=== PATIENT | male | born 1940 | race Caucasian/White ===

== ENCOUNTER 2016-08-04 03:30 | Inpatient (IN) | payer BC ==
--- NOTE | 2016-08-04 03:46 | PDOC ---
History of Present Illness - General History Source: Patient Exam Limitations: No Limitations - History of Present Illness Initial Comments: 08/04/16 05:46 The patient is a 75 year old male with a PMHx of HTN, hypercholesterolemia, stents s/p GA, on dialysis with left arm fistula who presents to the ED with AV shunt bleeding tonight. The patient states that a scab formed around his shunt. He states that while cleaning his arm, the scab peeled and it started bleeding excessively. He denies any other complaints. <Zamzam Powell - Last Filed: 08/04/16 06:54> <Maisha Melendez - Last Filed: 08/04/16 07:30> - General Chief Complaint: AV shunt bleeding Stated Complaint: BLEEDING LEFT ARM Time Seen by Provider: 08/04/16 03:46 Past History <Zamzam Powell - Last Filed: 08/04/16 06:54> <Maisha Melendez - Last Filed: 08/04/16 07:30> - Past Medical History Allergies/Adverse Reactions: Allergies Allergy/AdvReac Type Severity Reaction Status Date / Time No Known Allergies Allergy Verified 08/04/16 04:02 Home Medications: Ambulatory Orders Aspirin [ASA -] 81 mg PO BID 08/04/16 Calcium Acetate [Phoslo -] 667 mg PO TIDCM 08/04/16 Carvedilol [Coreg -] 3.125 mg PO ASDIR 08/04/16 Clopidogrel Bisulfate [Plavix -] 75 mg PO DAILY 08/04/16 Folic Acid 1 mg PO TID 08/04/16 Sevelamer Carbonate [Renvela] 800 mg PO BID 08/04/16 Review of Systems - Review of Systems Comments:: 08/04/16 05:46 GENERAL/CONSTITUTIONAL: No fever or chills. No weakness. HEAD, EYES, EARS, NOSE AND THROAT: No change in vision. No ear pain or discharge. No sore throat. CARDIOVASCULAR: No chest pain or shortness of breath. RESPIRATORY: No cough, wheezing, or hemoptysis. GASTROINTESTINAL: No nausea, vomiting, diarrhea or constipation. GENITOURINARY: No dysuria, frequency, or change in urination. MUSCULOSKELETAL: No joint or muscle swelling or pain. No neck or back pain. SKIN: + active bleeding in left arm. No rash NEUROLOGIC: No headache, vertigo, loss of consciousness, or change in strength/ sensation. ENDOCRINE: No increased thirst. No abnormal weight change. HEMATOLOGIC/LYMPHATIC: No anemia, easy bleeding, or history of blood clots. ALLERGIC/IMMUNOLOGIC: No hives or skin allergy. <PowellJuan R carrilloZamzam A - Last Filed: 08/04/16 06:54> *Physical Exam - Vital Signs Last Vital Signs Temp Pulse Resp BP Pulse Ox 98.2 F 84 19 90/57 98 08/04/16 03:55 08/04/16 03:55 08/04/16 03:55 08/04/16 03:55 08/04/16 03:55 - Physical Exam Comments: 08/04/16 05:47 GENERAL: Awake, alert, and fully oriented, in no acute distress HEAD: No signs of trauma EYES: PERRLA, EOMI, sclera anicteric, conjunctiva clear ENT: Auricles normal inspection, hearing grossly normal, nares patent, oropharynx clear without exudates. Moist mucosa NECK: Normal ROM, supple, no lymphadenopathy, JVD, or masses LUNGS: Breath sounds equal, clear to auscultation bilaterally. No wheezes, and no crackles HEART: Regular rate and rhythm, normal S1 and S2, no murmurs, rubs or gallops ABDOMEN: Soft, nontender, normoactive bowel sounds. No guarding, no rebound. No masses EXTREMITIES: Normal range of motion, no edema. No clubbing or cyanosis. No cords, erythema, or tenderness NEUROLOGICAL: Cranial nerves II through XII grossly intact. Normal speech, normal gait SKIN: Warm, Dry, normal turgor, no rashes or lesions noted. <Zamzam Powell A - Last Filed: 08/04/16 06:54> ED Treatment Course - LABORATORY CBC & Chemistry Diagram: 08/04/16 04:18 08/04/16 04:18 - ADDITIONAL ORDERS Additional order review: Laboratory Results 08/04/16 08/04/16 08/04/16 04:18 04:18 04:18 INR 1.02 PTT (Actin FS) 37.2 H Sodium 138 Potassium 5.2 H Chloride 96 L Carbon Dioxide 25 Anion Gap 17 H BUN 44 H Creatinine 11.4 H* Creat Clearance w eGFR 4.42 Random Glucose 111 H Calcium 8.4 L Total Bilirubin 1.6 H AST 7 L ALT 17 Alkaline Phosphatase 102 Total Protein 6.5 Albumin 3.4 08/04/16 04:18 RBC 4.38 MCV 96.8 H MCHC 33.9 RDW 15.3 MPV 9.2 Neutrophils % 72.2 Lymphocytes % 15.4 Monocytes % 6.2 Eosinophils % 4.7 H Basophils % 1.5 <Zamzam Powell - Last Filed: 08/04/16 06:54> - LABORATORY CBC & Chemistry Diagram: 08/04/16 04:18 08/04/16 04:18 <Maisha Melendez - Last Filed: 08/04/16 07:30> Medical Decision Making - Medical Decision Making 08/04/16 07:27 Pt comes with puncture wound in his AV graft. Area was wrapped and allowed to heal; however, within 1 minte of removing his dressing, the AV graft pups blood. Pt will be admitted for dialysis today and for vascular surgery treatment of the AV graft puncture. Pt is otherwise stable and labs are normal. <Maisha Melendez - Last Filed: 08/04/16 07:30> *DC/Admit/Observation/Transfer - Attestations Scribe Attestion: 08/04/16 05:47 Documentation prepared by Zamzam Powell, acting as medical sales for Maisha Melendez MD. <Zamzam Powell - Last Filed: 08/04/16 06:54> - Discharge Dispostion Admit: Yes <Maisha Melendez - Last Filed: 08/04/16 07:30> Diagnosis at time of Disposition: AV shunt malfunction, Hemorrhage - Referrals
[2016-08-04 04:36] LABS: BASOPHIL 1.5 % (0-2.0); EOSINOPHIL 4.7 % (0-4.5); MCH 32.8 pg (25.7-33.7); MCHC 33.9 g/dl (32.0-35.9); MEAN CELL VOLUME 96.8 fl (80-96); MEAN PLT VOLUME 9.2 fl (7.5-11.1); NEUTROPHILS 72.2 % (42.8-82.8); PLATELET COUNT 235 K/MM3 (134-434); RDW 15.3 % (11.9-15.9); WHITE BLOOD COUNT 10.2 K/mm3 (4.0-10.0)
[2016-08-04 04:59] LABS: INR 1.02 (0.82-1.09); PROTHROMBIN TIME (PATIENT) 11.2 SEC (9.98-11.88)
[2016-08-04 05:08] LABS: ALBUMIN 3.4 g/dl (3.4-5.0); BILIRUBIN,TOTAL 1.6 mg/dL (0.2-1.0); CALCIUM 8.4 mg/dL (8.5-10.1); TOT PROT 6.5 g/dl (6.4-8.2)
[2016-08-04 05:16] LABS: CREATININE 11.4 mg/dL (0.7-1.3)
[2016-08-04] MEDS ORDERED: CARVEDILOL 3.125 MG TABLET (FP) PO SCH (05:30)
[2016-08-04] MEDS ORDERED: CARVEDILOL 3.125 MG TABLET (FP) ONE (05:43)
[2016-08-04] MEDS ORDERED: FOLIC ACID 1 MG TABLET (FP) ONE (06:22)
[2016-08-04] MEDS: FOLIC ACID 1 MG TABLET (FP) PO SCH ×2 (06:29→19:28)
[2016-08-04] MEDS ORDERED: SEVELAMER CARBONATE 800 MG TAB (FP) PO SCH (10:00)
[2016-08-04] MEDS: CALCIUM ACETATE 667 MG CAPSULE (FP) PO SCH ×3 (10:15→19:28)
--- NOTE | 2016-08-04 11:23 | CONSULT ---
Consult - text type - Consultation Consultation Note: Renal Consult for ESRD on HD This is a 75 year old Gentleman with PMhx of ESRD on HD (x 9 years MWF), CAD who presented from home with bleeding from AVF. Pt last had dialysis on Thursday without complication. Had a eschar on his fistula site that feel off when he was cleaning his arm and he started to bleed. He could not control the bleeding and called EMS. He required a stitch to be placed in the ED. Denies any CP, sob , ABd pain, N/V/D, flank pain, fever, chills. Denies frequent bleeding post dialysis. Last access evaluation by Vascular Sx was 4 months ago with a normal study as per the pt. PMhx: as aper HPI Allergies: NKDA Family Hx: NC Social Hx: No T/A/D ROS: as per HPI Home Meds: Home Medications Medication Instructions Recorded Aspirin [ASA -] 81 mg PO BID 08/04/16 Calcium Acetate [Phoslo -] 667 mg PO TIDCM 08/04/16 Carvedilol [Coreg -] 3.125 mg PO ASDIR 08/04/16 Clopidogrel Bisulfate [Plavix -] 75 mg PO DAILY 08/04/16 Folic Acid 1 mg PO TID 08/04/16 Sevelamer Carbonate [Renvela] 800 mg PO BID 08/04/16 Vital Signs Temperature 97.6 F 08/04/16 07:42 Pulse Rate 77 08/04/16 07:42 Respiratory Rate 18 08/04/16 07:42 Blood Pressure 86/54 08/04/16 07:42 O2 Sat by Pulse Oximetry (%) 96 08/04/16 07:42 Intake & Output 08/01/16 08/02/16 08/03/16 08/04/16 23:59 23:59 23:59 23:59 Weight 178 lb Gen: NAD, awake and alert HEENT: NC/AT, MMM, No JVD CVS: RRR, No M/R Lungs: CTA, no rales or wheeze Abd: soft NT/ND Ext: No edema, clubbing or cyanosis Neuro: No focal defects Access: Left forearm AVF + thrill and bruit CBC, BMP 08/04/16 04:18 08/04/16 04:18 Laboratory Tests 08/04/16 04:18 Calcium 8.4 L Total Bilirubin 1.6 H AST 7 L Albumin 3.4 Current Medications Calcium Acetate (Phoslo -) 667 mg PO TIDCM [facility] Last Admin: 08/04/16 10:15 Dose: Not Given Carvedilol (Coreg -) 3.125 mg PO ASDIR [facility] Folic Acid (Folic Acid -) 1 mg PO TID [facility] Last Admin: 08/04/16 06:29 Dose: 1 mg Sevelamer Carbonate (Renvela -) 800 mg PO BID [facility] Last Admin: 08/04/16 11:12 Dose: 800 mg A/P 75 year old Gentleman with PMhx of ESRD on HD (x 9 years MWF), CAD who presented from home with bleeding from AVF. Pt last had dialysis on Thursday without complication. #Bleeding of AVF site No further bleeding at this time Will need AVF evalulation to r/o stenosis as outpatient Vascular Sx follow up - can be outpatient #ESRD on HD for Dialysis today as inpatient plan for 3.5 hour Tx Goal UF is 1.5-2L Dose all meds for intermittent HD #CAD Continue Coreg #Renal Osteodystrophy Continue Renvela TID with meals Thank you Kenji Leon DO
--- NOTE | 2016-08-04 11:29 | PN ---
Progress Note (short form) - Note Progress Note: Pt seen and examined with Dr. Reed this am. He was admitted for bleeding from his left arm AVF. The patient states that his last dialysis was on Thursday. The fistula was originally created by Dr. Jc. Vital Signs Period Temp Pulse Resp BP Sys/[place] Pulse Ox Last 24 Hr 97.6 F-98.2 F 77-84 18-19 86-90/54-57 96-98 Left arm: AVF site with blake wrap i place, palpable thrill in fistula above and below the bandage. Bandage removed by Dr. Reed, no bleeding at the site but the was a small opening in the skin. A single stitch was placed by him with a 2.0 silk. CBC, BMP 08/04/16 04:18 08/04/16 04:18 Problem List - Problems (1) AV shunt malfunction Assessment/Plan: Left arm with small opening and suture placed. No evidence of further bleeding. Spoke with the patient and Dr. Mckinnon. The patient was admitted and he was deciding if he wanted to stay or arrange for HD in his center. Either way, the fistula may be used. If no further issues after HD in house then he may be discharge by medicine. The patient was referred to Dr. Reed today who is covering for Dr. Jc. The patient should f/u with Dr. Pandya as an oupt in his office upon in the next week. Please reconsult for any further issues. Code(s): T82.591A - [facility] COMPL OF SURGICALLY CREATED ARTERIOVENOUS SHUNT, INIT
[2016-08-04] MEDS ORDERED: HEMOQUE TEST 1 EACH EACH ONE (11:55)
--- NOTE | 2016-08-04 12:05 | HP ---
Admitting History and Physical - Admission Chief Complaint: bleeding AV graft History of Present Illness: 75 yo male, h/o nephrotic syndrome, on dialysis M/W/F presents with bleeding at dialysis site at AV graft on his left arm. Notes that graft has been working OK , but since larger dialysis needles have been used lately, has had increased bleeding. Had an escar on the dialysis entry site from Thursday and when he cleaned it off, blood started to leak out briskly. Last night in ED bleeding continued. Seen this morning by vascular and a suture was placed at site, with bleeding now ceased. Feelinf OK otherwise, no chest pain, no shortness of breath, no fevers. 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 Other Social History: , 1 son Home Medications - Allergies Allergies/Adverse Reactions: Allergies Allergy/AdvReac Type Severity Reaction Status Date / Time No Known Allergies Allergy Verified 08/04/16 04:02 - Home Medications Home Medications: Ambulatory Orders Aspirin [ASA -] 81 mg PO BID 08/04/16 Calcium Acetate [Phoslo -] 667 mg PO TIDCM 08/04/16 Carvedilol [Coreg -] 3.125 mg PO ASDIR 08/04/16 Clopidogrel Bisulfate [Plavix -] 75 mg PO DAILY 08/04/16 Folic Acid 1 mg PO TID 08/04/16 Sevelamer Carbonate [Renvela] 800 mg PO BID 08/04/16 Family Disease History - Family Disease History Family History: Unremarkable Review of Systems - Review of Systems Constitutional: denies: Chills, Lethargy Eyes: reports: No Symptoms HENT: denies: Difficult Swallowing, Epistaxis, Throat Pain Neck: denies: Pain on Movement, Tenderness Cardiovascular: denies: Chest Pain, Palpitations Respiratory: denies: Cough, SOB Gastrointestinal: denies: Abdominal Pain, Diarrhea, Dysphagia, Nausea, Vomiting Genitourinary: denies: Burning, Discharge, Dysuria Physical Examination Vital Signs: Vital Signs Temperature 98.1 F 08/04/16 12:00 Pulse Rate 71 08/04/16 12:00 Respiratory Rate 18 08/04/16 12:00 Blood Pressure 125/56 08/04/16 12:00 O2 Sat by Pulse Oximetry (%) 99 08/04/16 12:00 Constitutional: Yes: Well Nourished, No Distress, Calm Eyes: Yes: Conjunctiva Clear, EOM Intact, PERRL HENT: Yes: Atraumatic, Normocephalic Neck: Yes: Supple, Trachea Midline Cardiovascular: Yes: Regular Rate and Rhythm, S1, S2. No: Murmur Respiratory: Yes: Regular, CTA Bilaterally. No: Rales, Rhonchi, Wheezes Gastrointestinal: Yes: Normal Bowel Sounds, Soft. No: Distention, Tenderness Extremities: Yes: Other (left arm AV fistula with suture present, no current bleeding) Edema: No Neurological: Yes: Alert, Oriented Problem List - Problems (1) AV shunt malfunction Assessment/Plan: -bleedign ceased now after vascular intervention (put suture) -OK for dialysis Code(s): T82.591A - [facility] COMPL OF SURGICALLY CREATED ARTERIOVENOUS SHUNT, INIT (2) ESRD (end stage renal disease) on dialysis Assessment/Plan: -missed dialysis thsi morning -to be set up for dialysis here, then can D/C home Code(s): N18.6 - END STAGE RENAL DISEASE Z99.2 - DEPENDENCE ON RENAL DIALYSIS (3) CAD (coronary artery disease) Assessment/Plan: -stable (will hold ASA and Plavix today due to bleeding -can resume tomorrow) Code(s): I25.10 - ATHSCL HEART DISEASE OF [place] CORONARY ARTERY W/O ANG PCTRS
[2016-08-04 14:00] VITALS: BMI 25.0
--- NOTE | 2016-08-04 16:13 | EKG ---
Test Reason : Blood Pressure : / mmHG Vent. Rate : 075 BPM Atrial Rate : 075 BPM P-R Int : 184 ms QRS Dur : 108 ms QT Int : 396 ms P-R-T Axes : 040 -59 074 degrees QTc Int : 442 ms NORMAL SINUS RHYTHM LEFT AXIS DEVIATION MINIMAL VOLTAGE CRITERIA FOR LVH, MAY BE NORMAL VARIANT SEPTAL INFARCT (CITED ON OR BEFORE 04-AUG-2016) POSSIBLE LATERAL INFARCT (CITED ON OR BEFORE 04-AUG-2016) INFERIOR INFARCT , AGE UNDETERMINED ABNORMAL ECG WHEN COMPARED WITH ECG OF 25-NOV-2008 23:13, VENT. RATE HAS DECREASED BY 44 BPM QRS DURATION HAS INCREASED Confirmed by TERRANCE FERNANDEZ, WESTON ([id number]) on 08/04/2016 4:13:22 PM Referred By: Confirmed By:WESTON CARLOS MD
[2016-08-04 17:57] VITALS: BP 123/60; PULSE 95; TEMP 97.8
--- NOTE | 2016-08-04 18:04 | DS ---
Physical Examination Vital Signs: Vital Signs Temperature 97.8 F 08/04/16 17:56 Pulse Rate 95 H 08/04/16 17:56 Respiratory Rate 18 08/04/16 17:56 Blood Pressure 123/60 08/04/16 17:56 O2 Sat by Pulse Oximetry (%) 100 08/04/16 17:56 Discharge Summary Reason For Visit: MALFUNCTION OF ARTERIOVENOUS SHUNT Current Active Problems AV shunt malfunction (Acute) CAD (coronary artery disease) (Acute) ESRD (end stage renal disease) on dialysis (Acute) Hemorrhage (Acute) Hospital Course: (see H&P from earlier today) -Completed dialysis session, no bleeding noted -OK for d/c home (has dialysis on Thu as outpatient) - Instructions Diet, Activity, Other Instructions: Folllow-up with Dr. Marshall next week for evaluation of fistula and suture removal. Referrals: Napoleon Matias MD [Primary Care Provider] - Alfonso Marshall MD [Staff Physician] - Disposition: HOME - Home Medications Comprehensive Discharge Medication List: Ambulatory Orders Aspirin [ASA -] 2 tab PO BID 08/04/16 Calcium Acetate [Phoslo -] 667 mg PO TIDCM 08/04/16 Carvedilol [Coreg -] 3.125 mg PO ASDIR 08/04/16 Clopidogrel Bisulfate [Plavix -] 75 mg PO DAILY 08/04/16 Folic Acid 1 mg PO TID 08/04/16 Sevelamer Carbonate [Renvela -] 800 mg PO BID 08/04/16
[2016-08-06 06:05] LABS: HEP B SURFACE AB Non Reactive (.)
== END 2016-08-04 17:00 | disposition home or self-care (01) | DRG 314 ==
LOC: JER 03:30 → SUPCPDRO 03:30 → JERBED 05:18 → J7W 17:15
PROVIDERS: ADMIT Specialist; ATTEND Specialist
PROC: 5A1D00Z (ICD-10-PCS; principal; 2016-08-04)
DX: T82.41XA Breakdown (mechanical) of vascular dialysis catheter, initial encounter (principal); N18.6 End stage renal disease; I12.0 Hypertensive chronic kidney disease with stage 5 chronic kidney disease or end stage renal disease; Q61.01 Congenital single renal cyst; Y83.8 Other surgical procedures as the cause of abnormal reaction of the patient, or of later complication, without mention of misadventure at the time of the procedure; Y92.89 Other specified places as the place of occurrence of the external cause; I25.10 Atherosclerotic heart disease of native coronary artery without angina pectoris; Z99.2 Dependence on renal dialysis; E78.5 Hyperlipidemia, unspecified; I25.2 Old myocardial infarction; K76.0 Fatty (change of) liver, not elsewhere classified; Z87.891 Personal history of nicotine dependence
CPT/HCPCS: 36415; 71020-TC; 80053; 85025; 85610; 85730; 86704; 86706; 86708; 86850; 86900; 86901; 87340; 93005; 93010; 99283-25

== ENCOUNTER 2018-12-07 06:12 | Inpatient (IN) | payer BC ==
[2018-12-07] MEDS ORDERED: HEPARIN NA (PORCINE) 5,000 UNITS/ML 1ML VIAL ONE ×3 (07:28→10:45)
--- NOTE | 2018-12-07 07:44 | HP ---
History & Physical Update - History History: No Change - Physical Physical: No Change - Assessment Assessment: No Change - Plan Plan: No Change (Initial H&P is located in patient's chart. Completed 11/30/[address] Napoleon Matias. It is complete and accurate. No new medications or complaints. Here today for RLE femoral-bypass.)
[2018-12-07] MEDS ORDERED: ceFAZolin SODIUM 1 GM VIAL ONE (08:11)
[2018-12-07] MEDS ORDERED: fentaNYL CITRATE 250 MCG/5 ML VIAL ONE (08:11)
[2018-12-07] MEDS ORDERED: MIDAZOLAM HCL 2 MG/2 ML SINGLE DOSE VIAL ONE (08:11)
[2018-12-07] MEDS ORDERED: PROPOFOL 20 ML ONE ×2 (08:11)
[2018-12-07] MEDS ORDERED: ETOMIDATE 20 MG/10 ML AMPUL IVPUSH ONE (08:11)
[2018-12-07] MEDS ORDERED: ROCURONIUM BROMIDE 50 MG/5 ML SYRINGE ONE ×3 (08:11→11:47)
[2018-12-07] MEDS ORDERED: LIDOCAINE HCL/PF 2% SDV 5ML VIAL ONE (08:11)
[2018-12-07] MEDS ORDERED: ceFAZolin SODIUM 1 GM VIAL IVPB ONE (08:48)
[2018-12-07] MEDS ORDERED: EPHEDRINE SULFATE/0.9% NACL/PF 50 MG/10 ML SYRINGE NR ONE (08:49)
[2018-12-07] MEDS ORDERED: PAPAVERINE HCL 30 MG/1 ML 10 ML VIAL NR ONE ×2 (09:02→10:23)
[2018-12-07] MEDS ORDERED: THROMBIN (BOVINE) 5,000 UNIT VIAL TP ONE ×3 (11:26→11:36)
[2018-12-07] MEDS ORDERED: [UNRECOGNIZED DRUG - SUPPLY] TP ONE (11:30)
[2018-12-07] MEDS ORDERED: PROTAMINE SULFATE 50 MG/5 ML VIAL ONE (12:22)
[2018-12-07] MEDS ORDERED: NEOSTIGMINE METHYLSULFATE 0.5 MG/ML - 10 ML MDV ONE (12:37)
[2018-12-07] MEDS ORDERED: GLYCOPYRROLATE 0.2 MG/1 ML VIAL ONE (12:37)
--- NOTE | 2018-12-07 12:41 | OP ---
Operative Note - Note: Operative Date: 12/07/18 Pre-Operative Diagnosis: Gangrene right foot Operation: Right femoral popliteal bypass, in situ GSV Post-Operative Diagnosis: Same as Pre-op Surgeon: Alfonso Marshall Screw Machine Set Up Operator Tool: Pramod Perez Anesthesiologist/DESIGN ARCHITECT: Naomi Baker Anesthesia: General Estimated Blood Loss (mls): 250
[2018-12-07] MEDS ORDERED: ONDANSETRON 4 MG/2 ML VIAL IVPUSH PRN (13:40)
--- NOTE | 2018-12-07 13:41 | SURG ---
Surgery Prepress Technician Note Prepress Technician: Pramod Perez PA-C Date of Service: 12/07/18 Diagnosis: Gangrene right foot Procedure: Right femoral popliteal bypass, in situ GSV I was present for the entirety of the operative procedure. For further detail, please refer to operative report. Visit type - Case Type Case Type: Scheduled - New patient This patient is new to me today: Yes Date on this admission: 12/07/18
[2018-12-07] MEDS ORDERED: ONDANSETRON 4 MG/2 ML VIAL ONE ×2 (14:29→15:27)
[2018-12-07 14:37] LABS: HEMATOCRIT 32.3 % (35.4-49); HEMOGLOBIN 10.7 GM/dL (11.7-16.9); MCH 32.6 pg (25.7-33.7); MCHC 33.2 g/dl (32.0-35.9); MEAN CELL VOLUME 98.2 fl (80-96); RBC 3.29 M/mm3 (4.00-5.60); RDW 15.1 % (11.9-15.9); WHITE BLOOD COUNT 6.5 K/mm3 (4.0-10.0)
[2018-12-07 15:01] LABS: CALCIUM 8.4 mg/dL (8.5-10.1); CREATININE 6.7 mg/dL (0.55-1.3); POTASSIUM 4.4 mmol/L (3.5-5.1)
[2018-12-07] MEDS: SODIUM CHLORIDE 1,000 ML IV SCH (15:25)
--- NOTE | 2018-12-07 15:52 | EKG ---
Test Reason : Blood Pressure : / mmHG Vent. Rate : 080 BPM Atrial Rate : 080 BPM P-R Int : 188 ms QRS Dur : 140 ms QT Int : 400 ms P-R-T Axes : 035 -54 114 degrees QTc Int : 461 ms NORMAL SINUS RHYTHM LEFT AXIS DEVIATION LEFT VENTRICULAR HYPERTROPHY WITH QRS WIDENING AND REPOLARIZATION ABNORMALITY ABNORMAL ECG WHEN COMPARED WITH ECG OF 27-JAN-2018 04:23, [place] INTERVAL HAS DECREASED QRS DURATION HAS INCREASED T WAVE INVERSION MORE EVIDENT IN LATERAL LEADS Confirmed by MD ERIK, VICKY ([id number]) on 12/07/2018 3:52:24 PM Referred By: Alfonso Marshall Confirmed By:VICKY VALENCIA MD
[2018-12-07] MEDS ORDERED: ACETAMINOPHEN 325 MG TABLET (FP) PO PRN (15:54)
[2018-12-07] MEDS ORDERED: TRIMETHOBENZAMIDE HCL 300 MG CAPSULE PO PRN (16:48)
--- NOTE | 2018-12-07 17:09 | CONSULT ---
Consultation: REQUESTING PROVIDER: CONSULT REQUEST: We have been asked to medically evaluate this patient for ICU. HISTORY OF PRESENT ILLNESS: Mr. Gómez is a 78 year old gentleman with extensive PMH of CAD, IL, PCI with stent, CABG, LV systolic dysfunction, Aortic root dilatation, DM, ESRD on HD, Ao regurgitation, HTN, HLD, Vit D and B12 deficiency, multinodular goiter, and GERD who was brought to [facility] for fem-pop bypass for nonhealing ulcer of right big , second, and third toes with gangrene and threatened limb. On my interview, pt is feeling well. Denies pain in the affected foot. He does complain of some pain at the surgical site on the RLE and R inguinal area. No other complaints at this time. Pt denies chest pain, shortness of breath, fever , chills, nausea, vomiting, diarrhea. Pt has also had surgical history of LUE AV fistula, b/l cataracts, lens replacement, and 4-vessel CABG. REVIEW OF SYSTEMS: CONSTITUTIONAL: Absent: fever, chills, diaphoresis, generalized weakness, malaise, loss of appetite, weight change HEENT: Absent: rhinorrhea, nasal congestion, throat pain, throat swelling, difficulty swallowing, mouth swelling, ear pain, eye pain, visual changes CARDIOVASCULAR: Absent: chest pain, syncope, palpitations, irregular heart rate, lightheadedness , peripheral edema RESPIRATORY: Absent: cough, shortness of breath, dyspnea with exertion, orthopnea, wheezing, stridor, hemoptysis GASTROINTESTINAL: Absent: abdominal pain, abdominal distension, nausea, vomiting, diarrhea, constipation, melena, hematochezia GENITOURINARY: Absent: dysuria, frequency, urgency, hesitancy, hematuria, flank pain, genital pain MUSCULOSKELETAL: Absent: myalgia, arthralgia, joint swelling, back pain, neck pain SKIN: Absent: rash, itching, pallor HEMATOLOGIC/IMMUNOLOGIC: Absent: easy bleeding, easy bruising, lymphadenopathy, frequent infections ENDOCRINE: Absent: unexplained weight gain, unexplained weight loss, heat intolerance, cold intolerance NEUROLOGIC: Absent: headache, focal weakness or paresthesias, dizziness, unsteady gait, seizure, mental status changes, bladder or bowel incontinence PSYCHIATRIC: Absent: anxiety, depression, suicidal or homicidal ideation, hallucinations. PHYSICAL EXAMINATION Vital Signs - 24 hr 12/07/18 12/07/1819 06:57 07:01 13:30 Temperature 98.0 F 97.6 F Pulse Rate 81 81 Respiratory 20 14 Rate Blood Pressure 133/77 148/54 L O2 Sat by Pulse 100 100 Oximetry (%) 12/07/18 12/07/18 12/07/18 13:45 14:00 14:15 Temperature Pulse Rate 75 82 76 Respiratory 14 16 18 Rate Blood Pressure 141/67 159/68 148/54 L O2 Sat by Pulse 100 100 100 Oximetry (%) 12/07/18 12/07/18 12/07/18 14:30 14:45 15:00 Temperature Pulse Rate 78 68 66 Respiratory 16 16 16 Rate Blood Pressure 152/62 146/62 132/46 L O2 Sat by Pulse 100 100 100 Oximetry (%) 12/07/18 12/07/18 12/07/18 15:15 15:25 15:50 Temperature 98.5 F Pulse Rate 76 71 Respiratory 16 16 Rate Blood Pressure 136/55 L 127/54 L O2 Sat by Pulse 100 100 100 Oximetry (%) Gen: Comfortable lying in bed in no acute distress. AAOx3 HEENT: NCAT, PERRL, EOMI Neck: supple, without jvd, no carotid bruits noted, no thyromegally, trachea central Cardio: regular rate and rhythm, normal s1s2, systolic 3/6 crescendo- decrescendo murmur at the LLSB without radiation Pulm: clear to auscultation b/l, no rales/ronhi noted Abd: nondistended, soft, tenderness to palpation RLQ near surgical site with dressing clean, dry, and intact Ext: no edema, 1+ DP & PT of LLE, clear brisk dopplerable pulses of R DP and PT ("x" indicators marked). RLE vein harvest dressing clean and intact with minor oozing under tegaderm Laboratory Results - last 24 hr 12/07/18 12/07/18 12/07/18 06:28 06:28 13:50 WBC 6.5 RBC 3.29 L Hgb 10.7 L Hct 32.3 L D MCV 98.2 H MCH 32.6 MCHC 33.2 RDW 15.1 Plt Count Manual Slide Review Platelet Comment Slt plt clumping Sodium Potassium 4.2 Chloride Carbon Dioxide Anion Gap BUN Creatinine Est GFR (CKD-EPI)AfAm Est GFR (CKD-EPI)NonAf Random Glucose Calcium Creatine Kinase Troponin I Blood Type A POSITIVE Antibody Screen Negative Crossmatch See Detail 12/07/18 14:00 WBC RBC Hgb Hct MCV MCH MCHC RDW Plt Count Manual Slide Review Platelet Comment Sodium 139 Potassium 4.4 Chloride 104 Carbon Dioxide 23 Anion Gap 12 BUN 40.0 H Creatinine 6.7 H Est GFR (CKD-EPI)AfAm 8.46 Est GFR (CKD-EPI)NonAf 7.30 Random Glucose 123 H Calcium 8.4 L Creatine Kinase 53 Troponin I 0.06 H Blood Type Antibody Screen Crossmatch Active Medications Generic Name Dose Route Start Last Admin Trade Name Freq PRN Reason Stop Dose Admin Acetaminophen 325 mg 12/07/18 15:54 Tylenol - PO 12/10/18 15:53 Q4H PRN PAIN SCALE 1-5 Amoxicillin/Clavulanate Potassium 1 tab 12/07/18 22:00 Augmentin - 500mg Tablet PO BID [facility] Aspirin 162 mg 12/08/18 10:00 Asa - PO DAILY [facility] Calcium Acetate 667 mg 12/07/18 17:30 Phoslo - PO TIDCM [facility] Carvedilol 3.125 mg 12/07/18 13:45 Coreg - PO DAILY [facility] Clopidogrel Bisulfate 75 mg 12/08/18 10:00 Plavix - PO DAILY [facility] Docusate Sodium 100 mg 12/07/18 22:00 Colace - PO BID [facility] Fentanyl 50 mcg 12/07/18 13:40 12/07/18 15:00 Sublimaze Injection - IVPUSH 50 mcg [id number] PRN Administration PAIN-PACU ORDER X 4 DOSES ONLY Folic Acid 1 mg 12/07/18 14:00 Folic Acid - PO TID [facility] Sodium Chloride 1,000 mls @ 42 mls/hr 12/07/18 13:45 12/07/18 15:25 Normal Saline - IV 0 mls ASDIR EVON Administration Cefazolin Sodium 0.5 gm/ 100 mls @ 200 mls/hr 12/07/18 18:00 Dextrose IVPB 12/08/18 02:29 Q8HIV [facility] Midodrine 5 mg 12/08/18 10:00 Proamatine - PO DAILY [facility] Ondansetron HCl 4 mg 12/07/18 13:40 Zofran Injection IVPUSH Q6H PRN NAUSEA AND/OR VOMITING Oxycodone HCl 5 mg 12/07/18 15:54 Roxicodone - PO Q4H PRN PAIN SCALE 1-5 Rosuvastatin Calcium 20 mg 12/07/18 22:00 Crestor - PO HS EVON Sevelamer Carbonate 800 mg 12/07/18 22:00 Renvela - PO BID [facility] Trimethobenzamide HCl 300 mg 12/07/18 16:48 Tigan - PO TID PRN NAUSEA ASSESSMENT/PLAN: Pt is a 78 y/o M with extensive cardiovascular history, DM, ESRD, HTN, HLD who was brought to [facility] for fem-pop bypass. Pt tolerated surgery well and is now in ICU for close post-op monitoring. #POD 0 Fem-pop bypass (12/07/2018) for gangrene and nonhealing ulcers of R foot -Pt is recovering well. Presently without worrisome symptoms of the RLE. Doppler of pulses is clear. -EBL 250 -Pain is currently well-controlled -monitor dopplers -tylenol, Dilaudid for pain control -ancef, augmentin -trimethobenzamide for nausea -cautious hydration considering baseline ESRD and CHF #CAD s/p IL, CABG, PCI -post op trop 0.06. Will trend -baseline EKG with sinus LBBB. F/u repeat -c/w home asa, plavix, carvedilol, #ESRD on HD -f/u with nephrology for next HD -c/w phoslo, sevelamer #HLD -c/w statin #HTN -presently controlled #Ao valvular disease & LV dysfunction, Ao root dilatation -at baseline, no intervention at present Robert Flores MD PGY-2 IM, ICU Dispo: We will continue to follow the patient. Thank you for this consultative opportunity. Visit type - Emergency Visit Emergency Visit: No - New Patient This patient is new to me today: Yes Date on this admission: 12/07/18 - Critical Care Critical Care patient: Yes Total Critical Care Time (in minutes): 45 Critical Care Statement: The care of this patient involved high complexity decision making to prevent further life threatening deterioration of the patient 's condition and/or to evaluate & treat vital organ system(s) failure or risk of failure.
[2018-12-07] MEDS: CARVEDILOL 3.125 MG TABLET (FP) PO SCH (17:18)
[2018-12-07] MEDS: oxyCODONE HCL 5 MG TABLET PO PRN (17:18)
[2018-12-07] MEDS: FOLIC ACID 1 MG TABLET (FP) PO SCH ×2 (17:23→22:30)
[2018-12-07] MEDS: CALCIUM ACETATE 667 MG CAPSULE (FP) PO SCH (17:48)
[2018-12-07] MEDS ORDERED: PT OWN MED DRAWER 7, Y5N ONE ×2 (17:51→22:27)
[2018-12-07] MEDS ORDERED: CEFAZOLIN IVPB SCH ×2 (18:00→18:46)
[2018-12-07] MEDS ORDERED: WATER IVPB SCH ×2 (18:00→18:46)
[2018-12-07] MEDS ORDERED: DEXTROSE 5% IVPB SCH ×2 (18:00→18:46)
[2018-12-07] MEDS: HYDROmorphone HCl 2 MG/ML VIAL IVPB PRN (18:49)
--- NOTE | 2018-12-07 19:16 | CONS ---
DATE OF DICTATION: 12/07/2018 CRITICAL CARE UNIT NOTE HISTORY OF PRESENT ILLNESS: The patient is a 78-year-old gentleman with a history of coronary artery disease, status post expansive anterior wall myocardial infarction, status post PCI/stenting, status post CABG, history of severe left ventricular systolic dysfunction, aortic root and ascending aortic dilatation, history of diabetes mellitus, end-stage renal disease, dialysis dependent, aortic valvular disease with mild to moderate aortic insufficiency, gangrenous right foot underwent right femoral-popliteal bypass with in situ greater saphenous vein graft. Patient was complaining of postoperative nausea but was alert and hemodynamically stable. Denies having any chest pain on discomfort. No history of dyspnea, paroxysmal nocturnal dyspnea, or orthopnea. No history of palpitations, slight lightheadedness, no dizziness. MEDICATION: 1. Zofran injection 4 mg IV push q.6 h. p.r.n. 2. Midodrine 5 mg p.o. daily. 3. Tylenol 325 mg p.o. q.4 h. p.r.n. 4. Augmentin 500 mg p.o. b.i.d. 5. Cephalosporin 0.5 g IV q.8 h. 6. Tigan 300 mg p.o. t.i.d. p.r.n. 7. Carvedilol 3.125 mg p.o. daily. 8. Colace 100 mg p.o. b.i.d. 9. Renvela 800 mg p.o. b.i.d. 10. Rosuvastatin 20 mg p.o. daily. 11. Aspirin 162 mg p.o. daily. 12. Fentanyl 50 mcg IV push q.5 minutes p.r.n. for pain. 13. Oxycodone 5 mg q.4 h. p.r.n. 14. PhosLo 667 mg p.o. t.i.d. with meals. 15. Clopidogrel 75 mg p.o. daily. 16. Folic acid 1 mg p.o. daily. PHYSICAL EXAMINATION: General: 78-year-old gentleman was complaining of nausea but was in no acute distress, there was no pallor or cyanosis noted, no clubbing or jaundice. Vital signs: At 1525 hours, blood pressure was 127/54 mmHg. Pulse 71 beats per minute and regular. Respirations 16 per minute. Oxygen saturation 100% on 4 L of oxygen. Temperature is 98.5 degrees Fahrenheit. Neck: Supple. No jugulovenous distention. Hepatojugular reflex was negative. No bruits were appreciated. There was no thyromegaly. Heart: PMI was in the 5th intercostal space, no heaves or thrills. S1 and S2 were normal. Grade 1/6 systolic ejection murmur was heard at the 2nd right intercostal space, ending in early systole. No diastolic murmur or gallops or rubs were heard. Lungs: Clear on auscultation. Abdomen: Soft, protuberant, nontender. No hepatosplenomegaly or palpable masses were felt. Small reducible epigastric incisional hernia. Bowel sounds were present. No bruits were heard. Extremities: Right foot was bandaged. There was a surgical bandage involving the medial aspect of the right thigh and calf. No pedal edema was present. A left dorsalis pedis and posterior tibial pulses were absent, right could not be palpated due to bandage. Left femoral plus was 1+. ECG: Sinus rhythm with complete left bundle branch block with associated ST and T wave abnormalities. LABORATORY DATA: CBC at 13:50 hours, WBC 6500, hemoglobin 10.7 g/dL. Platelet count was not available. But manually was found to have slight platelets clumping. Chemistry: At 1400, sodium 139, potassium 4.4, chloride 104, CO2 of 23 mmol/L. BUN 40, creatinine 6.7 mg/dL, random glucose 123 mg/dL. Troponin was 0.06. CK was 53. IMPRESSION: 1. Peripheral arterial disease, status post right femoral popliteal bypass for gangrenous changes involving the right foot. 2. Coronary artery disease, status post myocardial infarction, status post percutaneous coronary intervention/stenting, status post coronary artery bypass graft. 3. Aortic valvular disease with mild to moderate aortic insufficiency by Doppler interrogation. 4. History of left ventricular diastolic function. 5. Hypertension, hypertensive cardiovascular disease, currently normotensive. 6. History of postural hypotension. 7. End-stage renal disease dialysis dependent. 8. Left ventricular systolic dysfunction (severe), currently compensated. 9. Dyslipidemia. 10. History of aortic root and descending aortic dilatation. RECOMMENDATION: 1. Follow up troponin levels. 2. Basic metabolic profile. 3. Follow up ECG. Prognosis guarded. María [id number] MTDD
[2018-12-07] MEDS: WATER IVPB SCH (19:42)
[2018-12-07] MEDS: DEXTROSE 5% IVPB SCH (19:42)
[2018-12-07] MEDS: CEFAZOLIN IVPB SCH (19:42)
[2018-12-07] MEDS ORDERED: ROSUVASTATIN CA 20 MG TABLET (FP) PO SCH (22:00)
[2018-12-07] MEDS ORDERED: AMOX CLAV PO SCH (22:00)
[2018-12-07] MEDS: SEVELAMER CARBONATE 800 MG TAB (FP) PO SCH (22:30)
[2018-12-07] MEDS: DOCUSATE SODIUM 100 MG CAPSULE (FP) PO SCH (22:30)
[2018-12-07] MEDS: AMOX TR/POT CLAV 500MG/125MG TABLETS (FP) PO SCH (22:44)
[2018-12-08] MEDS: WATER IVPB SCH (02:42)
[2018-12-08] MEDS: CEFAZOLIN IVPB SCH (02:42)
[2018-12-08] MEDS: DEXTROSE 5% IVPB SCH (02:42)
[2018-12-08] MEDS: oxyCODONE HCL 5 MG TABLET PO PRN ×3 (02:45→21:08)
[2018-12-08] MEDS: FOLIC ACID 1 MG TABLET (FP) PO SCH ×3 (05:30→21:08)
[2018-12-08] MEDS: HYDROmorphone HCl 2 MG/ML VIAL IVPB PRN ×2 (05:39→16:39)
[2018-12-08 06:22] LABS: HEMATOCRIT 30.2 % (35.4-49); HEMOGLOBIN 10.2 GM/dL (11.7-16.9); MCH 32.9 pg (25.7-33.7); MCHC 33.8 g/dl (32.0-35.9); MEAN CELL VOLUME 97.2 fl (80-96); MEAN PLT VOLUME 9.1 fl (7.5-11.1); PLATELET COUNT 106 K/MM3 (134-434); RDW 15.1 % (11.9-15.9); WHITE BLOOD COUNT 5.4 K/mm3 (4.0-10.0)
[2018-12-08 06:42] LABS: CALCIUM 8.4 mg/dL (8.5-10.1); POTASSIUM 4.8 mmol/L (3.5-5.1)
[2018-12-08 07:03] LABS: CREATININE 7.7 mg/dL (0.55-1.3)
--- NOTE | 2018-12-08 08:15 | PN ---
Progress Note (short form) - Note Progress Note: Vascular Surgery POD#1 right fem pop bypass with GSV. Patient seen and examined at bedside with no complaints. Nursing reports patient remained stable overnight with no issues. Patient states his pain is controlled, he is tolerating his diet and he denies anyu CP, SOB, N/V, fever or chills. Vital Signs Temp 97.8 F 12/08/18 06:00 Pulse 83 12/08/18 02:00 Resp 20 12/08/18 02:00 BP 121/59 L 12/08/18 02:00 Pulse Ox 100 12/07/18 22:00 Intake & Output 12/07/18 12/07/18 12/08/18 11:59 23:59 11:59 Intake Total 1200 485 704 Output Total 200 0 Balance 1000 485 704 Weight 170 lb 10.205 oz Intake: IV 1200 210 504 Normal Saline - 1,000 ml 504 @ 42 mls/hr IV ASDIR EVON Rx#:[id number] IVPB 50 Oral 275 150 Output: Urine 0 Estimated Blood Loss 200 Other: Voiding Method Diaper Bowel Movement No No Weight Measurement [facility] CBC, BMP 12/08/18 05:30 12/08/18 05:30 Troponin, BNP 12/07/18 12/07/18 12/07/18 14:00 21:00 21:00 Troponin I 0.06 H 0.06 H 0.06 H PE: A&Ox3, NAD Unlabored resp on RA Right LE Incision c/d/i with ramez in situ and surrounding tissue intact, no evidence to tracking erythema, collection or active d/c, thigh soft, supple and mildly TTP at groin crease-appropriate to status. LE compartments soft, supple, Leg and foot well perfused with + DP and PT signal on doppler, Problem List - Problems (1) S/P femoral-popliteal bypass surgery Assessment/Plan: POD #1 patient doing well. Plan for Dialysis today per Dr Leon. 1) Continue strict bedrest today 2) Dialysis per renal -Dr Leon aware 3) Pain control 4) Encourage IS 5) Continue Aspirin and Plavix 6) Cardiology following Evaluation and plan discussed with Dr Marshall Code(s): Z95.828 - PRESENCE OF OTHER VASCULAR IMPLANTS AND GRAFTS
--- NOTE | 2018-12-08 08:28 | PN ---
Physical Exam: SUBJECTIVE: Patient seen and examined at bedside this morning. Overnight no acute events. Patient remains afebrile, normotensive. Denies lower extremity pain, weakness, or parasthesias. Denies subjective fevers, chills, shortness of breath, chest pain, palpitations, abdominal pain, nausea, vomiting. OBJECTIVE: Vital Signs Period Temp Pulse Resp BP Sys/[place] Pulse Ox Last 24 Hr 97 F-98.5 F 66-93 14-28 102-159/46-68 100-100 GENERAL: The patient is awake, alert, and fully oriented, in no acute distress. HEAD: Normocephalic, atraumatic. EYES: PERRL, extraocular movements intact, sclera anicteric, conjunctiva clear. ENT: Oropharynx clear, without erythema or exudates. Moist mucous membranes. NECK: Trachea midline, full range of motion. Supple without lymphadenopathy. Negative bruit or stridor auscultated. LUNGS: Breath sounds equal, clear to auscultation bilaterally, no wheezes, no crackles. No accessory muscle use. HEART: Regular rate and rhythm, S1, S2 without crescendo- decrescendo murmur auscultated. ABDOMEN: Soft, nondistended, nontender. No rebound tenderness, no guarding. Normoactive bowel sounds x4 quadrants. EXTREMITIES: 2+ radial, 1+ left dorsalis pedis pulse palpated. Left upperextremity AV fistula with palpable thrill. Right sided dorsalis pedis and tibilais posterior pulse clearly dopplerable. Right lower extremity vein graft site stapled clean, dry, non bleeding. No lower extremity edema. NEUROLOGICAL: Cranial nerves II through XII grossly intact. Normal speech. Laboratory Results - last 24 hr 12/07/18 12/07/18 12/07/18 06:28 13:50 14:00 WBC 6.5 RBC 3.29 L Hgb 10.7 L Hct 32.3 L D MCV 98.2 H MCH 32.6 MCHC 33.2 RDW 15.1 Plt Count MPV Manual Slide Review Platelet Comment Slt plt clumping Sodium 139 Potassium 4.4 Chloride 104 Carbon Dioxide 23 Anion Gap 12 BUN 40.0 H Creatinine 6.7 H Est GFR (CKD-EPI)AfAm 8.46 Est GFR (CKD-EPI)NonAf 7.30 Random Glucose 123 H Calcium 8.4 L Creatine Kinase 53 Troponin I 0.06 H Blood Type A POSITIVE Antibody Screen Negative Crossmatch See Detail 12/07/18 12/07/18 12/08/18 21:00 21:00 05:30 WBC 5.4 RBC 3.10 L Hgb 10.2 L Hct 30.2 L MCV 97.2 H MCH 32.9 MCHC 33.8 RDW 15.1 Plt Count 106 L D MPV 9.1 Manual Slide Review Platelet Comment Sodium Potassium Chloride Carbon Dioxide Anion Gap BUN Creatinine Est GFR (CKD-EPI)AfAm Est GFR (CKD-EPI)NonAf Random Glucose Calcium Creatine Kinase 106 Troponin I 0.06 H 0.06 H Blood Type Antibody Screen Crossmatch 12/08/18 05:30 WBC RBC Hgb Hct MCV MCH MCHC RDW Plt Count MPV Manual Slide Review Platelet Comment Sodium 135 L Potassium 4.8 Chloride 102 Carbon Dioxide 21 Anion Gap 12 BUN 47.0 H Creatinine 7.7 H* Est GFR (CKD-EPI)AfAm 7.15 Est GFR (CKD-EPI)NonAf 6.17 Random Glucose 119 H Calcium 8.4 L Creatine Kinase Troponin I Blood Type Antibody Screen Crossmatch Active Medications Generic Name Dose Route Start Last Admin Trade Name Freq PRN Reason Stop Dose Admin Acetaminophen 325 mg 12/07/18 15:54 Tylenol - PO 12/10/18 15:53 Q4H PRN PAIN SCALE 1-5 Amoxicillin/Clavulanate Potassium 1 tab 12/07/18 22:00 12/07/18 22:44 Augmentin - 500mg Tablet PO 1 tab BID [facility] Administration Aspirin 162 mg 12/08/18 10:00 Asa - PO DAILY [facility] Bacitracin 1 applic 12/08/18 10:00 Bacitracin - TP DAILY [facility] Calcium Acetate 667 mg 12/07/18 17:30 12/07/18 17:48 Phoslo - PO Not Given TIDCM [facility] Carvedilol 3.125 mg 12/07/18 13:45 12/07/18 17:18 Coreg - PO 3.125 mg DAILY [facility] Administration Clopidogrel Bisulfate 75 mg 12/08/18 10:00 Plavix - PO DAILY [facility] Docusate Sodium 100 mg 12/07/18 22:00 12/07/18 22:30 Colace - PO 100 mg BID [facility] Administration Epoetin Emmett 4,000 unit 12/08/18 07:50 Epogen - IVPUSH 12/08/18 07:51 ONCE ONE Folic Acid 1 mg 12/07/18 14:00 12/08/18 05:30 Folic Acid - PO 1 mg TID [facility]ON Administration Hydromorphone HCl 2 mg 12/07/18 18:38 12/08/18 05:39 Dilaudid Vial - IVPB 2 mg Q3H PRN Administration PAIN LEVEL 6-10 Sodium Chloride 1,000 mls @ 42 mls/hr 12/07/18 13:45 12/07/18 15:25 Normal Saline - IV 0 mls ASDIR EVON Administration Sodium Chloride 250 mls @ 3,000 mls/hr 12/08/18 07:50 Normal Saline - IV 12/09/18 07:50 PRN PRN Hypotension during Dialysis Midodrine 5 mg 12/08/18 10:00 Proamatine - PO DAILY [facility] Ondansetron HCl 4 mg 12/07/18 13:40 Zofran Injection IVPUSH Q6H PRN NAUSEA AND/OR VOMITING Oxycodone HCl 5 mg 12/07/18 15:54 12/08/18 02:45 Roxicodone - PO 5 mg Q4H PRN Administration PAIN SCALE 1-5 Rosuvastatin Calcium 20 mg 12/07/18 22:00 Crestor - PO HS [facility]ON Sevelamer Carbonate 800 mg 12/07/18 22:00 12/07/18 22:30 Renvela - PO 800 mg BID [facility] Administration Trimethobenzamide HCl 300 mg 12/07/18 16:48 12/07/18 17:46 Tigan - PO 300 mg TID PRN Administration NAUSEA ASSESSMENT/PLAN: Patient is a 78 year old male with history of admitted to ICU s/p right lower extremity femoral-popliteal bypass with in-situ GSV. Neurologic -Patient is awake, alert, communicative, oriented. No acute distress. -Monitor for signs of mental status change. Cardiovascular POD #1 s/p right lower extremity femoral-popliteal bypass with in-situ GSV. Coronary artery disease Hx RI s/P CABG x4 vessels Hypertension Hyperlipidemia Left ventricular systolic dysfunction Aortic regurgitation -Vascular surgery recommendations (Dr. Marshall) appreciated. -Pain control with Acetaminophen 325mg PO Q4 hours, Oxycodone 5mg PO Q4 hours PRN -Cardiology recommendations (Dr. Nina) appreciated. -Aspirin 162mg PO daily -Clopidogrel 75mg PO daily -Rosuvastatin 20mg PO HS Pulmonary -Patient saturating well on nasal canula. -Incentive spirometer -Maintain oxygen saturation greater that 90% Gastrointestinal -Patient tolerating renal diet without abdominal pain, nausea, vomiting -Trimethobenzamide 200mg PO TID PRN for nausea Nephrologic ESRD -Patient for hemodialysis today. -Nephrology recommendations (Dr. Leon) appreciated. Endocrine Diabetes mellitus -Insulin sliding scale ACHS -Fingerstick blood glucose monitoring ACHS FEN -Fluids: No IV fluids indicated -Electrolytes: Follow CMP -Nutrition: Renal diet Prophylaxis -SCDs bilateral lower extremities Disposition -Continue care in ICU. Visit type - Emergency Visit Emergency Visit: Yes ED Registration Date: 12/07/18 Care time: The patient presented to the Emergency Department on the above date and was hospitalized for further evaluation of their emergent condition. - New Patient This patient is new to me today: Yes Date on this admission: 12/08/18 - Critical Care Critical Care patient: Yes Total Critical Care Time (in minutes): 35 Critical Care Statement: The care of this patient involved high complexity decision making to prevent further life threatening deterioration of the patient 's condition and/or to evaluate & treat vital organ system(s) failure or risk of failure. - Discharge Referral Referred to [facility] Med [facility] No
[2018-12-08] MEDS ORDERED: PT OWN MED DRAWER 7, Y5N ONE ×3 (09:25→20:36)
[2018-12-08] MEDS: CALCIUM ACETATE 667 MG CAPSULE (FP) PO SCH ×3 (09:28→18:05)
[2018-12-08] MEDS ORDERED: SODIUM CHLORIDE 250 ML IV PRN (10:01)
[2018-12-08] MEDS ORDERED: EPOETIN ALFA 2,000 UNIT/1 ML VIAL IVPUSH ONE (10:30)
--- NOTE | 2018-12-08 11:14 | CONSULT ---
Consult - text type - Consultation Consultation Note: Renal consult for ESRD on HD This is a 78 year old gentleman with history of ESRD on HD x 13 years (MWF), CAD s/p CABG/PCI, LV dysfunction/CHF, AAA, Hypertension, Hyperlipidemia, PVD presented for Right femoral popliteal bypass. Pt seen and examined in the ICU, on dialysis currently. Using AVF for dialysis. Pt has no acute complaints. Denies any sob, cp, abd pain, fever, chills, N/V/D. Has been on pain medications with good control of his post surgical pain. PMhx: As above allergies: NKDA Family Hx: NC Social Hx: No T/A/D ROS: As per HPI, all other pertinent ros negative Home Medications Medication Instructions Recorded Calcium Acetate [Phoslo -] 667 mg PO TIDCM 08/04/16 Carvedilol [Coreg -] 3.125 mg PO ASDIR 08/04/16 Clopidogrel Bisulfate [Plavix -] 75 mg PO DAILY 08/04/16 Folic Acid 1 mg PO TID 08/04/16 Sevelamer Carbonate [Renvela -] 800 mg PO BID 08/04/16 Aspirin 162 mg PO DAILY 01/27/18 Amox-Clav 500-125 mg Tablet 1 tab PO BID 12/06/18 Midodrine HCl 5 mg PO DAILY 12/06/18 Oxycodone HCl/Acetaminophen 5 - 325 mg PO PRN PRN 12/06/18 Rosuvastatin [Crestor -] 20 mg PO HS 12/06/18 Vital Signs Temperature 98.9 F 12/08/18 09:35 Pulse Rate 104 H 12/08/18 10:10 Respiratory Rate 18 12/08/18 10:10 Blood Pressure 107/57 L 12/08/18 10:10 O2 Sat by Pulse Oximetry (%) 100 12/08/18 09:00 NAD awake and alert on NC O2 RRR, no M/R CTA, no rales or wheeze soft NT/ND Right foot in dressing no edema CBC, BMP 12/08/18 05:30 12/08/18 05:30 Current Medications Acetaminophen (Tylenol -) 325 mg PO Q4H PRN PRN Reason: PAIN SCALE 1-5 Stop: 12/10/18 15:53 Amoxicillin/Clavulanate Potassium (Augmentin - 500mg Tablet) 1 tab PO BID [facility] Last Admin: 12/07/18 22:44 Dose: 1 tab Aspirin (Asa -) 162 mg PO DAILY [facility] Bacitracin (Bacitracin -) 1 applic TP DAILY [facility] Calcium Acetate (Phoslo -) 667 mg PO TIDCM [facility] Last Admin: 12/08/18 09:28 Dose: 667 mg Carvedilol (Coreg -) 3.125 mg PO DAILY [facility] Last Admin: 12/07/18 17:18 Dose: 3.125 mg Clopidogrel Bisulfate (Plavix -) 75 mg PO DAILY [facility] Docusate Sodium (Colace -) 100 mg PO BID [facility] Last Admin: 12/07/18 22:30 Dose: 100 mg Folic Acid (Folic Acid -) 1 mg PO TID [facility] Last Admin: 12/08/18 05:30 Dose: 1 mg Hydromorphone HCl (Dilaudid Vial -) 2 mg IVPB Q3H PRN PRN Reason: PAIN LEVEL 6-10 Last Admin: 12/08/18 05:39 Dose: 2 mg Sodium Chloride (Normal Saline -) 1,000 mls @ 42 mls/hr IV ASDIR [facility] Last Admin: 12/07/18 15:25 Dose: 0 mls Sodium Chloride (Normal Saline -) 250 mls @ 3,000 mls/hr IV PRN PRN PRN Reason: Hypotension during Dialysis Stop: 12/09/18 10:00 Midodrine (Proamatine -) 5 mg PO DAILY [facility] Ondansetron HCl (Zofran Injection) 4 mg IVPUSH Q6H PRN PRN Reason: NAUSEA AND/OR VOMITING Oxycodone HCl (Roxicodone -) 5 mg PO Q4H PRN PRN Reason: PAIN SCALE 1-5 Last Admin: 12/08/18 02:45 Dose: 5 mg Rosuvastatin Calcium (Crestor -) 20 mg PO HS [facility] Sevelamer Carbonate (Renvela -) 800 mg PO BID [facility] Last Admin: 12/07/18 22:30 Dose: 800 mg Trimethobenzamide HCl (Tigan -) 300 mg PO TID PRN PRN Reason: NAUSEA Last Admin: 12/07/18 17:46 Dose: 300 mg 78 year old gentleman with history of ESRD on HD (MWF), CAD s/p CABG/PCI, LV dysfunction/CHF, AAA, Hypertension, Hyperlipidemia, PVD presented for Right femoral popliteal bypass. #ESRD on HD #PVD s/p Right femoral popliteal bypass. #CAD #Hypertension #Orthostatic hypotension ? #Anemia #Thrombocytopenia (new) Pt is tolerating dialysis well this am with goal UF of 2.5L as tolerated Renal diet, 1.2L fluid restriction daily Vascular surgery follow up continue ASA/Plavix as per cardiology Continue Midodrine for now, monitor BP Continue statin Renvela for phos binding Thank you Will follow Kenji Leon DO
[2018-12-08] MEDS: MIDODRINE HCL 5 MG TABLET PO SCH (11:30)
--- NOTE | 2018-12-08 11:55 | PN ---
Teaching Attending Note Name of Resident: Marcio Zepeda ATTENDING PHYSICIAN STATEMENT I saw and evaluated the patient. I reviewed the resident's note and discussed the case with the resident. I agree with the resident's findings and plan as documented. SUBJECTIVE: Pt seen and examined in the ICU. States pain controlled. No shortness of breath or chest pain. Currently receiving HD. OBJECTIVE: Vital Signs Period Temp Pulse Resp BP Sys/De La Cruz Pulse Ox Last 24 Hr 97 F-99.2 F 66-112 14-28 94-159/46-76 100-100 Intake & Output 12/05/18 12/06/18 12/07/18 12/08/18 23:59 23:59 23:59 23:59 Intake Total 1685 704 Output Total 200 Balance 1485 704 Weight 76.204 kg 77.4 kg Gen: NAD at rest Heart: RRR Lung: decreased breath sounds at the bases Abd: soft, nontender Ext: +DP CBC, BMP 12/08/18 05:30 12/08/18 05:30 Active Medications Acetaminophen (Tylenol -) 325 mg PO Q4H PRN PRN Reason: PAIN SCALE 1-5 Stop: 12/10/18 15:53 Amoxicillin/Clavulanate Potassium (Augmentin - 500mg Tablet) 1 tab PO BID [facility] Last Admin: 12/07/18 22:44 Dose: 1 tab Aspirin (Asa -) 162 mg PO DAILY [facility] Bacitracin (Bacitracin -) 1 applic TP DAILY [facility] Calcium Acetate (Phoslo -) 667 mg PO TIDCM [facility] Last Admin: 12/08/18 09:28 Dose: 667 mg Carvedilol (Coreg -) 3.125 mg PO DAILY [facility] Last Admin: 12/07/18 17:18 Dose: 3.125 mg Clopidogrel Bisulfate (Plavix -) 75 mg PO DAILY [facility] Docusate Sodium (Colace -) 100 mg PO BID [facility] Last Admin: 12/07/18 22:30 Dose: 100 mg Folic Acid (Folic Acid -) 1 mg PO TID [facility] Last Admin: 12/08/18 05:30 Dose: 1 mg Hydromorphone HCl (Dilaudid Vial -) 2 mg IVPB Q3H PRN PRN Reason: PAIN LEVEL 6-10 Last Admin: 12/08/18 05:39 Dose: 2 mg Sodium Chloride (Normal Saline -) 1,000 mls @ 42 mls/hr IV ASDIR [facility] Last Admin: 12/07/18 15:25 Dose: 0 mls Sodium Chloride (Normal Saline -) 250 mls @ 3,000 mls/hr IV PRN PRN PRN Reason: Hypotension during Dialysis Stop: 12/09/18 10:00 Midodrine (Proamatine -) 5 mg PO DAILY [facility] Last Admin: 12/08/18 11:30 Dose: 5 mg Ondansetron HCl (Zofran Injection) 4 mg IVPUSH Q6H PRN PRN Reason: NAUSEA AND/OR VOMITING Oxycodone HCl (Roxicodone -) 5 mg PO Q4H PRN PRN Reason: PAIN SCALE 1-5 Last Admin: 12/08/18 02:45 Dose: 5 mg Rosuvastatin Calcium (Crestor -) 20 mg PO HS [facility] Sevelamer Carbonate (Renvela -) 800 mg PO BID [facility] Last Admin: 12/07/18 22:30 Dose: 800 mg Trimethobenzamide HCl (Tigan -) 300 mg PO TID PRN PRN Reason: NAUSEA Last Admin: 12/07/18 17:46 Dose: 300 mg ASSESSMENT AND PLAN: R Foot Gangrene/PAD s/p Right Fem-Pop Bypass with GSV POD #1 ESRD on HD LV Diastolic Dysfunction CAD HTN Anemia Thrombocytopenia - pain control - pulse checks - continue antiplatelets - HD per renal - PO as tolerated - monitor CBC - DVT prophylaxis - can monitor on floor when ok with surgery
[2018-12-08] MEDS: SEVELAMER CARBONATE 800 MG TAB (FP) PO SCH ×2 (13:12→21:13)
[2018-12-08] MEDS: DOCUSATE SODIUM 100 MG CAPSULE (FP) PO SCH ×2 (13:12→21:07)
[2018-12-08] MEDS: SODIUM CHLORIDE 1,000 ML IV SCH (13:15)
[2018-12-08] MEDS: BACITRACIN 15 GM TUBE TOPICAL OINTMENT TP SCH (13:16)
[2018-12-08] MEDS: CLOPIDOGREL BISULFATE 75 MG TABLET (FP) PO SCH (13:16)
[2018-12-08] MEDS: CARVEDILOL 3.125 MG TABLET (FP) PO SCH (13:16)
[2018-12-08] MEDS: ASPIRIN 81 MG CHEWABLE TABLETS PO SCH (13:19)
[2018-12-08] MEDS: AMOX TR/POT CLAV 500MG/125MG TABLETS (FP) PO SCH ×2 (13:20→21:06)
--- NOTE | 2018-12-08 15:41 | PN ---
Progress Note (short form) - Note Progress Note: Anesthesia Post op Pt seen and examined S:alert and awake O: Vital Signs Temperature 98.9 F 12/08/18 09:35 Pulse Rate 108 H 12/08/18 13:15 Respiratory Rate 18 12/08/18 13:15 Blood Pressure 101/41 L 12/08/18 13:15 O2 Sat by Pulse Oximetry (%) 100 12/08/18 09:00 CBC, BMP 12/08/18 05:30 12/08/18 05:30 A/P:s/p Right Fem-pop bypass Doing well post op Continue current care Mayelin Brooks MD
--- NOTE | 2018-12-08 17:20 | CONS ---
DATE OF CONSULTATION: 12/08/2018 CRITICAL CARE UNIT CONSULTATION HISTORY OF PRESENT ILLNESS: The patient was seen in the CCU and was undergoing hemodialysis. Since his initial admission to the CCU, he has no further nausea. It was most likely related to anesthetics. He has no chest pain or discomfort, no dyspnea has been noted. He complains of incisional pain involving the right lower extremity. There is no history of palpitations, lightheadedness, dizziness. No history of cough or expectoration. He has sinus tachycardia which is most likely related to hemodialysis. PHYSICAL EXAMINATION: General: A 78-year-old gentleman in no acute distress, no pallor, cyanosis, clubbing or jaundice. Vital signs: Blood pressure 101/41 mmHg at 1315 hours. Earlier, at 12 noon his blood pressure was 84/54 mmHg while undergoing dialysis. Pulse is 108 beats per minute and regular. Respirations were 18 per minute. Neck: Supple. No jugulovenous distention, hepatojugular reflex was negative, carotids were 2+, upstrokes were normal, no bruits were heard. Heart: PMI was in the 5th intercostal space, no heaves or thrills. S1 and S2 were normal. Grade 1/6 ejection systolic murmur was heard at the 2nd right intercostal space ending in early systole. No diastolic murmur or gallops were heard. Lungs: Clear on auscultation. Abdomen: Soft, nontender, no hepatosplenomegaly or palpable masses were felt. Extremities: No calf tenderness. Right foot was bandaged. Surgical bandage involving the right thigh and calf. Latest ECG is not available. LABORATORY DATA: Chemistry December 08, 2018, 5:30 a.m.: Sodium 135, potassium 4.8, chloride 102, CO2 of 21 mmol/L. BUN 47, creatinine 7.7 mg/dL. Random glucose was 119. Troponin was 0.06 on 3 different occasions. CK was 53 and 106, respectively. CBC: WBC 5400, hemoglobin 10.2 g/dL, hematocrit 13.2%. Platelet count 106,000. IMPRESSION: 1. Coronary artery disease, status post myocardial infarction, status post percutaneous coronary intervention/stenting, status post coronary artery bypass grafting. 2. History of left ventricular systolic dysfunction. 3. Aortic valvular disease with mild to moderate aortic insufficiency. 4. Hypertension, hypertensive cardiovascular disease currently normotensive. 5. End-stage renal disease, dialysis dependent. 6. Left ventricular diastolic dysfunction. 7. Dyslipidemia. 8. Anemia and thrombocytopenia. 9. Chronic left bundle branch block. RECOMMENDATION: 1. Follow up CBC and differential. 2. Continue medications as outlined. 3. Increase ambulation. 4. Prognosis guarded. ROSELINE CUEVAS M.D. [id number]
[2018-12-08] MEDS ORDERED: SODIUM CHLORIDE 250 ML IV STA (20:43)
[2018-12-08] MEDS ORDERED: ACETAMINOPHEN 325 MG TABLET (FP) PO ONE (23:45)
[2018-12-08] MEDS ORDERED: oxyCODONE HCL 5 MG TABLET PO ONE (23:45)
[2018-12-09] MEDS: oxyCODONE HCL 5 MG TABLET PO PRN ×2 (05:48→19:21)
[2018-12-09] MEDS: FOLIC ACID 1 MG TABLET (FP) PO SCH ×3 (05:53→21:43)
[2018-12-09 06:23] LABS: ALBUMIN 2.5 g/dl (3.4-5.0); BILIRUBIN,TOTAL 0.4 mg/dL (0.2-1); BLOOD UREA NITROGEN 21.8 mg/dL (7-18); CALCIUM 8.5 mg/dL (8.5-10.1); CREATININE 5.2 mg/dL (0.55-1.3); POTASSIUM 3.8 mmol/L (3.5-5.1); TOT PROT 5.4 g/dl (6.4-8.2)
[2018-12-09 06:25] LABS: BASO % 0.7 % (0-2.0); EOS % 4.4 % (0-4.5); HEMATOCRIT 27.2 % (35.4-49); HEMOGLOBIN 9.2 GM/dL (11.7-16.9); LYMPH % 12.6 % (8-40); MCH 33.3 pg (25.7-33.7); MCHC 33.9 g/dl (32.0-35.9); MEAN CELL VOLUME 98.2 fl (80-96); MEAN PLT VOLUME 9.3 fl (7.5-11.1); MONO % 17.1 % (3.8-10.2); NEUT % 65.2 % (42.8-82.8); PLATELET COUNT 110 K/MM3 (134-434); RBC 2.77 M/mm3 (4.00-5.60); RDW 15.2 % (11.9-15.9); WHITE BLOOD COUNT 4.8 K/mm3 (4.0-10.0)
--- NOTE | 2018-12-09 07:28 | PN ---
Physical Exam: SUBJECTIVE: Patient seen and examined at bedside this morning. Overnight no acute events. Patient remains afebrile. Tolerated hemodialysis yesterday with hypotension, 2L removed. Denies lower extremity pain, weakness, or parasthesias. Denies subjective fevers, chills, shortness of breath, chest pain , palpitations, abdominal pain, nausea, vomiting. OBJECTIVE: Vital Signs Period Temp Pulse Resp BP Sys/De La Cruz Pulse Ox Last 24 Hr 98.1 F-99.4 F 82-112 16-22 84-143/11-76 100-100 GENERAL: The patient is awake, alert, and fully oriented, in no acute distress. HEAD: Normocephalic, atraumatic. EYES: PERRL, extraocular movements intact, sclera anicteric, conjunctiva clear. ENT: Oropharynx clear, without erythema or exudates. Moist mucous membranes. NECK: Trachea midline, full range of motion. Supple without lymphadenopathy. Negative bruit or stridor auscultated. LUNGS: Breath sounds equal, clear to auscultation bilaterally, no wheezes, no crackles. No accessory muscle use. HEART: Regular rate and rhythm, S1, S2 without crescendo- decrescendo murmur auscultated. ABDOMEN: Soft, nondistended, nontender. No rebound tenderness, no guarding. Normoactive bowel sounds x4 quadrants. EXTREMITIES: 2+ radial, 1+ left dorsalis pedis pulse palpated. Left upperextremity AV fistula with palpable thrill. Right sided dorsalis pedis and tibilais posterior pulse clearly dopplerable. Right lower extremity vein graft site stapled clean, dry, non bleeding. No lower extremity edema. NEUROLOGICAL: Cranial nerves II through XII grossly intact. Normal speech. Laboratory Results - last 24 hr 12/08/18 12/09/18 12/09/18 09:40 05:05 05:41 Sodium 138 Potassium 3.8 Chloride 100 Carbon Dioxide 32 Anion Gap 6 L BUN 21.8 H Creatinine 5.2 H Est GFR (CKD-EPI)AfAm 11.49 Est GFR (CKD-EPI)NonAf 9.92 POC Glucometer 99 Random Glucose 113 H Calcium 8.5 Total Bilirubin 0.4 AST 20 ALT 9 L Alkaline Phosphatase 78 Total Protein 5.4 L Albumin 2.5 L Hep Bs Antigen Negative Hep C Ab Diagnostic <0.1 Active Medications Generic Name Dose Route Start Last Admin Trade Name Freq PRN Reason Stop Dose Admin Acetaminophen 325 mg 12/07/18 15:54 12/09/18 05:55 Tylenol - PO 12/10/18 15:53 325 mg Q4H PRN Administration PAIN SCALE 1-5 Amoxicillin/Clavulanate Potassium 1 tab 12/07/18 22:00 12/08/18 21:06 Augmentin - 500mg Tablet PO 1 tab BID [facility] Administration Aspirin 162 mg 12/08/18 10:00 12/08/18 13:19 Asa - PO 162 mg DAILY [facility] Administration Bacitracin 1 applic 12/08/18 10:00 12/08/18 13:16 Bacitracin - TP 1 applic DAILY [facility] Administration Calcium Acetate 667 mg 12/07/18 17:30 12/08/18 18:05 Phoslo - PO 667 mg TIDCM [facility] Administration Carvedilol 3.125 mg 12/07/18 13:45 12/08/18 13:16 Coreg - PO Not Given DAILY [facility] Clopidogrel Bisulfate 75 mg 12/08/18 10:00 12/08/18 13:16 Plavix - PO 75 mg DAILY [facility] Administration Docusate Sodium 100 mg 12/07/18 22:00 12/08/18 21:07 Colace - PO 100 mg BID [facility] Administration Folic Acid 1 mg 12/07/18 14:00 12/09/18 05:53 Folic Acid - PO 1 mg TID [facility] Administration Hydromorphone HCl 2 mg 12/07/18 18:38 12/08/18 16:39 Dilaudid Vial - IVPB 2 mg Q3H PRN Administration PAIN LEVEL 6-10 Sodium Chloride 1,000 mls @ 42 mls/hr 12/07/18 13:45 12/08/18 13:15 Normal Saline - IV 42 mls/hr ASDIR [facility] Administration Sodium Chloride 250 mls @ 3,000 mls/hr 12/08/18 10:01 Normal Saline - IV 12/09/18 10:00 PRN PRN Hypotension during Dialysis Midodrine 5 mg 12/08/18 10:00 12/08/18 11:30 Proamatine - PO 5 mg DAILY [facility] Administration Ondansetron HCl 4 mg 12/07/18 13:40 Zofran Injection IVPUSH Q6H PRN NAUSEA AND/OR VOMITING Oxycodone HCl 5 mg 12/07/18 15:54 12/09/18 05:48 Roxicodone - PO 5 mg Q4H PRN Administration PAIN SCALE 1-5 Rosuvastatin Calcium 20 mg 12/07/18 22:00 Crestor - PO HS [facility] Sevelamer Carbonate 800 mg 12/07/18 22:00 12/08/18 21:13 Renvela - PO 800 mg BID [facility] Administration Trimethobenzamide HCl 300 mg 12/07/18 16:48 12/07/18 17:46 Tigan - PO 300 mg TID PRN Administration NAUSEA ASSESSMENT/PLAN: Patient is a 78 year old male with history of coronary artery disease, myocardial infarction, CABG, hypertension, hyperlipidemia, aortic regurgitation , left ventricular systolic dysfunction, admitted to ICU s/p right lower extremity femoral-popliteal bypass with in-situ GSV. Neurologic -Patient is awake, alert, communicative, oriented. No acute distress. -Monitor for signs of mental status change. Cardiovascular POD #2 s/p right lower extremity femoral-popliteal bypass with in-situ GSV. Coronary artery disease Hx AR s/P CABG x4 vessels Hypertension Hyperlipidemia Left ventricular systolic dysfunction Aortic regurgitation -Vascular surgery recommendations (Dr. Marshall) appreciated. -Pain control with Acetaminophen 325mg PO Q4 hours, Oxycodone 5mg PO Q4 hours PRN -Cardiology recommendations (Dr. Nina) appreciated. -Aspirin 162mg PO daily -Clopidogrel 75mg PO daily -Rosuvastatin 20mg PO HS Pulmonary -Patient saturating well on nasal canula. -Incentive spirometer -Maintain oxygen saturation greater that 90% Gastrointestinal -Patient tolerating renal diet without abdominal pain, nausea, vomiting -Trimethobenzamide 200mg PO TID PRN for nausea Nephrologic ESRD -Patient tolerated hemodialysis yesterday 2L removed. -Nephrology recommendations (Dr. Leon) appreciated. Endocrine Diabetes mellitus -Insulin sliding scale ACHS -Fingerstick blood glucose monitoring ACHS Hematologic -Hb/ Hct 9.2/ 27.2 (decreased from 10.2/ 30.2) -Follow repeat CBC today afternoon -1 unit PRBC with hemodialysis tomorrow. FEN -Fluids: No IV fluids indicated -Electrolytes: Follow CMP -Nutrition: Renal diet Prophylaxis -SCDs bilateral lower extremities Disposition -Patient medically stable for transfer to Telemetry floor. Visit type - Emergency Visit Emergency Visit: Yes ED Registration Date: 12/07/18 Care time: The patient presented to the Emergency Department on the above date and was hospitalized for further evaluation of their emergent condition. - New Patient This patient is new to me today: No - Critical Care Critical Care patient: Yes Total Critical Care Time (in minutes): 35 Critical Care Statement: The care of this patient involved high complexity decision making to prevent further life threatening deterioration of the patient 's condition and/or to evaluate & treat vital organ system(s) failure or risk of failure. - Discharge Referral Referred to [facility] Med P.C.: No
--- NOTE | 2018-12-09 08:53 | PN ---
Progress Note (short form) - Note Progress Note: Vascular Surgery POD#2 right fem pop bypass with GSV. Patient seen and examined at bedside with no complaints. Nursing reports patient remained stable overnight. Patient states his pain is controlled, he is tolerating his diet and he denies any CP, SOB, N/V, fever or chills. Vital Signs Temp 98.1 F 12/09/18 02:00 Pulse 101 H 12/09/18 06:00 Resp 20 12/09/18 06:00 BP 115/57 L 12/09/18 06:00 Pulse Ox 100 12/08/18 21:00 Intake & Output 12/08/18 12/08/18 12/09/18 11:59 23:59 11:59 Intake Total 704 1500 240 Balance 704 1500 240 Weight 170 lb 10.205 oz 171 lb 3 oz Intake: IV 504 670 Normal Saline - 1,000 ml 504 670 @ 42 mls/hr IV ASDIR [facility] Rx#:[id number] IVPB 50 100 Oral 150 730 240 Other: Voiding Method Urinal Urinal Bowel Movement No Weight Measurement Method Built in Bedscale Built in Bedscale CBC, BMP 12/09/18 05:05 12/09/18 05:05 PE: A&Ox3, NAD Unlabored resp on RA Right LE Incision c/d/i with ramez in situ and surrounding tissue intact, no evidence to tracking erythema, collection or active d/c, thigh soft, supple and mildly TTP at groin crease-appropriate to status. LE compartments soft, supple, Leg and foot well perfused with + DP and PT signal on doppler. Right foot wound unchanged, clean and dry with no active d/c Problem List - Problems (1) S/P femoral-popliteal bypass surgery Assessment/Plan: POD #2 patient doing well with post op anemia currently stable. 1) Will plan to transfuse 1 unit PRBC tomorrow with dialysis- Dr Leon aware 2) Cardiology recommendations - Dr Nina- appreciated 3) Start PT, OOB with assist and post op shoe 4) Encourage IS 5) Continue Aspirin and Plavix 6) Trend labs -cbc this afternoon 7) continue local wound care - right foot Evaluation and plan discussed with Dr Marshall Code(s): Z95.828 - PRESENCE OF OTHER VASCULAR IMPLANTS AND GRAFTS
[2018-12-09] MEDS ORDERED: PT OWN MED DRAWER 7, Y5N ONE (10:08)
[2018-12-09] MEDS: CALCIUM ACETATE 667 MG CAPSULE (FP) PO SCH ×3 (10:10→18:10)
[2018-12-09] MEDS: ASPIRIN 81 MG CHEWABLE TABLETS PO SCH (10:10)
[2018-12-09] MEDS: AMOX TR/POT CLAV 500MG/125MG TABLETS (FP) PO SCH ×2 (10:11→21:44)
[2018-12-09] MEDS: MIDODRINE HCL 5 MG TABLET PO SCH (10:11)
[2018-12-09] MEDS: DOCUSATE SODIUM 100 MG CAPSULE (FP) PO SCH ×2 (10:11→21:43)
[2018-12-09] MEDS: CARVEDILOL 3.125 MG TABLET (FP) PO SCH (10:11)
[2018-12-09] MEDS: CLOPIDOGREL BISULFATE 75 MG TABLET (FP) PO SCH (10:11)
[2018-12-09] MEDS: BACITRACIN 15 GM TUBE TOPICAL OINTMENT TP SCH (10:12)
[2018-12-09] MEDS: SEVELAMER CARBONATE 800 MG TAB (FP) PO SCH ×2 (10:16→18:10)
--- NOTE | 2018-12-09 11:06 | OP ---
DATE OF OPERATION: 12/07/2018 SURGEON: Alfonso Marshall MD MARKETING OPERATIONS MANAGER: BRENDON Varma PROCEDURE: Right femoropopliteal bypass with non-reverse greater saphenous vein, right femoral endarterectomy. PREOPERATIVE DIAGNOSIS: Gangrene of right foot. POSTOPERATIVE DIAGNOSIS: Gangrene of right foot. ANESTHESIA: General. ANESTHESIOLOGIST: KAMINI Up OPERATIVE FINDINGS: There was dense calcified plaque in the right common femoral artery extending from the external iliac to the bifurcation. The popliteal artery was also diseased, but patent distally. The greater saphenous vein was of reasonably good quality for bypass. OPERATIVE PROCEDURE: Following the induction of general anesthesia, the right lower extremity was prepped with ChloraPrep. Timeout was performed. The right great saphenous vein had been mapped preoperatively with duplex imaging. An incision was made in the proximal calf over the vein, and it was exposed using cautery for hemostasis. Large side branch was ligated and catheterized with an Angiocath. The vein was then distended throughout the procedure with heparin and papaverine solution. The incision was extended proximally to the groin over the vein. All side branches of the vein were ligated and divided. The vein was mobilized from its bed in the calf. The calf wound was deepened through the muscle fascia with cautery, and the popliteal artery identified. It was mobilized from the surrounding veins and secured with vessel loop. The incision was then extended up into the groin. The saphenofemoral junction was mobilized, and all side branches were ligated and divided. The femoral artery was then exposed lateral to the vein. Due to the dense calcification, the incision was carried proximally, and the inguinal ligament was incised to gain access to the distal external iliac artery. A site for placement of a clamp was identified. The deep femoral and superficial femoral branches were also individually secured as were the larger side branches. Small branches were ligated and divided. The vein was then completely mobilized from its bed. It was ligated distally. The saphenofemoral junction was amputated and the stump oversewn with running suture of 6-0 Prolene. The vein was flushed with heparin solution and was kept in cold solution until needed. Patient was systemically heparinized. The distal external iliac artery was then occluded with a vascular clamp. The deep femoral artery was occluded with a vessel loop as was the superficial femoral artery. Arteriotomy was made from the bifurcation proximally into the common femoral artery. Endarterectomy of the common femoral artery was performed to remove calcified plaque from the vessel. Inflow was checked and found to be pulsatile. The proximal portion of the arteriotomy was closed primarily with running suture of 6-0 Prolene. Approximately 12 mm was left open at the distal end. The vein was spatulated in a non-reverse configuration and anastomosed to the side of the artery with running suture of 6-0 Prolene. Prior to completion of the suture line, the artery was allowed to back bleed and flush, and the vein was flushed. Suture line was completed, and the vein was allowed to fill to the first competent valve. A modified De Luna valvulotome was then inserted through the distal end of the vein, and complete valvulotomy was performed. The vein was allowed to untwist and was marked. There was good flow through the vein which was clamped distally. A tunnel was then made between the heads of the gastrocnemius and through a counterincision above the knee in the muscle fascia. The vein was passed through this tunnel with care not to twist it. Popliteal artery was then occluded using bulldog clamps and an arteriotomy measuring approximately 10 mm was made. The vein was then trimmed for length with the leg extended and spatulated and anastomosed to the side of the artery with running suture of 6-0 Prolene. Following completion of the suture line, the artery was allowed to back bleed and flush, and the vein graft was flushed. Suture line was completed, and all vessels were released. There was good flow through the anastomosis with a strong Doppler signal in the distal popliteal artery, posterior tibial, and anterior tibial arteries at the ankle. Bleeding from the suture line was controlled with Surgicel and Gelfoam and thrombin. The wounds were irrigated and checked for hemostasis. Additional cautery was used where needed. The wounds were then closed with repair of the inguinal ligament using [id number] sutures of 2-0 Vicryl, the subcutaneous tissues were approximated with running suture of 3-0 Vicryl, and the skin was closed with ramez. Sterile dressings were applied, and the patient was extubated and taken to the recovery room in stable condition. ALFONSO MARSHALL M.D. [id number]
--- NOTE | 2018-12-09 11:40 | PN ---
Teaching Attending Note Name of Resident: Mracio Zepeda ATTENDING PHYSICIAN STATEMENT I saw and evaluated the patient. I reviewed the resident's note and discussed the case with the resident. I agree with the resident's findings and plan as documented. SUBJECTIVE: Pt seen and examined in the ICU. Borderline hypotension after HD yesterday, improved with IVF. Some R groin pain with movements but otherwise feels ok. No shortness of breath or chest pain. OBJECTIVE: Vital Signs Period Temp Pulse Resp BP Sys/[place] Pulse Ox Last 24 Hr 98.1 F-99.4 F 91-108 18-23 84-131/11-67 100-100 Intake & Output 12/06/18 12/07/18 12/08/18 12/09/18 23:59 23:59 23:59 23:59 Intake Total 1685 2204 240 Output Total 200 Balance 1485 2204 240 Weight 76.204 kg 77.4 kg 77.649 kg Gen: NAD at rest Heart: RRR Lung: decreased breath sounds at the bases Abd: soft, nontender Ext: no edema, +DP CBC, BMP 12/09/18 05:05 12/09/18 05:05 Active Medications Acetaminophen (Tylenol -) 325 mg PO Q4H PRN PRN Reason: PAIN SCALE 1-5 Stop: 12/10/18 15:53 Last Admin: 12/09/18 05:55 Dose: 325 mg Amoxicillin/Clavulanate Potassium (Augmentin - 500mg Tablet) 1 tab PO BID [facility] Last Admin: 12/09/18 10:11 Dose: 1 tab Aspirin (Asa -) 162 mg PO DAILY [facility] Last Admin: 12/09/18 10:10 Dose: 162 mg Bacitracin (Bacitracin -) 1 applic TP DAILY [facility] Last Admin: 12/09/18 10:12 Dose: 1 applic Calcium Acetate (Phoslo -) 667 mg PO TIDCM [facility] Last Admin: 12/09/18 10:10 Dose: 667 mg Carvedilol (Coreg -) 3.125 mg PO DAILY [facility] Last Admin: 12/09/18 10:11 Dose: 3.125 mg Clopidogrel Bisulfate (Plavix -) 75 mg PO DAILY [facility] Last Admin: 12/09/18 10:11 Dose: 75 mg Docusate Sodium (Colace -) 100 mg PO BID [facility] Last Admin: 12/09/18 10:11 Dose: 100 mg Folic Acid (Folic Acid -) 1 mg PO TID [facility] Last Admin: 12/09/18 05:53 Dose: 1 mg Hydromorphone HCl (Dilaudid Vial -) 2 mg IVPB Q3H PRN PRN Reason: PAIN LEVEL 6-10 Last Admin: 12/08/18 16:39 Dose: 2 mg Sodium Chloride (Normal Saline -) 1,000 mls @ 42 mls/hr IV ASDIR [facility] Last Admin: 12/08/18 13:15 Dose: 42 mls/hr Midodrine (Proamatine -) 5 mg PO DAILY [facility] Last Admin: 12/09/18 10:11 Dose: 5 mg Ondansetron HCl (Zofran Injection) 4 mg IVPUSH Q6H PRN PRN Reason: NAUSEA AND/OR VOMITING Oxycodone HCl (Roxicodone -) 5 mg PO Q4H PRN PRN Reason: PAIN SCALE 1-5 Last Admin: 12/09/18 05:48 Dose: 5 mg Rosuvastatin Calcium (Crestor -) 20 mg PO HS [facility] Sevelamer Carbonate (Renvela -) 800 mg PO BID [facility] Last Admin: 12/09/18 10:16 Dose: 800 mg Trimethobenzamide HCl (Tigan -) 300 mg PO TID PRN PRN Reason: NAUSEA Last Admin: 12/07/18 17:46 Dose: 300 mg ASSESSMENT AND PLAN: R Foot Gangrene/PAD s/p Right Fem-Pop Bypass with GSV POD #2 ESRD on HD LV Diastolic Dysfunction CAD HTN Anemia Thrombocytopenia - pain control - pulse checks - continue antiplatelets - HD per renal - PO as tolerated - monitor CBC - DVT prophylaxis - can monitor on floor
--- NOTE | 2018-12-09 12:15 | PN ---
Progress Note (short form) - Note Progress Note: Renal follow up for IMANI Pt seen and examined in the ICU awake and alert no acute complaints no sob, cp, abd pain s/p dialysis yesterday Vital Signs Temperature 98.4 F 12/09/18 10:00 Pulse Rate 85 12/09/18 12:00 Respiratory Rate 19 12/09/18 12:00 Blood Pressure 103/56 L 12/09/18 10:00 O2 Sat by Pulse Oximetry (%) 100 12/09/18 09:00 Intake & Output 12/06/18 12/07/18 12/08/18 12/09/18 23:59 23:59 23:59 23:59 Intake Total 1685 2204 240 Output Total 200 Balance 1485 2204 240 Weight 76.204 kg 77.4 kg 77.649 kg NAD RRR, no M/R CTA, no rales or wheeze soft NT/ND Right foot in dressing no edema CBC, BMP 12/09/18 05:05 12/09/18 05:05 Current Medications Acetaminophen (Tylenol -) 325 mg PO Q4H PRN PRN Reason: PAIN SCALE 1-5 Stop: 12/10/18 15:53 Last Admin: 12/09/18 05:55 Dose: 325 mg Amoxicillin/Clavulanate Potassium (Augmentin - 500mg Tablet) 1 tab PO BID [facility] Last Admin: 12/09/18 10:11 Dose: 1 tab Aspirin (Asa -) 162 mg PO DAILY [facility] Last Admin: 12/09/18 10:10 Dose: 162 mg Bacitracin (Bacitracin -) 1 applic TP DAILY [facility] Last Admin: 12/09/18 10:12 Dose: 1 applic Calcium Acetate (Phoslo -) 667 mg PO TIDCM [facility] Last Admin: 12/09/18 10:10 Dose: 667 mg Carvedilol (Coreg -) 3.125 mg PO DAILY [facility] Last Admin: 12/09/18 10:11 Dose: 3.125 mg Clopidogrel Bisulfate (Plavix -) 75 mg PO DAILY [facility] Last Admin: 12/09/18 10:11 Dose: 75 mg Docusate Sodium (Colace -) 100 mg PO BID [facility] Last Admin: 12/09/18 10:11 Dose: 100 mg Folic Acid (Folic Acid -) 1 mg PO TID [facility] Last Admin: 12/09/18 05:53 Dose: 1 mg Hydromorphone HCl (Dilaudid Vial -) 2 mg IVPB Q3H PRN PRN Reason: PAIN LEVEL 6-10 Last Admin: 12/08/18 16:39 Dose: 2 mg Sodium Chloride (Normal Saline -) 1,000 mls @ 42 mls/hr IV ASDIR [facility] Last Admin: 12/08/18 13:15 Dose: 42 mls/hr Midodrine (Proamatine -) 5 mg PO DAILY [facility] Last Admin: 12/09/18 10:11 Dose: 5 mg Ondansetron HCl (Zofran Injection) 4 mg IVPUSH Q6H PRN PRN Reason: NAUSEA AND/OR VOMITING Oxycodone HCl (Roxicodone -) 5 mg PO Q4H PRN PRN Reason: PAIN SCALE 1-5 Last Admin: 12/09/18 05:48 Dose: 5 mg Rosuvastatin Calcium (Crestor -) 20 mg PO HS [facility] Sevelamer Carbonate (Renvela -) 800 mg PO BID [facility] Last Admin: 12/09/18 10:16 Dose: 800 mg Trimethobenzamide HCl (Tigan -) 300 mg PO TID PRN PRN Reason: NAUSEA Last Admin: 12/07/18 17:46 Dose: 300 mg 78 year old gentleman with history of ESRD on HD (MWF), CAD s/p CABG/PCI, LV dysfunction/CHF, AAA, Hypertension, Hyperlipidemia, PVD presented for Right femoral popliteal bypass. #ESRD on HD #PVD s/p Right femoral popliteal bypass. #CAD #Hypertension #Orthostatic hypotension ? #Anemia #Thrombocytopenia (new) no acute need for dialysis today will plan for HD tomorrow plan to transfuse 1 unit PRBC with HD tomorrow will give epogen with HD as well Vascular surgery follow up continue ASA/Plavix as per cardiology Continue Midodrine for now, monitor BP Continue statin Renvela for phos binding Kenji Leon DO
[2018-12-09] MEDS ORDERED: ONDANSETRON 4 MG/2 ML VIAL IVPUSH PRN (15:04)
[2018-12-09] MEDS ORDERED: TRIMETHOBENZAMIDE HCL 300 MG CAPSULE PO PRN (15:04)
[2018-12-09 15:21] VITALS: BMI 23.1
[2018-12-09 15:48] LABS: BASO % 1.3 % (0-2.0); EOS % 4.9 % (0-4.5); HEMATOCRIT 27.8 % (35.4-49); HEMOGLOBIN 9.5 GM/dL (11.7-16.9); MCH 33.7 pg (25.7-33.7); MCHC 34.2 g/dl (32.0-35.9); MEAN CELL VOLUME 98.5 fl (80-96); MEAN PLT VOLUME 9.2 fl (7.5-11.1); MONO % 12.5 % (3.8-10.2); NEUT % 68.3 % (42.8-82.8); PLATELET COUNT 132 K/MM3 (134-434); RBC 2.82 M/mm3 (4.00-5.60); RDW 15.1 % (11.9-15.9); WHITE BLOOD COUNT 5.4 K/mm3 (4.0-10.0)
[2018-12-09] MEDS: SODIUM CHLORIDE 1,000 ML IV SCH (15:58)
[2018-12-09] MEDS: ACETAMINOPHEN 325 MG TABLET (FP) PO PRN (19:21)
[2018-12-09] MEDS: ROSUVASTATIN CA 10 MG TABLET (FP) PO SCH (21:44)
--- NOTE | 2018-12-09 22:12 | CONS ---
DATE OF CONSULTATION: DATE OF DICTATION: 12/09/2018 A 78-year-old gentleman with history of coronary artery disease, status post extensive myocardial infarction, status post PCI, status post coronary artery bypass grafting, end-stage renal disease hemodialysis dependent, history of severe left ventricular systolic dysfunction, peripheral arterial disease, history of gangrenous right foot, recent right femoropopliteal bypass, history of diabetes mellitus, aortic valvular disease with aortic insufficiency. Patient has been transferred to Telemetry. Denies any significant surgical pain. There is no history of chest pain or discomfort either at rest or with exertion. No dyspnea, paroxysmal nocturnal dyspnea, or orthopnea. No history of palpitations, lightheadedness, or dizziness. No history of cough or expectoration. MEDICATIONS: 1. Midodrine 5 mg p.o. daily. 2. Zofran 4 mg IV q.6 h p.r.n. 3. Tylenol 325 mg q.4 h p.r.n. 4. Amoxicillin 1 tablet p.o. b.i.d. 5. Bacitracin applied daily. 6. Tigan 300 mg p.o. t.i.d. p.r.n. 7. Carvedilol 3.125 mg p.o. daily. 8. Colace 100 mg p.o. b.i.d. 9. Aspirin 81 mg p.o. daily. 10. Procrit 10,000 units IV push. 11. Crestor 10 mg p.o. nightly. 12. Dilaudid 2 mg IV q.3 h p.r.n. 13. Oxycodone 5 mg q.4 h p.r.n. 14. PhosLo 657 mg p.o. t.i.d. 15. Renvela 800 mg p.o. b.i.d. with meals. 16. Plavix 75 mg p.o. daily. 17. Folic acid 1 mg p.o. daily. PHYSICAL EXAMINATION: General: A 78-year-old gentleman within no acute distress. No pallor, cyanosis, clubbing, or jaundice. Vital Signs: Blood pressure 93/49 mmHg at 1808, heart rate was 87 beats per minute and regular, respirations were 18 per minute, temperature is 98.4 degrees Fahrenheit. Weight was 77.564 kg. Neck: Supple. No jugular venous distention. Hepatojugular reflux is negative. Carotids were 2+. Upstrokes were normal. No bruits were heard. Heart: PMI within the 5th intercostal space. No heaves or thrills. S1, S2 were normal. Grade 1/6 ejection systolic murmur was heard at the 2nd right intercostal space, which ended in early systole. Unable to appreciate a diastolic murmur or gallop. Lungs: Clear on auscultation. Abdomen: Soft, nontender. No hepatosplenomegaly or palpable masses were felt. Extremities: No calf tenderness. Right foot was bandaged. There was 1+ right pretibial edema. LABORATORY DATA: CBC: WBC 5400, hemoglobin was 9.5 g/dL, hematocrit was 27.8%, platelet count was 132,000. Chemistries on December 09, 2018: Sodium 138, potassium 3.8, chloride 100, CO2 32 mmol/L, BUN 21.8, creatinine 5.2 mg. IMPRESSION: 1. Coronary artery disease, status post myocardial infarction, status post percutaneous coronary intervention/stenting, status post coronary artery bypass grafting. 2. Peripheral arterial disease, status post right femoropopliteal bypass. 3. Aortic valvular disease, aortic insufficiency. 4. Hypertension, hypertensive cardiovascular disease. 5. End-stage renal disease, dialysis dependent. 6. History of diabetes mellitus. Left ventricular diastolic dysfunction. 7. Dyslipidemia. 8. Anemia and thrombocytopenia, partly related to surgical intervention. 9. Chronic left bundle branch block. RECOMMENDATIONS: 1. Increase ambulation. 2. Continue current medication. 3. Check blood pressures supine and standing. 4. Follow up CBC. Prognosis is guarded. María [id number]
[2018-12-10] MEDS: FOLIC ACID 1 MG TABLET (FP) PO SCH ×3 (05:35→22:00)
[2018-12-10] MEDS: oxyCODONE HCL 5 MG TABLET PO PRN ×2 (05:35→12:22)
[2018-12-10] MEDS: ACETAMINOPHEN 325 MG TABLET (FP) PO PRN ×2 (05:36→12:21)
[2018-12-10 06:59] LABS: BASO % 0.9 % (0-2.0); EOS % 5.6 % (0-4.5); HEMATOCRIT 26.1 % (35.4-49); HEMOGLOBIN 8.8 GM/dL (11.7-16.9); LYMPH % 13.9 % (8-40); MCH 33.3 pg (25.7-33.7); MCHC 33.9 g/dl (32.0-35.9); MEAN CELL VOLUME 98.1 fl (80-96); MEAN PLT VOLUME 8.8 fl (7.5-11.1); MONO % 12.5 % (3.8-10.2); NEUT % 67.1 % (42.8-82.8); RBC 2.66 M/mm3 (4.00-5.60); RDW 15.6 % (11.9-15.9); WHITE BLOOD COUNT 5.7 K/mm3 (4.0-10.0)
[2018-12-10 07:48] LABS: PLATELET COUNT 124 K/MM3 (134-434)
[2018-12-10 07:49] LABS: ALBUMIN 2.4 g/dl (3.4-5.0); ALK PHOS 92 U/L (45-117); ANION GAP 7 MMOL/L (8-16); BILIRUBIN,TOTAL 0.9 mg/dL (0.2-1); BLOOD UREA NITROGEN 34.4 mg/dL (7-18); CALCIUM 8.6 mg/dL (8.5-10.1); CHLORIDE 99 mmol/L (98-107); CO2 30 mmol/L (21-32); CREATININE 7.2 mg/dL (0.55-1.3); GLUCOSE,RANDOM 108 mg/dL (74-106); POTASSIUM 4.3 mmol/L (3.5-5.1); SGOT/AST 20 U/L (15-37); SGPT/ALT < 6 U/L (13-61); SODIUM 136 mmol/L (136-145); TOT PROT 5.3 g/dl (6.4-8.2)
--- NOTE | 2018-12-10 09:10 | PN ---
Progress Note (short form) - Note Progress Note: POD#3, S/P R fem-pop bypass with in situ GSV. Patient seen and examined. no issues overnight, Reports he is feeling well. Ambulated the halls with PT yesterday without issue. States he has no significant pain in his RLE. Voiding well. Tolerating PO. Pain is controlled. Denies any CP, SOB, palpitations, N/V,D fever or chills. Vital Signs Temp 99 F 12/10/ 06:00 Pulse 99 H 12/10/18 06:00 Resp 18 12/10/18 06:00 BP 126/61 12/10/18 06:00 Pulse Ox 94 L 12/09/18 21:00 Intake & Output 12/09/18 12/09/18 12/10/18 11:59 23:59 11:59 Intake Total 240 990 250 Output Total 0 0 Balance 240 990 250 Weight 171 lb 3 oz 171 lb 173 lb Intake: IV 10 10 SALINE LOCK 10 10 Oral 240 980 240 Output: Urine 0 0 Void 0 0 Other: Voiding Method Diaper Incontinent Bowel Movement No No Height 6 ft Body Mass Index (BMI) 23.1 Weight Measurement Method Built in Bedscale Standing Scale CBC, BMP 12/10/18 06:15 12/10/18 06:15 PE: Gen: A&Ox3, NAD Resp: Unlabored on RA Lower Ext: Right LE Incision intact with ramez in place, scant oozing at just below the knee at suture line. No erythema, no purulent drainage expressed, no palpable hematoma or significant ecchymosis noted. Thigh soft, mildly TTP at groin crease-appropriate to status. LE compartments soft. L foot with approx 2.5x1.5cm ulceration at base of 2nd and 3rd toes, wound bed with minimal fibrinous exudate and serous drainage, pt with +ttp. Small dry ulcer at distal tip of great toe. No ttp no surrounding erythema. Vasc: 1+ dp, rechecked with doppler, triphasic dp signal, biphasic PT signal. A/P: 78 y/o M w/ PMHx ESRD on HD x 13 years (MWF) via LUE AVF, CAD s/p CABG/PCI , LV dysfunction/CHF, AAA, Hypertension, Hyperlipidemia, PVD now POD#3, S/P R fem-pop bypass with in situ GSV now w/ post op anemia. Low grade temps overnight (99F), tachy to low 100s. One episode of hypotension noted yesterday evening (systolic in mid 90s). H/H trending down, 8.8/26.1 today, no leukocytosis Wound stable, pulses intact 1) Plan to transfuse 1 unit PRBC tomorrow with dialysis- Dr Leon aware 2) Cardiology recommendations - Dr Nina- appreciated 3) OOB w/ PT and post op shoe 4) Strongly Encourage IS 5) Continue Aspirin and Plavix 6) Trend labs 7) continue local wound care - right foot message sent to Dr Marshall
[2018-12-10] MEDS: CALCIUM ACETATE 667 MG CAPSULE (FP) PO SCH ×3 (09:29→17:14)
[2018-12-10] MEDS: SEVELAMER CARBONATE 800 MG TAB (FP) PO SCH ×2 (09:29→17:14)
--- NOTE | 2018-12-10 11:12 | PN ---
Progress Note (short form) - Note Progress Note: No c/o VSS On HD Right leg serosanguinous drainage thigh. Foot warm Hgb drifting down- will transfuse 1 U RBC today Increase activity.
[2018-12-10] MEDS ORDERED: EPOETIN ALFA 10,000 UNIT/1 ML VIAL IVPUSH ONE (13:00)
[2018-12-10] MEDS ORDERED: SODIUM CHLORIDE 250 ML IV PRN (13:00)
[2018-12-10] MEDS: HYDROmorphone HCl 2 MG/ML VIAL IVPB PRN (13:26)
--- NOTE | 2018-12-10 13:28 | PN ---
Progress Note, Physician Chief Complaint: the patient seen and examined in his room while he is receiving hemodialysis. Mr. Gómez was admitted after a femoral popliteal bypass. the patient has end-stage kidney disease and is on hemodialysis. History of Present Illness: This is a 78-year-old male with history of ESRD, on hemodialysis 3 times a week at [facility] hemodialysis unit, who has history of coronary artery disease, status post CABG with LV dysfunction, abdominal aortic aneurysm, hyperlipidemia, hypertension, peripheral vascular disease with gangrene admitted for femoral-popliteal bypass surgery. Patient has some oozing of serosanguineous fluid through his surgical wound. His hemoglobin has dropped from admission. He denies any chest pain or shortness of breath. - Current Medication List Current Medications: Active Medications Acetaminophen (Tylenol -) 325 mg PO Q4H PRN PRN Reason: PAIN SCALE 1-5 Stop: 12/10/18 15:53 Last Admin: 12/10/18 12:21 Dose: 325 mg Amoxicillin/Clavulanate Potassium (Augmentin - 500mg Tablet) 1 tab PO BID [facility] Last Admin: 12/09/18 21:44 Dose: 1 tab Aspirin (Asa -) 162 mg PO DAILY [facility] Bacitracin (Bacitracin -) 1 applic TP DAILY [facility] Calcium Acetate (Phoslo -) 667 mg PO TIDCM [facility] Last Admin: 12/10/18 12:22 Dose: 667 mg Carvedilol (Coreg -) 3.125 mg PO DAILY [facility] Clopidogrel Bisulfate (Plavix -) 75 mg PO DAILY [facility] Docusate Sodium (Colace -) 100 mg PO BID [facility] Last Admin: 12/09/18 21:43 Dose: 100 mg Folic Acid (Folic Acid -) 1 mg PO TID [facility] Last Admin: 12/10/18 05:35 Dose: 1 mg Hydromorphone HCl (Dilaudid Vial -) 2 mg IVPB Q3H PRN PRN Reason: PAIN LEVEL 6-10 Midodrine (Proamatine -) 5 mg PO DAILY [facility] Ondansetron HCl (Zofran Injection) 4 mg IVPUSH Q6H PRN PRN Reason: NAUSEA AND/OR VOMITING Oxycodone HCl (Roxicodone -) 5 mg PO Q4H PRN PRN Reason: PAIN SCALE 1-5 Last Admin: 12/10/18 12:22 Dose: 5 mg Rosuvastatin Calcium (Crestor -) 10 mg PO HS [facility] Last Admin: 12/09/18 21:44 Dose: 10 mg Sevelamer Carbonate (Renvela -) 800 mg PO BIDWM [facility] Last Admin: 12/10/18 09:29 Dose: 800 mg Trimethobenzamide HCl (Tigan -) 300 mg PO TID PRN PRN Reason: NAUSEA - Objective Vital Signs: Vital Signs Temperature 99 F 12/10/18 06:00 Pulse Rate 99 H 12/10/18 06:00 Respiratory Rate 18 12/10/18 06:00 Blood Pressure 126/61 12/10/18 06:00 O2 Sat by Pulse Oximetry (%) 94 L 12/09/18 21:00 Constitutional: Yes: No Distress, Calm Eyes: Yes: Conjunctiva Clear HENT: Yes: Normocephalic Neck: Yes: Trachea Midline Cardiovascular: Yes: Pulse Irregular Respiratory: Yes: CTA Bilaterally Gastrointestinal: Yes: Normal Bowel Sounds, Soft Genitourinary: No: Bladder Distention, CVA Tenderness - Left, CVA Tenderness - Right Musculoskeletal: Yes: Back Pain Extremities: Yes: Delayed Capillary Refill Edema: Yes Edema: LLE: Trace, RLE: Trace Wound/Incision: Yes: Sutures Intact Neurological: Yes: Alert, Oriented Labs: CBC, BMP 12/10/18 06:15 12/10/18 06:15 Assessment/Plan This is a 78-year-old male with the ESRD admitted for femoral-popliteal bypass for gangrenous foot and compromised circulation. He had femoropopliteal bypass graft surgery The patient is receiving hemodialysis and is tolerating well. His hemoglobin has dropped and will be transfused 1 unit of PRBCs on dialysis. Postsurgical management per surgical department. We will follow the patient with you Thank you Klarissa Samayoa MD
--- NOTE | 2018-12-10 14:28 | PN ---
Progress Note (short form) - Note Progress Note: Patient is doing better, no SOB or chest discomfort, undergoing dialy and receiving a unit of blood. Active Medications Acetaminophen (Tylenol -) 325 mg PO Q4H PRN PRN Reason: PAIN SCALE 1-5 Stop: 12/10/18 15:53 Last Admin: 12/10/18 12:21 Dose: 325 mg Amoxicillin/Clavulanate Potassium (Augmentin - 500mg Tablet) 1 tab PO BID [facility] Last Admin: 12/09/18 21:44 Dose: 1 tab Aspirin (Asa -) 162 mg PO DAILY [facility] Bacitracin (Bacitracin -) 1 applic TP DAILY [facility] Calcium Acetate (Phoslo -) 667 mg PO TIDCM [facility] Last Admin: 12/10/18 12:22 Dose: 667 mg Carvedilol (Coreg -) 3.125 mg PO DAILY [facility] Clopidogrel Bisulfate (Plavix -) 75 mg PO DAILY [facility] Docusate Sodium (Colace -) 100 mg PO BID [facility] Last Admin: 12/09/18 21:43 Dose: 100 mg Folic Acid (Folic Acid -) 1 mg PO TID [facility] Last Admin: 12/10/18 05:35 Dose: 1 mg Hydromorphone HCl (Dilaudid Vial -) 2 mg IVPB Q3H PRN PRN Reason: PAIN LEVEL 6-10 Last Admin: 12/10/18 13:26 Dose: 2 mg Midodrine (Proamatine -) 5 mg PO DAILY [facility] Ondansetron HCl (Zofran Injection) 4 mg IVPUSH Q6H PRN PRN Reason: NAUSEA AND/OR VOMITING Oxycodone HCl (Roxicodone -) 5 mg PO Q4H PRN PRN Reason: PAIN SCALE 1-5 Last Admin: 12/10/18 12:22 Dose: 5 mg Rosuvastatin Calcium (Crestor -) 10 mg PO HS [facility] Last Admin: 12/09/18 21:44 Dose: 10 mg Sevelamer Carbonate (Renvela -) 800 mg PO BIDWM [facility] Last Admin: 12/10/18 09:29 Dose: 800 mg Trimethobenzamide HCl (Tigan -) 300 mg PO TID PRN PRN Reason: NAUSEA Last Vital Signs Temp Pulse Resp BP Pulse Ox 98.3 F 100 H 18 139/67 95 12/10/18 10:55 12/10/18 14:00 12/10/18 14:00 12/10/18 14:00 12/10/18 09:00 NECK: Supple, noJVD, carotids 2+, no bruits heard. HEART: PMI in the 5th ICS, no heaves or thrills S1 & S2 are normal, grade I/ GLENN at the right ICS , no gallops heard. LUNGS: Clear on auscultation. ABDOMEN: Soft, nontender, noorganomegaly or palpable masses. EXTREMITIES: NO calf tenderness, slight swelling of the RLL, oozing from the right upper median thigh(serosanguineous). Right foot is bandaged. CBC, BMP 12/10/18 06:15 12/10/18 06:15 IMPRESSION: 1. PAD, s/p Rt.femoral/popliteal bypass. 2. CAD,s/p [place], s/p CABG. 3. ESRD-HD. 4. Severe LV systolic dysfuntion. 5. H/o diabetes mellitus. 6. Anemia, partly related to surgical blood loss. PLAN: 1. Continue current cardiac therapy. 2. F/u CBC and diff. 3. BMP.
[2018-12-10] MEDS: DOCUSATE SODIUM 100 MG CAPSULE (FP) PO SCH ×2 (15:37→22:00)
[2018-12-10] MEDS: ASPIRIN 81 MG CHEWABLE TABLETS PO SCH (15:37)
[2018-12-10] MEDS: AMOX TR/POT CLAV 500MG/125MG TABLETS (FP) PO SCH ×2 (15:37→22:00)
[2018-12-10] MEDS: MIDODRINE HCL 5 MG TABLET PO SCH (15:37)
[2018-12-10] MEDS: CLOPIDOGREL BISULFATE 75 MG TABLET (FP) PO SCH (15:37)
[2018-12-10] MEDS: CARVEDILOL 3.125 MG TABLET (FP) PO SCH (15:39)
[2018-12-10] MEDS: BACITRACIN 15 GM TUBE TOPICAL OINTMENT TP SCH (15:44)
[2018-12-10 17:11] LABS: CREATININE 2.2 mg/dL (0.55-1.3)
--- NOTE | 2018-12-10 18:22 | PATH ---
Surgical Pathology Report Patient Name: FÉLIX ZUÑIGA Med. Rec. #: [id number] /Age/Gender: 1940 (Age: 78) / M Account: [id number] Location: 4 W TELEMETRY U Taken: 12/07/2018 Received: 12/08/2018 Reported: 12/10/2018 Physicians: Alfonso Marshall M.D. Specimen(s) Received PLAQUE RIGHT LOWER EXTREMITY VESSEL Clinical History Atherosclerosis right lower extremity Final Diagnosis PLAQUE RIGHT LOWER EXTREMITY VESSEL, REMOVAL: CONSISTENT WITH ATHEROSCLEROTIC PLAQUE. Electronically Signed Cristela Shirley M.D. Gross Description Received in formalin labeled "plaque right lower extremity vessel," is a 4.8 x 2.5 x 1.3 cm aggregate of multiple yellow orange portions of calcified plaque. Process Control Programmer sections are submitted in one cassette, following decalcification. /12/09/2018 saudi/12/09/2018
[2018-12-10] MEDS: ROSUVASTATIN CA 10 MG TABLET (FP) PO SCH (22:00)
[2018-12-11] MEDS: FOLIC ACID 1 MG TABLET (FP) PO SCH ×3 (06:02→21:37)
[2018-12-11 06:57] LABS: BASO % 0.7 % (0-2.0); EOS % 7.2 % (0-4.5); HEMATOCRIT 29.1 % (35.4-49); HEMOGLOBIN 9.8 GM/dL (11.7-16.9); LYMPH % 17.1 % (8-40); MCH 32.3 pg (25.7-33.7); MCHC 33.7 g/dl (32.0-35.9); MEAN CELL VOLUME 95.9 fl (80-96); MEAN PLT VOLUME 8.4 fl (7.5-11.1); MONO % 13.5 % (3.8-10.2); NEUT % 61.5 % (42.8-82.8); PLATELET COUNT 147 K/MM3 (134-434); RBC 3.04 M/mm3 (4.00-5.60); RDW 17.3 % (11.9-15.9); WHITE BLOOD COUNT 4.4 K/mm3 (4.0-10.0)
[2018-12-11 07:25] LABS: BLOOD UREA NITROGEN 17.7 mg/dL (7-18); CALCIUM 8.6 mg/dL (8.5-10.1); CREATININE 4.4 mg/dL (0.55-1.3); POTASSIUM 3.5 mmol/L (3.5-5.1)
[2018-12-11] MEDS: SEVELAMER CARBONATE 800 MG TAB (FP) PO SCH ×2 (07:53→17:28)
[2018-12-11] MEDS: CALCIUM ACETATE 667 MG CAPSULE (FP) PO SCH ×3 (07:54→17:27)
[2018-12-11] MEDS: MIDODRINE HCL 5 MG TABLET PO SCH (09:25)
[2018-12-11] MEDS: ASPIRIN 81 MG CHEWABLE TABLETS PO SCH (09:25)
[2018-12-11] MEDS: CARVEDILOL 3.125 MG TABLET (FP) PO SCH (09:25)
[2018-12-11] MEDS: CLOPIDOGREL BISULFATE 75 MG TABLET (FP) PO SCH (09:25)
[2018-12-11] MEDS: DOCUSATE SODIUM 100 MG CAPSULE (FP) PO SCH ×2 (09:25→21:37)
[2018-12-11] MEDS: AMOX TR/POT CLAV 500MG/125MG TABLETS (FP) PO SCH ×2 (09:28→21:37)
[2018-12-11] MEDS: BACITRACIN 15 GM TUBE TOPICAL OINTMENT TP SCH (09:28)
--- NOTE | 2018-12-11 13:20 | PN ---
Progress Note, Physician History of Present Illness: Pt seen and examined at bedside. He is awake and alert. He is ambulating with assistance. He tolerated HD yesterday. - Current Medication List Current Medications: Active Medications Amoxicillin/Clavulanate Potassium (Augmentin - 500mg Tablet) 1 tab PO BID [facility] Last Admin: 12/11/18 09:28 Dose: 1 tab Aspirin (Asa -) 162 mg PO DAILY [facility] Last Admin: 12/11/18 09:25 Dose: 162 mg Bacitracin (Bacitracin -) 1 applic TP DAILY [facility] Last Admin: 12/11/18 09:28 Dose: Not Given Calcium Acetate (Phoslo -) 667 mg PO TIDCM [facility] Last Admin: 12/11/18 12:00 Dose: 667 mg Carvedilol (Coreg -) 3.125 mg PO DAILY [facility] Last Admin: 12/11/18 09:25 Dose: 3.125 mg Clopidogrel Bisulfate (Plavix -) 75 mg PO DAILY [facility] Last Admin: 12/11/18 09:25 Dose: 75 mg Docusate Sodium (Colace -) 100 mg PO BID [facility] Last Admin: 12/11/18 09:25 Dose: 100 mg Folic Acid (Folic Acid -) 1 mg PO TID [facility] Last Admin: 12/11/18 06:02 Dose: 1 mg Hydromorphone HCl (Dilaudid Vial -) 2 mg IVPB Q3H PRN PRN Reason: PAIN LEVEL 6-10 Last Admin: 12/10/18 13:26 Dose: 2 mg Midodrine (Proamatine -) 5 mg PO DAILY [facility] Last Admin: 12/11/18 09:25 Dose: 5 mg Ondansetron HCl (Zofran Injection) 4 mg IVPUSH Q6H PRN PRN Reason: NAUSEA AND/OR VOMITING Oxycodone HCl (Roxicodone -) 5 mg PO Q4H PRN PRN Reason: PAIN SCALE 1-5 Last Admin: 12/10/18 12:22 Dose: 5 mg Rosuvastatin Calcium (Crestor -) 10 mg PO [facility] Last Admin: 12/10/18 22:00 Dose: 10 mg Sevelamer Carbonate (Renvela -) 800 mg PO BIDWM [facility] Last Admin: 12/11/18 07:53 Dose: 800 mg Trimethobenzamide HCl (Tigan -) 300 mg PO TID PRN PRN Reason: NAUSEA - Objective Vital Signs: Vital Signs Temperature 98.4 F 12/11/18 11:00 Pulse Rate 85 12/11/18 11:00 Respiratory Rate 18 12/11/18 11:00 Blood Pressure 115/58 L 12/11/18 11:00 O2 Sat by Pulse Oximetry (%) 98 12/11/18 09:00 Constitutional: Yes: Calm Eyes: Yes: Conjunctiva Clear HENT: Yes: Atraumatic Cardiovascular: Yes: S1, S2 Respiratory: Yes: CTA Bilaterally Gastrointestinal: Yes: Soft Genitourinary: Yes: WNL Edema: Yes Edema: LLE: Trace, RLE: Trace Integumentary: Yes: Venous Stasis Changes Wound/Incision: Yes: Dressing Dry and Intact Neurological: Yes: Oriented Labs: CBC, BMP 12/11/18 06:22 12/11/18 06:22 Assessment/Plan Current Medications Generic Name Dose Route Start Last Admin Trade Name Freq PRN Reason Stop Dose Admin Amoxicillin/Clavulanate Potassium 1 tab 12/09/18 22:00 12/11/18 09:28 Augmentin - 500mg Tablet PO 1 tab BID [facility] Administration Aspirin 162 mg 12/10/18 10:00 12/11/18 09:25 Asa - PO 162 mg DAILY [facility] Administration Bacitracin 1 applic 12/10/18 10:00 12/11/18 09:28 Bacitracin - TP Not Given DAILY [facility] Calcium Acetate 667 mg 12/09/18 17:30 12/11/18 12:00 Phoslo - PO 667 mg TIDCM [facility] Administration Carvedilol 3.125 mg 12/10/18 10:00 12/11/18 09:25 Coreg - PO 3.125 mg DAILY [facility] Administration Clopidogrel Bisulfate 75 mg 12/10/18 10:00 12/11/18 09:25 Plavix - PO 75 mg DAILY [facility] Administration Docusate Sodium 100 mg 12/09/18 22:00 12/11/18 09:25 Colace - PO 100 mg BID [facility] Administration Folic Acid 1 mg 12/09/18 22:00 12/11/18 06:02 Folic Acid - PO 1 mg TID [facility] Administration Hydromorphone HCl 2 mg 12/09/18 15:04 12/10/18 13:26 Dilaudid Vial - IVPB 2 mg Q3H PRN Administration PAIN LEVEL 6-10 Midodrine 5 mg 12/10/18 10:00 12/11/18 09:25 Proamatine - PO 5 mg DAILY [facility] Administration Ondansetron HCl 4 mg 12/09/18 15:04 Zofran Injection IVPUSH Q6H PRN NAUSEA AND/OR VOMITING Oxycodone HCl 5 mg 12/09/18 15:04 12/10/18 12:22 Roxicodone - PO 5 mg Q4H PRN Administration PAIN SCALE 1-5 Rosuvastatin Calcium 10 mg 12/09/18 22:00 12/10/18 22:00 Crestor - PO 10 mg HS [facility] Administration Sevelamer Carbonate 800 mg 12/09/18 17:30 12/11/18 07:53 Renvela - PO 800 mg BIDWM [facility] Administration Trimethobenzamide HCl 300 mg 12/09/18 15:04 Tigan - PO TID PRN NAUSEA #ESRD on HD #PVD s/p Right femoral popliteal bypass. #CAD #Hypertension #Orthostatic hypotension #Anemia #Thrombocytopenia Plan - pt tolerated HD yesterday - next HD on Thursday - cont wound care - monitor bp
[2018-12-11] MEDS: HYDROmorphone HCl 2 MG/ML VIAL IVPB PRN (15:11)
--- NOTE | 2018-12-11 15:39 | PN ---
Progress Note (short form) - Note Progress Note: Pain improved Moderate edema right leg and foot Wounds clean and dry Foot warm, pulses intact Hgb 9.8 Stable Increase activity Prob D/C Thursday
[2018-12-11] MEDS ORDERED: ACETAMINOPHEN 325 MG TABLET (FP) PO PRN (15:40)
[2018-12-11] MEDS: ROSUVASTATIN CA 10 MG TABLET (FP) PO SCH (21:37)
[2018-12-12] MEDS: FOLIC ACID 1 MG TABLET (FP) PO SCH ×3 (06:14→21:30)
[2018-12-12] MEDS: HYDROmorphone HCL 2 MG TABLET PO PRN ×3 (06:31→21:28)
[2018-12-12] MEDS: SEVELAMER CARBONATE 800 MG TAB (FP) PO SCH ×2 (08:04→17:00)
[2018-12-12] MEDS: CALCIUM ACETATE 667 MG CAPSULE (FP) PO SCH ×3 (08:04→17:00)
[2018-12-12] MEDS: CARVEDILOL 3.125 MG TABLET (FP) PO SCH (10:44)
[2018-12-12] MEDS: AMOX TR/POT CLAV 500MG/125MG TABLETS (FP) PO SCH ×2 (10:44→21:29)
[2018-12-12] MEDS: ASPIRIN 81 MG CHEWABLE TABLETS PO SCH (10:44)
[2018-12-12] MEDS: CLOPIDOGREL BISULFATE 75 MG TABLET (FP) PO SCH (10:44)
[2018-12-12] MEDS: DOCUSATE SODIUM 100 MG CAPSULE (FP) PO SCH ×2 (10:45→21:30)
[2018-12-12] MEDS: BACITRACIN 15 GM TUBE TOPICAL OINTMENT TP SCH (10:45)
[2018-12-12] MEDS: MIDODRINE HCL 5 MG TABLET PO SCH (10:45)
--- NOTE | 2018-12-12 15:00 | PN ---
Progress Note, Physician History of Present Illness: Pt seen and examined at bedside. He is awake and alert. He denies shortness of breath. - Current Medication List Current Medications: Active Medications Acetaminophen (Tylenol -) 650 mg PO Q4H PRN PRN Reason: PAIN LEVEL 1 - 3 Amoxicillin/Clavulanate Potassium (Augmentin - 500mg Tablet) 1 tab PO BID [facility] Last Admin: 12/12/18 10:44 Dose: 1 tab Aspirin (Asa -) 162 mg PO DAILY [facility] Last Admin: 12/12/18 10:44 Dose: 162 mg Bacitracin (Bacitracin -) 1 applic TP DAILY [facility] Last Admin: 12/12/18 10:45 Dose: 1 applic Calcium Acetate (Phoslo -) 667 mg PO TIDCM [facility] Last Admin: 12/12/18 11:34 Dose: 667 mg Carvedilol (Coreg -) 3.125 mg PO DAILY [facility] Last Admin: 12/12/18 10:44 Dose: 3.125 mg Clopidogrel Bisulfate (Plavix -) 75 mg PO DAILY [facility] Last Admin: 12/12/18 10:44 Dose: 75 mg Docusate Sodium (Colace -) 100 mg PO BID [facility] Last Admin: 12/12/18 10:45 Dose: 100 mg Folic Acid (Folic Acid -) 1 mg PO TID [facility] Last Admin: 12/12/18 13:16 Dose: 1 mg Hydromorphone HCl (Dilaudid -) 2 mg PO Q4H PRN PRN Reason: PAIN LEVEL 6-10 Last Admin: 12/12/18 06:31 Dose: 2 mg Midodrine (Proamatine -) 5 mg PO DAILY [facility] Last Admin: 12/12/18 10:45 Dose: 5 mg Ondansetron HCl (Zofran Injection) 4 mg IVPUSH Q6H PRN PRN Reason: NAUSEA AND/OR VOMITING Rosuvastatin Calcium (Crestor -) 10 mg PO HS [facility] Last Admin: 12/11/18 21:37 Dose: 10 mg Sevelamer Carbonate (Renvela -) 800 mg PO BIDWM [facility] Last Admin: 12/12/18 08:04 Dose: 800 mg Trimethobenzamide HCl (Tigan -) 300 mg PO TID PRN PRN Reason: NAUSEA - Objective Vital Signs: Vital Signs Temperature 98.3 F 12/12/18 10:00 Pulse Rate 90 12/12/18 10:00 Respiratory Rate 18 12/12/18 10:00 Blood Pressure 133/77 12/12/18 10:00 O2 Sat by Pulse Oximetry (%) 98 12/12/18 08:15 Constitutional: Yes: Calm Eyes: Yes: Conjunctiva Clear HENT: Yes: Atraumatic Neck: Yes: Supple Cardiovascular: Yes: S1, S2 Respiratory: Yes: CTA Bilaterally Gastrointestinal: Yes: Normal Bowel Sounds, Soft Genitourinary: Yes: WNL Edema: Yes Wound/Incision: Yes: Dressing Dry and Intact Neurological: Yes: Oriented Psychiatric: Yes: Oriented Labs: CBC, BMP 12/11/18 06:22 12/11/18 06:22 Problem List - Problems (1) S/P femoral-popliteal bypass surgery Code(s): Z95.828 - PRESENCE OF OTHER VASCULAR IMPLANTS AND GRAFTS (2) ESRD (end stage renal disease) Code(s): N18.6 - END STAGE RENAL DISEASE Assessment/Plan Current Medications Generic Name Dose Route Start Last Admin Trade Name Freq PRN Reason Stop Dose Admin Acetaminophen 650 mg 12/11/18 15:40 Tylenol - PO Q4H PRN PAIN LEVEL 1 - 3 Amoxicillin/Clavulanate Potassium 1 tab 12/09/18 22:00 12/12/18 10:44 Augmentin - 500mg Tablet PO 1 tab BID [facility] Administration Aspirin 162 mg 12/10/18 10:00 12/12/18 10:44 Asa - PO 162 mg DAILY [facility] Administration Bacitracin 1 applic 12/10/18 10:00 12/12/18 10:45 Bacitracin - TP 1 applic DAILY [facility] Administration Calcium Acetate 667 mg 12/09/18 17:30 12/12/18 11:34 Phoslo - PO 667 mg TIDCM [facility] Administration Carvedilol 3.125 mg 12/10/18 10:00 12/12/18 10:44 Coreg - PO 3.125 mg DAILY [facility] Administration Clopidogrel Bisulfate 75 mg 12/10/18 10:00 12/12/18 10:44 Plavix - PO 75 mg DAILY [facility] Administration Docusate Sodium 100 mg 12/09/18 22:00 12/12/18 10:45 Colace - PO 100 mg BID [facility] Administration Folic Acid 1 mg 12/09/18 22:00 12/12/18 13:16 Folic Acid - PO 1 mg TID [facility] Administration Hydromorphone HCl 2 mg 12/11/18 15:39 12/12/18 06:31 Dilaudid - PO 2 mg Q4H PRN Administration PAIN LEVEL 6-10 Midodrine 5 mg 12/10/18 10:00 12/12/18 10:45 Proamatine - PO 5 mg DAILY [facility] Administration Ondansetron HCl 4 mg 12/09/18 15:04 Zofran Injection IVPUSH Q6H PRN NAUSEA AND/OR VOMITING Rosuvastatin Calcium 10 mg 12/09/18 22:00 12/11/18 21:37 Crestor - PO 10 mg HS [facility] Administration Sevelamer Carbonate 800 mg 12/09/18 17:30 12/12/18 08:04 Renvela - PO 800 mg BIDWM [facility] Administration Trimethobenzamide HCl 300 mg 12/09/18 15:04 Tigan - PO TID PRN NAUSEA #ESRD on HD #PVD s/p Right femoral popliteal bypass. #CAD #Hypertension #Orthostatic hypotension #Anemia #Thrombocytopenia Plan - HD tomorrow - orders written - vascular input appreciated - cont wound care - monitor bp
[2018-12-12] MEDS: ROSUVASTATIN CA 10 MG TABLET (FP) PO SCH (21:29)
[2018-12-13] MEDS: FOLIC ACID 1 MG TABLET (FP) PO SCH (06:23)
--- NOTE | 2018-12-13 07:49 | PN ---
Progress Note (short form) - Note Progress Note: POD#6, S/P R fem-pop bypass with in situ GSV. Patient seen and examined on HD. No issues over the weekend. Received 1 unit pRBCs on Thursday w/ HD, reports feeling better since. Ambulated the halls with PT over the weekend multiple times without issue. States he has no significant pain in his RLE. Voiding well. Tolerating PO. Pain is controlled. Denies any CP , SOB, palpitations, N/V,D fever or chills. Vital Signs Temp 99.2 F 12/13/18 02:00 Pulse 89 12/13/18 05:40 Resp 20 12/13/18 05:40 BP 140/68 12/13/18 05:40 Pulse Ox 98 12/12/18 21:00 Intake & Output 12/12/18 12/12/18 12/13/18 11:59 23:59 11:59 Intake Total 200 800 Output Total 0 Balance 200 800 Weight 175 lb 6.4 oz 175 lb 12.8 oz Intake: IVPB 100 Oral 200 700 Output: Urine 0 Void 0 Other: Voiding Method Toilet Toilet Bowel Movement No Weight Measurement Method Standing Scale Standing Scale CBC, BMP 12/11/18 06:22 12/11/18 06:22 PE: Gen: A&Ox3, NAD Resp: Unlabored on RA Neck: R neck central line removed, site c/d/i. No hematoma no ttp. Lower Ext: Right LE Incision intact with ramez in place, no oozing noted. No erythema, no purulent drainage expressed, no palpable hematoma or significant ecchymosis noted. Thigh soft, mildly TTP at groin crease-appropriate to status. LE compartments soft. R foot with approx 2.5x1.5cm ulceration at base of 2nd and 3rd toes, wound bed with fibrinous exudate and serous drainage, pt with + ttp. Small dry ulcer at distal tip of great toe. No ttp no surrounding erythema. L foot with no ulcerations. B/L feet warm, well perfused. Vasc: 1+ dp R foot. A/P: 78 y/o M w/ PMHx ESRD on HD x 13 years (MWF) via LUE AVF, CAD s/p CABG/PCI , LV dysfunction/CHF, AAA, Hypertension, Hyperlipidemia, PVD now POD#6, S/P R fem-pop bypass with in situ GSV c/b post op anemia s/p 1 unit pRBCs on 12/10. Low grade temps overnight (99F), remainder of VSS. H/H stable Wound stable, pulses intact plan for d/c today. D/c instructions reviewed w/ pt who verbalized understanding VNS D/W ATTENDING DR LOPEZ
[2018-12-13] MEDS ORDERED: SODIUM CHLORIDE 250 ML IV PRN ×2 (08:05→08:06)
[2018-12-13] MEDS ORDERED: EPOETIN ALFA 2,000 UNIT/1 ML VIAL IVPUSH ONE (08:15)
[2018-12-13] MEDS: CALCIUM ACETATE 667 MG CAPSULE (FP) PO SCH ×2 (08:30→12:00)
[2018-12-13] MEDS: SEVELAMER CARBONATE 800 MG TAB (FP) PO SCH (08:30)
[2018-12-13 09:02] VITALS: TEMP 98
--- NOTE | 2018-12-13 10:11 | PN ---
Progress Note (short form) - Note Progress Note: Patient undergoing dialysis, minimal incisional pain. no SOB or chest pain. discharge is being planned. Active Medications Acetaminophen (Tylenol -) 650 mg PO Q4H PRN PRN Reason: PAIN LEVEL 1 - 3 Last Admin: 12/13/18 06:23 Dose: 650 mg Amoxicillin/Clavulanate Potassium (Augmentin - 500mg Tablet) 1 tab PO BID [facility] Last Admin: 12/12/18 21:29 Dose: 1 tab Aspirin (Asa -) 162 mg PO DAILY [facility] Last Admin: 12/12/18 10:44 Dose: 162 mg Bacitracin (Bacitracin -) 1 applic TP DAILY [facility] Last Admin: 12/12/18 10:45 Dose: 1 applic Calcium Acetate (Phoslo -) 667 mg PO TIDCM [facility] Last Admin: 12/13/18 08:30 Dose: Not Given Carvedilol (Coreg -) 3.125 mg PO DAILY [facility] Last Admin: 12/12/18 10:44 Dose: 3.125 mg Clopidogrel Bisulfate (Plavix -) 75 mg PO DAILY [facility] Last Admin: 12/12/18 10:44 Dose: 75 mg Docusate Sodium (Colace -) 100 mg PO BID [facility] Last Admin: 12/12/18 21:30 Dose: 100 mg Folic Acid (Folic Acid -) 1 mg PO TID [facility] Last Admin: 12/13/18 06:23 Dose: 1 mg Hydromorphone HCl (Dilaudid -) 2 mg PO Q4H PRN PRN Reason: PAIN LEVEL 6-10 Last Admin: 12/12/18 21:28 Dose: 2 mg Midodrine (Proamatine -) 5 mg PO DAILY [facility] Last Admin: 12/12/18 10:45 Dose: 5 mg Ondansetron HCl (Zofran Injection) 4 mg IVPUSH Q6H PRN PRN Reason: NAUSEA AND/OR VOMITING Rosuvastatin Calcium (Crestor -) 10 mg PO HS [facility] Last Admin: 12/12/18 21:29 Dose: 10 mg Sevelamer Carbonate (Renvela -) 800 mg PO BIDWM [facility] Last Admin: 12/13/18 08:30 Dose: Not Given Trimethobenzamide HCl (Tigan -) 300 mg PO TID PRN PRN Reason: NAUSEA 78 year male in nodistress, mild pallor, no cyanosis, clubbing or jaundice. Last Vital Signs Temp Pulse Resp BP Pulse Ox 98 F 93 H 18 133/77 98 12/13/18 07:15 12/13/18 09:50 12/13/18 09:50 12/13/18 09:50 12/12/18 21:00 NECK: Supple, noJVD, carotids 2+, no bruits heard. HEART: PMI in the 5th ICS, no heaves or thrills S1 & S2 are normal, grade I/ GLENN at the right ICS , no gallops heard. LUNGS: Clear on auscultation. ABDOMEN: Soft, nontender, noorganomegaly or palpable masses. EXTREMITIES: NO calf tenderness, slight swelling of the RLL, oozing from the right upper median thigh(serosanguineous). Right foot is bandaged. CBC, BMP 12/11/18 06:22 12/11/18 06:22 IMPRESSION: 1. PAD, s/p Rt.femoral/popliteal bypass. 2. CAD,s/p SC, s/p CABG. 3. ESRD-HD. 4. Severe LV systolic dysfuntion. 5. H/o diabetes mellitus. 6. Anemia, partly related to surgical blood loss. PLAN: 1. Continue current cardiac therapy. 2. Outpatient followup.
[2018-12-13 11:38] VITALS: BP 129/72; PULSE 88
[2018-12-13] MEDS: AMOX TR/POT CLAV 500MG/125MG TABLETS (FP) PO SCH (11:59)
[2018-12-13] MEDS: ASPIRIN 81 MG CHEWABLE TABLETS PO SCH (11:59)
[2018-12-13] MEDS: CARVEDILOL 3.125 MG TABLET (FP) PO SCH (12:00)
[2018-12-13] MEDS: CLOPIDOGREL BISULFATE 75 MG TABLET (FP) PO SCH (12:00)
[2018-12-13] MEDS: DOCUSATE SODIUM 100 MG CAPSULE (FP) PO SCH (12:01)
[2018-12-13] MEDS: MIDODRINE HCL 5 MG TABLET PO SCH (12:01)
--- NOTE | 2018-12-13 14:33 | DS ---
Physical Exam: SUBJECTIVE: Patient seen and examined on HD. No issues over the weekend. Received 1 unit pRBCs on Thursday w/ HD, reports feeling better since. Ambulated the halls with PT over the weekend multiple times without issue. States he has no significant pain in his RLE. Voiding well. Tolerating PO. Pain is controlled. Denies any CP, SOB, palpitations, N/V,D fever or chills. OBJECTIVE: Vital Signs Temperature 98 F 12/13/18 10:00 Pulse Rate 88 12/13/18 11:30 Respiratory Rate 18 12/13/18 11:30 Blood Pressure 129/72 12/13/18 11:30 O2 Sat by Pulse Oximetry (%) 100 12/13/18 09:00 PHYSICAL EXAM PE: Gen: A&Ox3, NAD Resp: Unlabored on RA Neck: R neck central line removed, site c/d/i. No hematoma no ttp. Lower Ext: Right LE Incision intact with ramez in place, no oozing noted. No erythema, no purulent drainage expressed, no palpable hematoma or significant ecchymosis noted. Thigh soft, mildly TTP at groin crease-appropriate to status. LE compartments soft. R foot with approx 2.5x1.5cm ulceration at base of 2nd and 3rd toes, wound bed with fibrinous exudate and serous drainage, pt with + ttp. Small dry ulcer at distal tip of great toe. No ttp no surrounding erythema. L foot with no ulcerations. B/L feet warm, well perfused. Vasc: 1+ dp R foot. LABS CBC,CMP WBC 4.4 K/mm3 (4.0-10.0) 12/11/18 06:22 RBC 3.04 M/mm3 (4.00-5.60) L 12/11/18 06:22 Hgb 9.8 GM/dL (11.7-16.9) L 12/11/18 06:22 Hct 29.1 % (35.4-49) L 12/11/18 06:22 MCV 95.9 fl (80-96) 12/11/18 06:22 MCH 32.3 pg (25.7-33.7) 12/11/18 06:22 MCHC 33.7 g/dl (32.0-35.9) 12/11/18 06:22 RDW 17.3 % (11.9-15.9) H 12/11/18 06:22 Plt Count 147 K/MM3 (134-434) 12/11/18 06:22 MPV 8.4 fl (7.5-11.1) 12/11/18 06:22 Absolute Neuts (auto) 2.7 K/mm3 (1.5-8.0) 12/11/18 06:22 Neutrophils % 61.5 % (42.8-82.8) 12/11/18 06:22 Lymphocytes % 17.1 % (8-40) D 12/11/18 06:22 Monocytes % 13.5 % (3.8-10.2) H 12/11/18 06:22 Eosinophils % 7.2 % (0-4.5) H 12/11/18 06:22 Basophils % 0.7 % (0-2.0) 12/11/18 06:22 Nucleated RBC % 0 % (0-0) 12/11/18 06:22 Manual Slide Review 12/07/18 13:50 Platelet Comment Slt plt clumping 12/07/18 13:50 Sodium 143 mmol/L (136-145) 12/11/18 06:22 Potassium 3.5 mmol/L (3.5-5.1) 12/11/18 06:22 Chloride 105 mmol/L (98-107) 12/11/18 06:22 Carbon Dioxide 31 mmol/L (21-32) 12/11/18 06:22 Anion Gap 7 MMOL/L (8-16) L 12/11/18 06:22 BUN 17.7 mg/dL (7-18) 12/11/18 06:22 Creatinine 4.4 mg/dL (0.55-1.3) H 12/11/18 06:22 Est GFR (CKD-EPI)AfAm 14.07 12/11/18 06:22 Est GFR (CKD-EPI)NonAf 12.14 12/11/18 06:22 POC Glucometer 103 UNITS (80-120) 12/11/18 05:47 Random Glucose 99 mg/dL (74-106) 12/11/18 06:22 Calcium 8.6 mg/dL (8.5-10.1) 12/11/18 06:22 Phosphorus 2.0 mg/dL (2.5-4.9) L 12/10/18 15:00 Total Bilirubin 0.9 mg/dL (0.2-1) 12/10/18 06:15 AST 20 U/L (15-37) 12/10/18 06:15 ALT < 6 U/L (13-61) L 12/10/18 06:15 Alkaline Phosphatase 92 U/L (45-117) 12/10/18 06:15 Creatine Kinase 106 U/L (26-308) 12/07/18 21:00 Troponin I 0.06 ng/ml (0.00-0.05) H 12/07/18 21:00 Total Protein 5.3 g/dl (6.4-8.2) L 12/10/18 06:15 Albumin 2.4 g/dl (3.4-5.0) L 12/10/18 06:15 HOSPITAL COURSE: Date of Admission:12/07/18 Date of Discharge: 12/13/18 The patient was admitted to the Med-Surg Unit after an elective repair of his peripheral vascular disease. Now, s/p RLE femoral-popliteal bypass with in-situ GSV. The patient was initially monitored in ICU. Cardiology and Nephrology were consulted and recommendations were followed. The patient was continued on his dialysis schedule. Narcotic and non-narcotic pain management control was achieved with an oral and IV approach. The patient's outpatient Augmentin was continued throughout the admission, local wound care was done with Bacitracin ointment. POD 2, the patient was transferred to the floor and ambulated the halls with physical therapy. POD3 the patient was noted to have post operative anemia and was transfused 1 unit of pRBCs. Post transfusion h/h remained stable. DVT prophylaxis was achieved with SCDs and early ambulation. VNS was arranged for wound care. Narcotic scripts were checked with [employer] [employer] prior to e- scribe. The discharge instructions and an oral pain management plan were reviewed with the patient. All questions answered. Above plan discussed with Dr. Marshall and agreed. Minutes to complete discharge: 25
== END 2018-12-13 12:41 | disposition home or self-care (01) | DRG 252 ==
LOC: JSAMEDAYSX 06:12 → JICU 15:25 → J4W 12-09 14:59
PROVIDERS: ADMIT Surgery; ATTEND Surgery
PROC: 041 Lower Arteries, Bypass (ICD-10-PCS; 2018-12-07)
PROC: 04CK0Z6 (ICD-10-PCS; 2018-12-07)
PROC: 061P0ZY Bypass Right Saphenous Vein to Lower Vein, Open Approach (ICD-10-PCS; principal; 2018-12-07 08:00)
PROC: 30233N1 Transfusion of Nonautologous Red Blood Cells into Peripheral Vein, Percutaneous Approach (ICD-10-PCS; 2018-12-10)
PROC: 5A1D70Z Performance of Urinary Filtration, Intermittent, Less than 6 Hours Per Day (ICD-10-PCS; 2018-12-13)
DX: E11.52 Type 2 diabetes mellitus with diabetic peripheral angiopathy with gangrene (principal); N18.6 End stage renal disease; D62 Acute posthemorrhagic anemia; I12.0 Hypertensive chronic kidney disease with stage 5 chronic kidney disease or end stage renal disease; D69.6 Thrombocytopenia, unspecified; I25.10 Atherosclerotic heart disease of native coronary artery without angina pectoris; I95.9 Hypotension, unspecified; Z95.1 Presence of aortocoronary bypass graft; E11.22 Type 2 diabetes mellitus with diabetic chronic kidney disease; Z99.2 Dependence on renal dialysis; E78.5 Hyperlipidemia, unspecified; I35.1 Nonrheumatic aortic (valve) insufficiency; Z98.61 Coronary angioplasty status
CPT/HCPCS: 36415; 36430; 36511; 71045-TC-FY; 80048; 80053; 82550; 82565; 82962; 84100; 84132; 84484; 84520; 85025; 85027; 86803; 86850; 86900; 86901; 86922; 87340; 88304-TC; 93005; 93010; 94760; 97116-GP; 97161-GP; J0885; J1644; J7030; P9038; P9058

== ENCOUNTER 2022-12-24 17:45 | Inpatient (IN) | payer BC ==
[2022-12-24] MEDS ORDERED: SODIUM CHLORIDE 0.9% 500 ML INFUS.BAG IV ONE (18:50)
[2022-12-24] MEDS ORDERED: ONDANSETRON *ODT* 4 MG TABLET SL ONE (18:52)
[2022-12-24] MEDS ORDERED: ONDANSETRON *ODT* 4 MG TABLET ONE (19:32)
[2022-12-24 19:55] LABS: BASO % 0.6 % (0-2.0); EOS % 1.3 % (0-4.5); HEMATOCRIT 40.2 % (35.4-49); HEMOGLOBIN 13.6 GM/dL (11.7-16.9); LYMPH % 10.3 % (8-40); MCH 33.7 pg (25.7-33.7); MCHC 33.8 g/dl (32.0-35.9); MEAN CELL VOLUME 99.8 fl (80-96); MEAN PLT VOLUME 9.8 fl (7.5-11.1); MONO % 9.5 % (3.8-10.2); NEUT % 78.3 % (42.8-82.8); PLATELET COUNT 191 10^3/uL (134-434); RBC 4.03 M/mm3 (4.00-5.60); RDW 16.9 % (11.9-15.9); WHITE BLOOD COUNT 9.5 K/mm3 (4.0-10.0)
[2022-12-24 20:04] LABS: INR 1.05 (0.83-1.09); PROTHROMBIN TIME (PATIENT) 12.2 SEC (9.7-13.0)
[2022-12-24 20:23] LABS: POTASSIUM 4.2 mmol/L (3.5-5.1)
[2022-12-24 20:25] LABS: BLOOD UREA NITROGEN 16.3 mg/dL (7-18); CALCIUM 8.4 mg/dL (8.5-10.1); MAGNESIUM 2.2 mg/dL (1.8-2.4)
[2022-12-24 20:28] LABS: PHOSPHOROUS 4.8 mg/dL (2.5-4.9)
[2022-12-24 20:30] LABS: BILIRUBIN,TOTAL 0.4 mg/dL (0.2-1); TOT PROT 5.1 g/dl (6.4-8.2)
[2022-12-24] MEDS ORDERED: MIDODRINE HCL 5 MG TABLET PO ONE (20:32)
[2022-12-24] MEDS ORDERED: HEPARIN NA (PORCINE) 5,000 UNITS/ML 1ML VIAL ONE (22:09)
[2022-12-24] MEDS: HEPARIN NA (PORCINE) 5,000 UNITS/ML 1ML VIAL SQ SCH (22:21)
[2022-12-25] MEDS: HEPARIN NA (PORCINE) 5,000 UNITS/ML 1ML VIAL SQ SCH ×3 (05:37→22:57)
[2022-12-25 07:52] LABS: HEMATOCRIT 40.1 % (35.4-49); HEMOGLOBIN 13.1 GM/dL (11.7-16.9); MCH 33.2 pg (25.7-33.7); MCHC 32.7 g/dl (32.0-35.9); MEAN CELL VOLUME 101.7 fl (80-96); MEAN PLT VOLUME 10.4 fl (7.5-11.1); PLATELET COUNT 165 10^3/uL (134-434); RBC 3.95 M/mm3 (4.00-5.60); RDW 16.9 % (11.9-15.9); WHITE BLOOD COUNT 8.6 K/mm3 (4.0-10.0)
[2022-12-25 08:14] LABS: POTASSIUM 4.2 mmol/L (3.5-5.1)
[2022-12-25] MEDS ORDERED: SODIUM CHLORIDE 250 ML IV STA (08:21)
[2022-12-25 08:27] LABS: ALBUMIN 1.9 g/dl (3.4-5.0); BLOOD UREA NITROGEN 17.7 mg/dL (7-18); CALCIUM 8.4 mg/dL (8.5-10.1); MAGNESIUM 2.3 mg/dL (1.8-2.4)
[2022-12-25 08:31] LABS: PHOSPHOROUS 4.9 mg/dL (2.5-4.9)
[2022-12-25 08:32] LABS: BILIRUBIN,TOTAL 0.3 mg/dL (0.2-1); CREATININE 6.4 mg/dL (0.55-1.3); TOT PROT 4.8 g/dl (6.4-8.2)
[2022-12-25] MEDS: CALCIUM ACETATE 667 MG CAPSULE (FP) PO SCH ×3 (09:08→16:55)
[2022-12-25] MEDS: SEVELAMER CARBONATE 800 MG TAB (FP) PO SCH ×3 (09:08→16:55)
[2022-12-25] MEDS ORDERED: SODIUM CHLORIDE 250 ML IV PRN (09:20)
[2022-12-25] MEDS: MIDODRINE HCL 5 MG TABLET PO SCH ×3 (09:29→17:00)
[2022-12-25] MEDS ORDERED: HEPARIN NA (PORCINE) 5,000 UNITS/ML 1ML VIAL IVPUSH ONE (09:30)
[2022-12-25] MEDS: ALBUMIN HUMAN 25% 12.5 GM/50 ML VIAL IV SCH ×4 (09:35→11:35)
[2022-12-25] MEDS ORDERED: MIDODRINE HCL 5 MG TABLET PO SCH (10:00)
[2022-12-25] MEDS ORDERED: DOCUSATE SODIUM 100 MG CAPSULE (FP) PO SCH (10:00)
[2022-12-25] MEDS ORDERED: ACETAMINOPHEN 1000 MG/100 ML BAG IVPB ONE (10:09)
[2022-12-25] MEDS: LIDOCAINE 5% TOPICAL PATCH TP SCH (10:19)
[2022-12-25] MEDS ORDERED: traMADol HCL 50 MG TABLET PO ONE (11:00)
[2022-12-25] MEDS: ASPIRIN 81 MG CHEWABLE TABLETS PO SCH (13:48)
[2022-12-25] MEDS: FAMOTIDINE 20 MG TABLET PO SCH (13:48)
[2022-12-25 14:34] VITALS: BMI 19.6
[2022-12-25] MEDS ORDERED: MIDODRINE HCL 5 MG TABLET PO ONE (18:50)
[2022-12-25] MEDS: ROSUVASTATIN CA 20 MG TABLET PO SCH (22:57)
[2022-12-25] MEDS: LIDOCAINE PATCH REMOVAL MC SCH (23:01)
[2022-12-26] MEDS: HEPARIN NA (PORCINE) 5,000 UNITS/ML 1ML VIAL SQ SCH ×3 (06:34→21:54)
[2022-12-26] MEDS ORDERED: ACETAMINOPHEN 1000 MG/100 ML BAG IVPB PRN (06:54)
[2022-12-26] MEDS: MIDODRINE HCL 5 MG TABLET PO SCH ×3 (08:46→17:38)
[2022-12-26] MEDS: CALCIUM ACETATE 667 MG CAPSULE (FP) PO SCH ×3 (08:46→17:38)
[2022-12-26] MEDS: SEVELAMER CARBONATE 800 MG TAB (FP) PO SCH ×3 (08:46→17:38)
[2022-12-26 08:58] LABS: BASO % 0.3 % (0-2.0); EOS % 0.5 % (0-4.5); HEMATOCRIT 32.8 % (35.4-49); HEMOGLOBIN 11.1 GM/dL (11.7-16.9); LYMPH % 5.9 % (8-40); MCH 33.9 pg (25.7-33.7); MCHC 33.7 g/dl (32.0-35.9); MEAN CELL VOLUME 100.4 fl (80-96); MEAN PLT VOLUME 10.9 fl (7.5-11.1); MONO % 8.7 % (3.8-10.2); NEUT % 84.6 % (42.8-82.8); PLATELET COUNT 146 10^3/uL (134-434); RBC 3.26 M/mm3 (4.00-5.60); RDW 16.7 % (11.9-15.9); WHITE BLOOD COUNT 9.9 K/mm3 (4.0-10.0)
[2022-12-26 09:11] LABS: POTASSIUM 3.8 mmol/L (3.5-5.1)
[2022-12-26 09:14] LABS: BLOOD UREA NITROGEN 7.8 mg/dL (7-18); CALCIUM 8.6 mg/dL (8.5-10.1); MAGNESIUM 1.9 mg/dL (1.8-2.4)
[2022-12-26 09:15] LABS: ALBUMIN 2.2 g/dl (3.4-5.0)
[2022-12-26 09:18] LABS: CREATININE 3.6 mg/dL (0.55-1.3)
[2022-12-26 09:19] LABS: BILIRUBIN,TOTAL 0.5 mg/dL (0.2-1); PHOSPHOROUS 2.1 mg/dL (2.5-4.9); TOT PROT 4.4 g/dl (6.4-8.2)
[2022-12-26] MEDS ORDERED: MIDODRINE HCL 5 MG TABLET PO ONE (11:11)
[2022-12-26] MEDS ORDERED: SODIUM CHLORIDE 250 ML IV PRN (11:20)
[2022-12-26] MEDS ORDERED: HEPARIN NA (PORCINE) 5,000 UNITS/ML 1ML VIAL IVPUSH ONE (12:00)
[2022-12-26] MEDS: VITAMIN B COMP W-C 1 EA TABLET (NEPHRO-VITE) PO SCH (13:19)
[2022-12-26] MEDS: FAMOTIDINE 20 MG TABLET PO SCH (13:19)
[2022-12-26] MEDS: ASPIRIN 81 MG CHEWABLE TABLETS PO SCH (13:19)
[2022-12-26] MEDS: LIDOCAINE 5% TOPICAL PATCH TP SCH (13:20)
[2022-12-26] MEDS ORDERED: MIDODRINE HCL 5 MG TABLET PO SCH (14:00)
[2022-12-26] MEDS: ROSUVASTATIN CA 20 MG TABLET PO SCH (21:54)
[2022-12-26] MEDS: LIDOCAINE PATCH REMOVAL MC SCH (21:58)
[2022-12-27] MEDS: HEPARIN NA (PORCINE) 5,000 UNITS/ML 1ML VIAL SQ SCH ×3 (06:04→21:32)
[2022-12-27 07:51] LABS: BASO % 0.4 % (0-2.0); EOS % 1.3 % (0-4.5); HEMATOCRIT 31.7 % (35.4-49); HEMOGLOBIN 10.7 GM/dL (11.7-16.9); LYMPH % 7.6 % (8-40); MCHC 33.7 g/dl (32.0-35.9); MEAN CELL VOLUME 100.9 fl (80-96); MEAN PLT VOLUME 10.5 fl (7.5-11.1); MONO % 7.6 % (3.8-10.2); NEUT % 83.1 % (42.8-82.8); PLATELET COUNT 136 10^3/uL (134-434); RBC 3.14 M/mm3 (4.00-5.60); RDW 16.9 % (11.9-15.9); WHITE BLOOD COUNT 8.7 K/mm3 (4.0-10.0)
[2022-12-27 08:11] LABS: POTASSIUM 3.7 mmol/L (3.5-5.1)
[2022-12-27 08:15] LABS: CALCIUM 8.9 mg/dL (8.5-10.1)
[2022-12-27 08:16] LABS: ALBUMIN 2.2 g/dl (3.4-5.0); BLOOD UREA NITROGEN 7.3 mg/dL (7-18); MAGNESIUM 1.9 mg/dL (1.8-2.4)
[2022-12-27 08:19] LABS: CREATININE 2.4 mg/dL (0.55-1.3)
[2022-12-27 08:21] LABS: BILIRUBIN,TOTAL 0.8 mg/dL (0.2-1); TOT PROT 4.4 g/dl (6.4-8.2)
[2022-12-27 08:23] LABS: PHOSPHOROUS 1.2 mg/dL (2.5-4.9)
[2022-12-27] MEDS: ASPIRIN 81 MG CHEWABLE TABLETS PO SCH (10:06)
[2022-12-27] MEDS: CALCIUM ACETATE 667 MG CAPSULE (FP) PO SCH ×3 (10:06→17:54)
[2022-12-27] MEDS: VITAMIN B COMP W-C 1 EA TABLET (NEPHRO-VITE) PO SCH (10:06)
[2022-12-27] MEDS: FAMOTIDINE 20 MG TABLET PO SCH (10:06)
[2022-12-27] MEDS: MIDODRINE HCL 5 MG TABLET PO SCH ×3 (10:06→17:54)
[2022-12-27] MEDS: SEVELAMER CARBONATE 800 MG TAB (FP) PO SCH ×3 (10:06→17:54)
[2022-12-27] MEDS: LIDOCAINE 5% TOPICAL PATCH TP SCH (10:07)
[2022-12-27] MEDS: LIDOCAINE PATCH REMOVAL MC SCH (21:33)
[2022-12-27] MEDS: ROSUVASTATIN CA 20 MG TABLET PO SCH (21:33)
[2022-12-28] MEDS: ACETAMINOPHEN 325 MG TABLET (FP) PO PRN ×3 (05:00→22:19)
[2022-12-28] MEDS: HEPARIN NA (PORCINE) 5,000 UNITS/ML 1ML VIAL SQ SCH ×3 (05:01→22:19)
[2022-12-28] MEDS: CALCIUM ACETATE 667 MG CAPSULE (FP) PO SCH ×3 (09:34→17:23)
[2022-12-28] MEDS: SEVELAMER CARBONATE 800 MG TAB (FP) PO SCH ×3 (09:34→17:23)
[2022-12-28] MEDS: LIDOCAINE 5% TOPICAL PATCH TP SCH (09:34)
[2022-12-28] MEDS: FAMOTIDINE 20 MG TABLET PO SCH (09:34)
[2022-12-28] MEDS: ASPIRIN 81 MG CHEWABLE TABLETS PO SCH (09:34)
[2022-12-28] MEDS: VITAMIN B COMP W-C 1 EA TABLET (NEPHRO-VITE) PO SCH (09:34)
[2022-12-28] MEDS: MIDODRINE HCL 5 MG TABLET PO SCH ×3 (09:34→17:23)
[2022-12-28] MEDS ORDERED: CARVEDILOL 3.125 MG TABLET (FP) PO SCH (10:00)
[2022-12-28] MEDS: CARVEDILOL 3.125 MG TABLET (FP) PO SCH ×2 (10:39→22:24)
[2022-12-28] MEDS: traMADol HCL 50 MG TABLET PO PRN (10:39)
[2022-12-28] MEDS: VANCOMYCIN ORAL SOLUTION 125 MG/2.5 ML PO SCH ×3 (12:15→23:01)
[2022-12-28] MEDS: ROSUVASTATIN CA 20 MG TABLET PO SCH (22:19)
[2022-12-28] MEDS: LIDOCAINE PATCH REMOVAL MC SCH (22:25)
[2022-12-29] MEDS: ACETAMINOPHEN 325 MG TABLET (FP) PO PRN (05:40)
[2022-12-29] MEDS: VANCOMYCIN ORAL SOLUTION 125 MG/2.5 ML PO SCH ×3 (05:40→17:42)
[2022-12-29] MEDS: HEPARIN NA (PORCINE) 5,000 UNITS/ML 1ML VIAL SQ SCH ×3 (05:40→21:45)
[2022-12-29] MEDS: CALCIUM ACETATE 667 MG CAPSULE (FP) PO SCH (08:31)
[2022-12-29] MEDS: SEVELAMER CARBONATE 800 MG TAB (FP) PO SCH (08:31)
[2022-12-29 09:21] LABS: BASO % 0.8 % (0-2.0); EOS % 3.3 % (0-4.5); HEMATOCRIT 34.1 % (35.4-49); HEMOGLOBIN 11.4 GM/dL (11.7-16.9); MCH 33.8 pg (25.7-33.7); MCHC 33.6 g/dl (32.0-35.9); MEAN CELL VOLUME 100.7 fl (80-96); MEAN PLT VOLUME 10.7 fl (7.5-11.1); MONO % 12.7 % (3.8-10.2); NEUT % 75.2 % (42.8-82.8); PLATELET COUNT 154 10^3/uL (134-434); RBC 3.38 M/mm3 (4.00-5.60); RDW 16.4 % (11.9-15.9)
[2022-12-29] MEDS: FAMOTIDINE 20 MG TABLET PO SCH (09:31)
[2022-12-29] MEDS: MIDODRINE HCL 5 MG TABLET PO SCH ×3 (09:31→17:34)
[2022-12-29] MEDS: ASPIRIN 81 MG CHEWABLE TABLETS PO SCH (09:31)
[2022-12-29] MEDS: VITAMIN B COMP W-C 1 EA TABLET (NEPHRO-VITE) PO SCH (09:31)
[2022-12-29] MEDS: LIDOCAINE 5% TOPICAL PATCH TP SCH (09:32)
[2022-12-29] MEDS: CARVEDILOL 3.125 MG TABLET (FP) PO SCH ×2 (09:33→21:59)
[2022-12-29 09:54] LABS: CHLORIDE 101 mmol/L (98-107); POTASSIUM 5.4 mmol/L (3.5-5.1); SODIUM 139 mmol/L (136-145)
[2022-12-29 10:07] LABS: ALBUMIN 1.9 g/dl (3.4-5.0); ANION GAP 6 MMOL/L (8-16); BLOOD UREA NITROGEN 27.2 mg/dL (7-18); CO2 32 mmol/L (21-32); GLUCOSE,RANDOM 75 mg/dL (74-106)
[2022-12-29 10:08] LABS: MAGNESIUM 2.5 mg/dL (1.8-2.4)
[2022-12-29 10:10] LABS: CREATININE 4.9 mg/dL (0.55-1.3); SGOT/AST 27 U/L (15-37); SGPT/ALT 18 U/L (13-61)
[2022-12-29 10:11] LABS: BILIRUBIN,TOTAL 0.6 mg/dL (0.2-1); TOT PROT 4.5 g/dl (6.4-8.2)
[2022-12-29 10:19] LABS: ALK PHOS 241 U/L (45-117); PHOSPHOROUS 0.9 mg/dL (2.5-4.9)
[2022-12-29] MEDS ORDERED: SODIUM CHLORIDE 250 ML IV PRN (10:46)
[2022-12-29] MEDS ORDERED: SODIUM PHOSPHATE - 15 MM in DEXTROSE 5%-WATER - 250 ML IVPB ONE (12:00)
[2022-12-29] MEDS: traMADol HCL 50 MG TABLET PO PRN (15:48)
[2022-12-29 19:27] LABS: PHOSPHOROUS 0.5 mg/dL (2.5-4.9)
[2022-12-29] MEDS ORDERED: SODIUM PHOSPHATE - 30 MM in DEXTROSE 5%-WATER - 500 ML IVPB ONE (20:30)
[2022-12-29] MEDS: ROSUVASTATIN CA 20 MG TABLET PO SCH (21:45)
[2022-12-29] MEDS: LIDOCAINE PATCH REMOVAL MC SCH (21:45)
[2022-12-29] MEDS ORDERED: NAPH,MB-DB/K PH,MBDB POWDER PACKET PO SCH (22:00)
[2022-12-30] MEDS: VANCOMYCIN ORAL SOLUTION 125 MG/2.5 ML PO SCH ×4 (00:05→17:15)
[2022-12-30] MEDS: HEPARIN NA (PORCINE) 5,000 UNITS/ML 1ML VIAL SQ SCH ×2 (06:32→13:38)
[2022-12-30] MEDS: traMADol HCL 50 MG TABLET PO PRN (08:31)
[2022-12-30] MEDS: FAMOTIDINE 20 MG TABLET PO SCH (09:10)
[2022-12-30] MEDS: CARVEDILOL 3.125 MG TABLET (FP) PO SCH (09:11)
[2022-12-30] MEDS: VITAMIN B COMP W-C 1 EA TABLET (NEPHRO-VITE) PO SCH (09:11)
[2022-12-30] MEDS: MIDODRINE HCL 5 MG TABLET PO SCH ×3 (09:11→17:13)
[2022-12-30] MEDS: LIDOCAINE 5% TOPICAL PATCH TP SCH (09:11)
[2022-12-30] MEDS: ASPIRIN 81 MG CHEWABLE TABLETS PO SCH (09:11)
[2022-12-30 09:34] LABS: BASO % 0.5 % (0-2.0); EOS % 2.7 % (0-4.5); HEMATOCRIT 34.2 % (35.4-49); HEMOGLOBIN 11.5 GM/dL (11.7-16.9); LYMPH % 12.3 % (8-40); MCH 33.6 pg (25.7-33.7); MCHC 33.6 g/dl (32.0-35.9); MEAN CELL VOLUME 99.8 fl (80-96); MEAN PLT VOLUME 10.4 fl (7.5-11.1); MONO % 15.3 % (3.8-10.2); NEUT % 69.2 % (42.8-82.8); PLATELET COUNT 171 10^3/uL (134-434); RBC 3.42 M/mm3 (4.00-5.60); RDW 15.6 % (11.9-15.9); WHITE BLOOD COUNT 6.6 K/mm3 (4.0-10.0)
[2022-12-30 09:56] LABS: POTASSIUM 3.4 mmol/L (3.5-5.1)
[2022-12-30] MEDS ORDERED: LACTOBACILLUS ACIDOPHILUS 1 TABLET PO SCH (10:00)
[2022-12-30 10:01] LABS: ALBUMIN 1.9 g/dl (3.4-5.0)
[2022-12-30 10:02] LABS: BLOOD UREA NITROGEN 17.5 mg/dL (7-18); MAGNESIUM 1.9 mg/dL (1.8-2.4)
[2022-12-30 10:04] LABS: PHOSPHOROUS 2.8 mg/dL (2.5-4.9)
[2022-12-30 10:05] LABS: TOT PROT 4.5 g/dl (6.4-8.2)
[2022-12-30] MEDS ORDERED: SODIUM CHLORIDE 250 ML IV PRN (10:05)
[2022-12-30 10:08] LABS: BILIRUBIN,TOTAL 0.6 mg/dL (0.2-1)
[2022-12-30 10:14] LABS: CALCIUM 7.6 mg/dL (8.5-10.1)
[2022-12-30 18:44] VITALS: BP 99/48; PULSE 64; RESP 18; TEMP 98.5
== END 2022-12-30 20:33 | disposition home or self-care (01) | DRG 371 ==
LOC: JER 17:45 → JERBED 21:23 → OBSVTOIN 21:23 → J4S 12-25 00:46
PROVIDERS: ADMIT Internal Medicine; ATTEND Internal Medicine
PROC: 5A1D70Z Performance of Urinary Filtration, Intermittent, Less than 6 Hours Per Day (ICD-10-PCS; principal; 2022-12-25)
PROC: 5A1D70Z Performance of Urinary Filtration, Intermittent, Less than 6 Hours Per Day (ICD-10-PCS; 2022-12-26)
PROC: 5A1D70Z Performance of Urinary Filtration, Intermittent, Less than 6 Hours Per Day (ICD-10-PCS; 2022-12-29)
DX: A04.72 Enterocolitis due to Clostridium difficile, not specified as recurrent (principal); N18.6 End stage renal disease; I13.2 Hypertensive heart and chronic kidney disease with heart failure and with stage 5 chronic kidney disease, or end stage renal disease; I50.22 Chronic systolic (congestive) heart failure; I25.10 Atherosclerotic heart disease of native coronary artery without angina pectoris; E78.5 Hyperlipidemia, unspecified; Z99.2 Dependence on renal dialysis; I73.9 Peripheral vascular disease, unspecified; D63.1 Anemia in chronic kidney disease; I95.3 Hypotension of hemodialysis; D69.6 Thrombocytopenia, unspecified; E86.0 Dehydration; R42 Dizziness and giddiness; K76.0 Fatty (change of) liver, not elsewhere classified; M54.89 Other dorsalgia; I95.1 Orthostatic hypotension; E16.2 Hypoglycemia, unspecified; E83.39 Other disorders of phosphorus metabolism; Z95.5 Presence of coronary angioplasty implant and graft
CPT/HCPCS: 36415; 71045-TC-FY; 80053; 82962; 83735; 84100; 84484; 85025; 85027; 85610; 86803; 87045; 87046; 87209; 87324; 87328; 87340; 87449; 87798; 93005; 93010; 93306-TC; 97116-GP; 97161-GP; 99285-25; J1644; P9047; Q0162

== ENCOUNTER 2023-01-18 12:56 | Inpatient (IN) | payer BC ==
[2023-01-18 13:10] VITALS: BMI 16.7
[2023-01-18] MEDS ORDERED: SODIUM CHLORIDE 250 ML IV STA (13:16)
[2023-01-18] MEDS ORDERED: CLINDAMYCIN 600MG PREMIX IVPB 600 MG/50 ML BAG IVPB ONE ×2 (13:25→13:36)
[2023-01-18] MEDS ORDERED: VANCOMYCIN 1,000 MG in DEXTROSE 5%-WATER - 250 ML IVPB ONE (13:46)
[2023-01-18] MEDS ORDERED: PIPERACILLIN/TAZOB 2.25 GM 2.25 GM in DEXTROSE 5%-WATER - 50 ML IVPB ONE (13:47)
[2023-01-18 13:52] LABS: VENOUS BASE EXCESS -4.1 mmol/L (-2-2); VENOUS O2 SATURATION 24.7 % (70-80); VENOUS PH 7.369 (7.310-7.410)
[2023-01-18 13:54] LABS: BASO % 0.7 % (0-2.0); EOS % 0.8 % (0-4.5); HEMATOCRIT 40.9 % (35.4-49); HEMOGLOBIN 13.1 GM/dL (11.7-16.9); LYMPH % 8.9 % (8-40); MCHC 31.9 g/dl (32.0-35.9); MEAN CELL VOLUME 103.2 fl (80-96); MEAN PLT VOLUME 9.7 fl (7.5-11.1); MONO % 9.2 % (3.8-10.2); NEUT % 80.4 % (42.8-82.8); PLATELET COUNT 320 10^3/uL (134-434); RBC 3.97 M/mm3 (4.00-5.60); RDW 17.6 % (11.9-15.9); WHITE BLOOD COUNT 9.4 K/mm3 (4.0-10.0)
[2023-01-18] MEDS ORDERED: ACETAMINOPHEN 1000 MG/100 ML BAG IVPB ONE (13:58)
[2023-01-18 14:01] LABS: INR 1.1 (0.83-1.09); PROTHROMBIN TIME (PATIENT) 12.8 SEC (9.7-13.0)
[2023-01-18 14:04] LABS: ACTIVATED PTT 30.1 SECONDS (25.2-36.5)
[2023-01-18] MEDS ORDERED: ACETAMINOPHEN INJECTION 100 ML IVPB ONE (14:24)
[2023-01-18] MEDS ORDERED: PIPERACILLIN/TAZOB 2.25 GM 2.25 GM/50 ML BAG IVPB ONE (14:25)
[2023-01-18 14:27] LABS: LACTIC ACID 2.6 mmol/L (0.4-2.0)
[2023-01-18 14:33] LABS: CHLORIDE 107 mmol/L (98-107); POTASSIUM 4.5 mmol/L (3.5-5.1); SODIUM 141 mmol/L (136-145)
[2023-01-18 14:35] LABS: ANION GAP 15 MMOL/L (8-16); CALCIUM 8.7 mg/dL (8.5-10.1); CO2 19 mmol/L (21-32); GLUCOSE,RANDOM 98 mg/dL (74-106)
[2023-01-18 14:39] LABS: SGPT/ALT 29 U/L (13-61)
[2023-01-18 14:40] LABS: BILIRUBIN,TOTAL 0.4 mg/dL (0.2-1); TOT PROT 5.5 g/dl (6.4-8.2)
[2023-01-18 14:41] LABS: ALK PHOS 407 U/L (45-117)
[2023-01-18 14:46] LABS: SGOT/AST 59 U/L (15-37)
[2023-01-18] MEDS ORDERED: VANCOMYCIN/WATER FOR INJ (PEG) 1,000 MG/200 ML BAG IVPB ONE (14:54)
[2023-01-18] MEDS ORDERED: SODIUM CHLORIDE 1,000 ML IV SCH (18:45)
[2023-01-19] MEDS: VANCOMYCIN ORAL SOLUTION 125 MG/2.5 ML PO SCH ×3 (00:05→12:29)
[2023-01-19 06:45] LABS: BASO % 0.7 % (0-2.0); EOS % 2.5 % (0-4.5); HEMATOCRIT 33.8 % (35.4-49); HEMOGLOBIN 11.2 GM/dL (11.7-16.9); LYMPH % 11.1 % (8-40); MCH 34.1 pg (25.7-33.7); MCHC 33.3 g/dl (32.0-35.9); MEAN CELL VOLUME 102.5 fl (80-96); MEAN PLT VOLUME 9.4 fl (7.5-11.1); MONO % 11.6 % (3.8-10.2); NEUT % 74.1 % (42.8-82.8); PLATELET COUNT 200 10^3/uL (134-434); RDW 17.7 % (11.9-15.9); WHITE BLOOD COUNT 6.7 K/mm3 (4.0-10.0)
[2023-01-19 07:05] LABS: POTASSIUM 4.4 mmol/L (3.5-5.1)
[2023-01-19 07:07] LABS: BLOOD UREA NITROGEN 13.3 mg/dL (7-18); CALCIUM 8.3 mg/dL (8.5-10.1)
[2023-01-19 07:11] LABS: CREATININE 4.4 mg/dL (0.55-1.3)
[2023-01-19] MEDS ORDERED: ASPIRIN COATED 81 MG TABLET.EC ONE (08:38)
[2023-01-19] MEDS ORDERED: CARVEDILOL 3.125 MG TABLET (FP) ONE (08:38)
[2023-01-19] MEDS ORDERED: HEPARIN NA (PORCINE) 5,000 UNITS/ML 1ML VIAL ONE (08:39)
[2023-01-19] MEDS ORDERED: FAMOTIDINE 20 MG TABLET ONE (08:39)
[2023-01-19] MEDS ORDERED: MIDODRINE HCL 5 MG TABLET ONE (08:39)
[2023-01-19] MEDS ORDERED: metroNIDAZOLE 250 MG TABLET ONE (08:39)
[2023-01-19] MEDS: CARVEDILOL 3.125 MG TABLET (FP) PO SCH ×3 (09:03→22:10)
[2023-01-19] MEDS: HEPARIN NA (PORCINE) 5,000 UNITS/ML 1ML VIAL SQ SCH ×3 (09:03→22:10)
[2023-01-19] MEDS: metroNIDAZOLE 250 MG TABLET PO SCH ×2 (09:03→16:40)
[2023-01-19] MEDS: ASPIRIN COATED 81 MG TABLET.EC PO SCH (09:03)
[2023-01-19] MEDS: MIDODRINE HCL 5 MG TABLET PO SCH ×3 (09:04→17:42)
[2023-01-19] MEDS: FAMOTIDINE 20 MG TABLET PO SCH (09:04)
[2023-01-19] MEDS ORDERED: SODIUM CHLORIDE 1,000 ML IV SCH (10:00)
[2023-01-19] MEDS ORDERED: SODIUM CHLORIDE 500 ML IV STA (10:02)
[2023-01-19] MEDS ORDERED: SODIUM CHLORIDE 250 ML IV PRN (10:38)
[2023-01-19 18:00] LABS: HIV INTERPRETATION NEGATIVE (NEGATIVE)
[2023-01-19] MEDS: LACTOBACILLUS ACIDOPHILUS 1 TABLET PO SCH ×2 (22:10)
[2023-01-19] MEDS: ROSUVASTATIN CA 20 MG TABLET PO SCH ×2 (22:10)
[2023-01-20 08:37] LABS: BASO % 1.2 % (0-2.0); EOS % 3.7 % (0-4.5); HEMATOCRIT 30.2 % (35.4-49); HEMOGLOBIN 10.1 GM/dL (11.7-16.9); MCH 33.9 pg (25.7-33.7); MCHC 33.5 g/dl (32.0-35.9); MEAN CELL VOLUME 101.4 fl (80-96); MEAN PLT VOLUME 9.6 fl (7.5-11.1); MONO % 12.2 % (3.8-10.2); NEUT % 68.9 % (42.8-82.8); PLATELET COUNT 168 10^3/uL (134-434); RBC 2.98 M/mm3 (4.00-5.60); RDW 17.2 % (11.9-15.9); WHITE BLOOD COUNT 5.4 K/mm3 (4.0-10.0)
[2023-01-20 09:02] LABS: POTASSIUM 3.9 mmol/L (3.5-5.1)
[2023-01-20 09:12] LABS: ALBUMIN 2.2 g/dl (3.4-5.0); BLOOD UREA NITROGEN 4.5 mg/dL (7-18)
[2023-01-20 09:15] LABS: CREATININE 2.2 mg/dL (0.55-1.3); PHOSPHOROUS 2.2 mg/dL (2.5-4.9)
[2023-01-20 09:17] LABS: TOT PROT 4.7 g/dl (6.4-8.2)
[2023-01-20 09:18] LABS: BILIRUBIN,TOTAL 0.6 mg/dL (0.2-1)
[2023-01-20] MEDS: ASPIRIN COATED 81 MG TABLET.EC PO SCH (10:49)
[2023-01-20] MEDS: HEPARIN NA (PORCINE) 5,000 UNITS/ML 1ML VIAL SQ SCH ×2 (10:49→23:13)
[2023-01-20] MEDS: MIDODRINE HCL 5 MG TABLET PO SCH ×3 (10:49→18:10)
[2023-01-20] MEDS: FAMOTIDINE 20 MG TABLET PO SCH (10:50)
[2023-01-20] MEDS ORDERED: PIPERACILLIN/TAZOB 2.25 GM 2.25 GM in DEXTROSE 5%-WATER - 50 ML IVPB SCH (11:00)
[2023-01-20] MEDS: PIPERACILLIN/TAZOB 2.25 GM 2.25 GM in DEXTROSE 5%-WATER - 50 ML IVPB SCH ×2 (11:20→18:10)
[2023-01-20] MEDS: CARVEDILOL 3.125 MG TABLET (FP) PO SCH ×2 (11:40→23:12)
[2023-01-20] MEDS ORDERED: NAPH,MB-DB/K PH,MBDB POWDER PACKET PO ONE (14:45)
[2023-01-20] MEDS ORDERED: ACETAMINOPHEN 500 MG TABLET (FP) PO ONE (14:45)
[2023-01-20] MEDS ORDERED: SODIUM CHLORIDE 250 ML IV STA ×2 (16:59→23:13)
[2023-01-20] MEDS: metroNIDAZOLE 250 MG TABLET PO SCH (23:14)
[2023-01-20] MEDS: ROSUVASTATIN CA 20 MG TABLET PO SCH (23:14)
[2023-01-20] MEDS: LACTOBACILLUS ACIDOPHILUS 1 TABLET PO SCH (23:14)
[2023-01-21] MEDS: PIPERACILLIN/TAZOB 2.25 GM 2.25 GM in DEXTROSE 5%-WATER - 50 ML IVPB SCH ×3 (01:32→17:36)
[2023-01-21] MEDS: metroNIDAZOLE 250 MG TABLET PO SCH ×3 (05:20→21:19)
[2023-01-21] MEDS ORDERED: SODIUM CHLORIDE 250 ML IV STA (06:01)
[2023-01-21] MEDS: ASPIRIN COATED 81 MG TABLET.EC PO SCH (09:59)
[2023-01-21] MEDS: MIDODRINE HCL 5 MG TABLET PO SCH ×3 (09:59→17:35)
[2023-01-21] MEDS: CARVEDILOL 3.125 MG TABLET (FP) PO SCH ×2 (09:59→21:19)
[2023-01-21] MEDS: PANTOPRAZOLE SODIUM 40 MG VIAL IVPUSH SCH (10:00)
[2023-01-21] MEDS: FAMOTIDINE 20 MG TABLET PO SCH (10:00)
[2023-01-21] MEDS: VITAMIN B COMP W-C 1 EA TABLET (NEPHRO-VITE) PO SCH (10:00)
[2023-01-21] MEDS ORDERED: SODIUM CHLORIDE 250 ML IV PRN (13:00)
[2023-01-21] MEDS ORDERED: EPOETIN ALFA-EPBX 4,000 UNIT/ML VIAL SQ ONE (14:00)
[2023-01-21] MEDS: ACETAMINOPHEN 325 MG TABLET (FP) PO PRN (14:39)
[2023-01-21 21:04] LABS: HEMATOCRIT 32.8 % (35.4-49); HEMOGLOBIN 11.1 GM/dL (11.7-16.9); MCH 33.9 pg (25.7-33.7); MCHC 33.7 g/dl (32.0-35.9); MEAN CELL VOLUME 100.6 fl (80-96); MEAN PLT VOLUME 9.4 fl (7.5-11.1); PLATELET COUNT 155 10^3/uL (134-434); RBC 3.26 M/mm3 (4.00-5.60); RDW 17.2 % (11.9-15.9); WHITE BLOOD COUNT 5.2 K/mm3 (4.0-10.0)
[2023-01-21 21:15] LABS: CHLORIDE 114 mmol/L (98-107); SODIUM 148 mmol/L (136-145)
[2023-01-21 21:18] LABS: ALBUMIN 1.8 g/dl (3.4-5.0); BLOOD UREA NITROGEN 3.3 mg/dL (7-18); CALCIUM 7.5 mg/dL (8.5-10.1); CO2 31 mmol/L (21-32)
[2023-01-21] MEDS: LACTOBACILLUS ACIDOPHILUS 1 TABLET PO SCH (21:18)
[2023-01-21 21:19] LABS: GLUCOSE,RANDOM 155 mg/dL (74-106)
[2023-01-21] MEDS: ROSUVASTATIN CA 20 MG TABLET PO SCH (21:19)
[2023-01-21 21:21] LABS: PHOSPHOROUS 1.5 mg/dL (2.5-4.9); SGOT/AST 56 U/L (15-37); SGPT/ALT 25 U/L (13-61)
[2023-01-21 21:22] LABS: CREATININE 1.8 mg/dL (0.55-1.3)
[2023-01-21 21:23] LABS: BILIRUBIN,TOTAL 0.6 mg/dL (0.2-1); TOT PROT 4.3 g/dl (6.4-8.2)
[2023-01-21 21:24] LABS: ALK PHOS 325 U/L (45-117); ANION GAP 3 MMOL/L (8-16); POTASSIUM 2.9 mmol/L (3.5-5.1)
[2023-01-21] MEDS ORDERED: NAPH,MB-DB/K PH,MBDB POWDER PACKET PO ONE (21:41)
[2023-01-21] MEDS ORDERED: POTASSIUM CHLORIDE ORAL LIQUID 20 MEQ/15 ML PO ONE (21:41)
[2023-01-21 22:49] LABS: MAGNESIUM 1.8 mg/dL (1.8-2.4)
[2023-01-22] MEDS: PIPERACILLIN/TAZOB 2.25 GM 2.25 GM in DEXTROSE 5%-WATER - 50 ML IVPB SCH ×3 (01:47→17:22)
[2023-01-22] MEDS: metroNIDAZOLE 250 MG TABLET PO SCH ×4 (05:21→22:05)
[2023-01-22 08:27] LABS: BASO % 1.3 % (0-2.0); EOS % 2.3 % (0-4.5); HEMATOCRIT 35.2 % (35.4-49); HEMOGLOBIN 11.8 GM/dL (11.7-16.9); LYMPH % 13.8 % (8-40); MCH 34.2 pg (25.7-33.7); MCHC 33.6 g/dl (32.0-35.9); MEAN CELL VOLUME 101.8 fl (80-96); MEAN PLT VOLUME 9.8 fl (7.5-11.1); MONO % 11.6 % (3.8-10.2); PLATELET COUNT 149 10^3/uL (134-434); RBC 3.46 M/mm3 (4.00-5.60); RDW 17.4 % (11.9-15.9); WHITE BLOOD COUNT 5.7 K/mm3 (4.0-10.0)
[2023-01-22 09:17] LABS: POTASSIUM 3.4 mmol/L (3.5-5.1)
[2023-01-22] MEDS ORDERED: POTASSIUM CHLORIDE ORAL LIQUID 20 MEQ/15 ML PO ONE (09:20)
[2023-01-22 09:27] LABS: ALBUMIN 1.9 g/dl (3.4-5.0); BLOOD UREA NITROGEN 4.4 mg/dL (7-18); MAGNESIUM 1.9 mg/dL (1.8-2.4)
[2023-01-22 09:28] LABS: PHOSPHOROUS 1.4 mg/dL (2.5-4.9)
[2023-01-22 09:30] LABS: CREATININE 2.2 mg/dL (0.55-1.3); TOT PROT 4.7 g/dl (6.4-8.2)
[2023-01-22 09:32] LABS: BILIRUBIN,TOTAL 0.8 mg/dL (0.2-1)
[2023-01-22] MEDS: CARVEDILOL 3.125 MG TABLET (FP) PO SCH ×3 (10:03→22:10)
[2023-01-22] MEDS: MIDODRINE HCL 5 MG TABLET PO SCH ×3 (10:03→17:23)
[2023-01-22] MEDS: PANTOPRAZOLE SODIUM 40 MG VIAL IVPUSH SCH (10:03)
[2023-01-22] MEDS: ASPIRIN COATED 81 MG TABLET.EC PO SCH (10:04)
[2023-01-22] MEDS: VITAMIN B COMP W-C 1 EA TABLET (NEPHRO-VITE) PO SCH (10:04)
[2023-01-22] MEDS ORDERED: SODIUM CHLORIDE 250 ML IV PRN (13:50)
[2023-01-22] MEDS: NAPH,MB-DB/K PH,MBDB POWDER PACKET PO SCH ×3 (14:50→22:10)
[2023-01-22] MEDS: ROSUVASTATIN CA 20 MG TABLET PO SCH ×2 (21:45→22:10)
[2023-01-22] MEDS: LACTOBACILLUS ACIDOPHILUS 1 TABLET PO SCH ×2 (21:45→22:10)
[2023-01-23] MEDS: PIPERACILLIN/TAZOB 2.25 GM 2.25 GM in DEXTROSE 5%-WATER - 50 ML IVPB SCH ×3 (01:33→17:27)
[2023-01-23] MEDS: LACTOBACILLUS ACIDOPHILUS 1 TABLET PO SCH ×2 (01:34→22:19)
[2023-01-23] MEDS: ACETAMINOPHEN 325 MG TABLET (FP) PO PRN ×2 (01:39→15:50)
[2023-01-23] MEDS: NAPH,MB-DB/K PH,MBDB POWDER PACKET PO SCH (05:56)
[2023-01-23] MEDS: metroNIDAZOLE 250 MG TABLET PO SCH ×3 (05:56→22:20)
[2023-01-23] MEDS: MIDODRINE HCL 5 MG TABLET PO SCH ×4 (08:16→17:27)
[2023-01-23 09:53] LABS: HEMATOCRIT 31.8 % (35.4-49); HEMOGLOBIN 10.6 GM/dL (11.7-16.9); MCH 33.8 pg (25.7-33.7); MCHC 33.2 g/dl (32.0-35.9); MEAN CELL VOLUME 101.7 fl (80-96); MEAN PLT VOLUME 10.2 fl (7.5-11.1); PLATELET COUNT 120 10^3/uL (134-434); RBC 3.13 M/mm3 (4.00-5.60); RDW 17.6 % (11.9-15.9); WHITE BLOOD COUNT 4.8 K/mm3 (4.0-10.0)
[2023-01-23 10:06] LABS: POTASSIUM 4.3 mmol/L (3.5-5.1)
[2023-01-23 10:08] LABS: BLOOD UREA NITROGEN 10.4 mg/dL (7-18); CALCIUM 7.5 mg/dL (8.5-10.1)
[2023-01-23 10:09] LABS: ALBUMIN 1.7 g/dl (3.4-5.0)
[2023-01-23 10:11] LABS: PHOSPHOROUS 1.5 mg/dL (2.5-4.9)
[2023-01-23 10:12] LABS: CREATININE 3.2 mg/dL (0.55-1.3)
[2023-01-23 10:13] LABS: BILIRUBIN,TOTAL 0.4 mg/dL (0.2-1); TOT PROT 4.2 g/dl (6.4-8.2)
[2023-01-23] MEDS ORDERED: POTASSIUM PHOSPHATE 30 MM in DEXTROSE 5%-WATER - 500 ML IVPB ONE (12:23)
[2023-01-23] MEDS: ASPIRIN COATED 81 MG TABLET.EC PO SCH (13:02)
[2023-01-23] MEDS: VITAMIN B COMP W-C 1 EA TABLET (NEPHRO-VITE) PO SCH (13:02)
[2023-01-23] MEDS: PANTOPRAZOLE SODIUM 40 MG VIAL IVPUSH SCH (13:02)
[2023-01-23] MEDS: CARVEDILOL 3.125 MG TABLET (FP) PO SCH ×2 (13:03→22:19)
[2023-01-23] MEDS: AMINO ACIDS/PROTEIN HYDROLYS 30 ML LIQUID.PKT PO SCH (17:27)
[2023-01-23] MEDS: ROSUVASTATIN CA 20 MG TABLET PO SCH (22:19)
[2023-01-24] MEDS: PIPERACILLIN/TAZOB 2.25 GM 2.25 GM in DEXTROSE 5%-WATER - 50 ML IVPB SCH ×3 (01:25→17:34)
[2023-01-24] MEDS: metroNIDAZOLE 250 MG TABLET PO SCH ×3 (06:06→22:30)
[2023-01-24] MEDS: AMINO ACIDS/PROTEIN HYDROLYS 30 ML LIQUID.PKT PO SCH ×3 (08:52→17:35)
[2023-01-24 09:43] LABS: BASO % 1.4 % (0-2.0); EOS % 4.5 % (0-4.5); HEMATOCRIT 32.2 % (35.4-49); HEMOGLOBIN 10.8 GM/dL (11.7-16.9); LYMPH % 13.4 % (8-40); MCH 33.9 pg (25.7-33.7); MCHC 33.5 g/dl (32.0-35.9); MEAN CELL VOLUME 101.2 fl (80-96); MEAN PLT VOLUME 10.5 fl (7.5-11.1); MONO % 10.2 % (3.8-10.2); NEUT % 70.5 % (42.8-82.8); PLATELET COUNT 125 10^3/uL (134-434); RBC 3.18 M/mm3 (4.00-5.60); WHITE BLOOD COUNT 6.2 K/mm3 (4.0-10.0)
[2023-01-24] MEDS: NAPH,MB-DB/K PH,MBDB POWDER PACKET PO SCH (09:50)
[2023-01-24] MEDS: PANTOPRAZOLE SODIUM 40 MG VIAL IVPUSH SCH (09:50)
[2023-01-24] MEDS: ASPIRIN COATED 81 MG TABLET.EC PO SCH (09:51)
[2023-01-24] MEDS: MIDODRINE HCL 5 MG TABLET PO SCH ×3 (09:51→17:35)
[2023-01-24] MEDS: CARVEDILOL 3.125 MG TABLET (FP) PO SCH ×2 (09:51→22:50)
[2023-01-24] MEDS: VITAMIN B COMP W-C 1 EA TABLET (NEPHRO-VITE) PO SCH (09:52)
[2023-01-24 10:03] LABS: POTASSIUM 4.2 mmol/L (3.5-5.1)
[2023-01-24 10:07] LABS: ALBUMIN 1.6 g/dl (3.4-5.0); BLOOD UREA NITROGEN 11.2 mg/dL (7-18); CALCIUM 7.7 mg/dL (8.5-10.1)
[2023-01-24 10:08] LABS: MAGNESIUM 1.6 mg/dL (1.8-2.4)
[2023-01-24 10:10] LABS: CREATININE 2.1 mg/dL (0.55-1.3); PHOSPHOROUS 2.7 mg/dL (2.5-4.9)
[2023-01-24 10:12] LABS: BILIRUBIN,TOTAL 0.8 mg/dL (0.2-1); TOT PROT 4.2 g/dl (6.4-8.2)
[2023-01-24] MEDS ORDERED: MAGNESIUM SULF 50% (8.12 MEQ/2 ML-1 GM VIAL) IVPB ONE (12:54)
[2023-01-24] MEDS ORDERED: MAGNESIUM 2GM/50ML STERILE WATER IVPB IVPB ONE (13:30)
[2023-01-25] MEDS: PIPERACILLIN/TAZOB 2.25 GM 2.25 GM in DEXTROSE 5%-WATER - 50 ML IVPB SCH ×3 (01:28→17:13)
[2023-01-25] MEDS: ROSUVASTATIN CA 20 MG TABLET PO SCH ×2 (02:14→22:04)
[2023-01-25] MEDS: LACTOBACILLUS ACIDOPHILUS 1 TABLET PO SCH ×2 (02:14→22:04)
[2023-01-25] MEDS: metroNIDAZOLE 250 MG TABLET PO SCH ×3 (06:11→22:04)
[2023-01-25] MEDS: AMINO ACIDS/PROTEIN HYDROLYS 30 ML LIQUID.PKT PO SCH ×3 (08:28→18:45)
[2023-01-25] MEDS: VITAMIN B COMP W-C 1 EA TABLET (NEPHRO-VITE) PO SCH (09:18)
[2023-01-25] MEDS: ASPIRIN COATED 81 MG TABLET.EC PO SCH (09:18)
[2023-01-25] MEDS: MIDODRINE HCL 5 MG TABLET PO SCH ×3 (09:18→17:14)
[2023-01-25] MEDS: NAPH,MB-DB/K PH,MBDB POWDER PACKET PO SCH (09:19)
[2023-01-25] MEDS: CARVEDILOL 3.125 MG TABLET (FP) PO SCH ×2 (09:19→22:18)
[2023-01-25] MEDS: PANTOPRAZOLE SODIUM 40 MG VIAL IVPUSH SCH (09:20)
[2023-01-25 09:53] LABS: EOS % 4.1 % (0-4.5); HEMATOCRIT 31.5 % (35.4-49); HEMOGLOBIN 10.5 GM/dL (11.7-16.9); LYMPH % 16.7 % (8-40); MCH 33.6 pg (25.7-33.7); MCHC 33.3 g/dl (32.0-35.9); MEAN CELL VOLUME 100.9 fl (80-96); MEAN PLT VOLUME 10.4 fl (7.5-11.1); MONO % 11.2 % (3.8-10.2); PLATELET COUNT 126 10^3/uL (134-434); RBC 3.12 M/mm3 (4.00-5.60); RDW 17.3 % (11.9-15.9); WHITE BLOOD COUNT 6.5 K/mm3 (4.0-10.0)
[2023-01-25 10:34] LABS: POTASSIUM 4.9 mmol/L (3.5-5.1)
[2023-01-25 10:36] LABS: CALCIUM 7.5 mg/dL (8.5-10.1)
[2023-01-25 10:37] LABS: ALBUMIN 1.5 g/dl (3.4-5.0); BLOOD UREA NITROGEN 26.2 mg/dL (7-18); MAGNESIUM 2.3 mg/dL (1.8-2.4)
[2023-01-25 10:40] LABS: CREATININE 3.1 mg/dL (0.55-1.3); PHOSPHOROUS 3.4 mg/dL (2.5-4.9)
[2023-01-25 10:42] LABS: BILIRUBIN,TOTAL 0.6 mg/dL (0.2-1); TOT PROT 4.1 g/dl (6.4-8.2)
[2023-01-25] MEDS ORDERED: SODIUM CHLORIDE 250 ML IV PRN (12:51)
[2023-01-25] MEDS ORDERED: ASPIRIN COATED 81 MG TABLET.EC PO SCH (15:45)
[2023-01-25] MEDS ORDERED: SODIUM CHLORIDE 250 ML IV STA (17:39)
[2023-01-26] MEDS: PIPERACILLIN/TAZOB 2.25 GM 2.25 GM in DEXTROSE 5%-WATER - 50 ML IVPB SCH ×3 (02:23→18:02)
[2023-01-26] MEDS: metroNIDAZOLE 250 MG TABLET PO SCH ×2 (05:40→14:39)
[2023-01-26 10:16] LABS: HEMATOCRIT 32.6 % (35.4-49); HEMOGLOBIN 10.9 GM/dL (11.7-16.9); MCH 33.8 pg (25.7-33.7); MCHC 33.4 g/dl (32.0-35.9); MEAN CELL VOLUME 101.2 fl (80-96); MEAN PLT VOLUME 10.7 fl (7.5-11.1); PLATELET COUNT 144 10^3/uL (134-434); RBC 3.22 M/mm3 (4.00-5.60); WHITE BLOOD COUNT 7.1 K/mm3 (4.0-10.0)
[2023-01-26] MEDS: MIDODRINE HCL 5 MG TABLET PO SCH ×3 (10:22→17:53)
[2023-01-26 10:54] LABS: POTASSIUM 4.5 mmol/L (3.5-5.1)
[2023-01-26 10:57] LABS: ALBUMIN 1.5 g/dl (3.4-5.0); BLOOD UREA NITROGEN 40.6 mg/dL (7-18); CALCIUM 7.5 mg/dL (8.5-10.1)
[2023-01-26 11:00] LABS: CREATININE 3.9 mg/dL (0.55-1.3); PHOSPHOROUS 3.9 mg/dL (2.5-4.9)
[2023-01-26 11:02] LABS: BILIRUBIN,TOTAL 0.4 mg/dL (0.2-1); TOT PROT 4.2 g/dl (6.4-8.2)
[2023-01-26 12:28] VITALS: PULSE 84
[2023-01-26] MEDS: PANTOPRAZOLE SODIUM 40 MG VIAL IVPUSH SCH (12:47)
[2023-01-26] MEDS: NAPH,MB-DB/K PH,MBDB POWDER PACKET PO SCH (12:48)
[2023-01-26] MEDS: VITAMIN B COMP W-C 1 EA TABLET (NEPHRO-VITE) PO SCH (12:48)
[2023-01-26] MEDS: CARVEDILOL 3.125 MG TABLET (FP) PO SCH (12:48)
[2023-01-26] MEDS: AMINO ACIDS/PROTEIN HYDROLYS 30 ML LIQUID.PKT PO SCH ×3 (12:49→17:53)
[2023-01-26 16:03] VITALS: BP 106/42; RESP 20; TEMP 97.6
== END 2023-01-26 18:40 | disposition home health service (06) | DRG 371 ==
LOC: JER 12:56 → JERBED 16:35 → J5S 01-19 12:39
PROVIDERS: ADMIT Internal Medicine; ATTEND Internal Medicine
PROC: 5A1D70Z Performance of Urinary Filtration, Intermittent, Less than 6 Hours Per Day (ICD-10-PCS; principal; 2023-01-21)
PROC: 5A1D70Z Performance of Urinary Filtration, Intermittent, Less than 6 Hours Per Day (ICD-10-PCS; 2023-01-23)
PROC: 5A1D70Z Performance of Urinary Filtration, Intermittent, Less than 6 Hours Per Day (ICD-10-PCS; 2023-01-26)
DX: A04.72 Enterocolitis due to Clostridium difficile, not specified as recurrent (principal); E43 Unspecified severe protein-calorie malnutrition; G93.41 Metabolic encephalopathy; N18.6 End stage renal disease; B40.89 Other forms of blastomycosis; L03.115 Cellulitis of right lower limb; I13.2 Hypertensive heart and chronic kidney disease with heart failure and with stage 5 chronic kidney disease, or end stage renal disease; I50.22 Chronic systolic (congestive) heart failure; I24.8 Other forms of acute ischemic heart disease; L97.418 Non-pressure chronic ulcer of right heel and midfoot with other specified severity; Z68.1 Body mass index [BMI] 19.9 or less, adult; A07.8 Other specified protozoal intestinal diseases; I25.10 Atherosclerotic heart disease of native coronary artery without angina pectoris; E78.5 Hyperlipidemia, unspecified; K76.0 Fatty (change of) liver, not elsewhere classified; I73.9 Peripheral vascular disease, unspecified; E86.0 Dehydration; I95.9 Hypotension, unspecified; R19.7 Diarrhea, unspecified; D64.9 Anemia, unspecified; D69.6 Thrombocytopenia, unspecified; L89.152 Pressure ulcer of sacral region, stage 2; E83.39 Other disorders of phosphorus metabolism; M60.871 Other myositis, right ankle and foot; S91.301A Unspecified open wound, right foot, initial encounter; B95.2 Enterococcus as the cause of diseases classified elsewhere; B95.4 Other streptococcus as the cause of diseases classified elsewhere; B96.4 Proteus (mirabilis) (morganii) as the cause of diseases classified elsewhere; Z99.2 Dependence on renal dialysis; Z95.1 Presence of aortocoronary bypass graft
CPT/HCPCS: 0241U-QW; 36415; 71045-TC-FY; 73630-TC-RT-FY; 73718-TC-RT; 74176-TC; 80048; 80053; 82272; 82550; 82553; 82607; 82746; 82747; 82803; 82962; 83605; 83735; 84100; 84443; 84484; 85014; 85025; 85027; 85610; 85730; 86850; 86900; 86901; 87040; 87070; 87186; 87205; 87209; 87324; 87340; 87389; 87449; 87517; 93005; 93010; 93985; 99285-25; J1644; Q5106

== ENCOUNTER 2023-02-05 14:47 | Inpatient (IN) | payer BC ==
[2023-02-05 15:01] VITALS: BMI 16.9
[2023-02-05] MEDS ORDERED: ACETAMINOPHEN 1000 MG/100 ML BAG IVPB ONE ×2 (16:42→21:14)
[2023-02-05] MEDS ORDERED: ACETAMINOPHEN INJECTION 100 ML IVPB ONE ×2 (16:45→21:35)
[2023-02-05 19:07] LABS: BASO % 0.8 % (0-2.0); EOS % 1.5 % (0-4.5); HEMATOCRIT 30.1 % (35.4-49); HEMOGLOBIN 10.2 GM/dL (11.7-16.9); LYMPH % 14.9 % (8-40); MCH 33.8 pg (25.7-33.7); MCHC 34.1 g/dl (32.0-35.9); MEAN CELL VOLUME 99.2 fl (80-96); MEAN PLT VOLUME 9.3 fl (7.5-11.1); MONO % 11.4 % (3.8-10.2); NEUT % 71.4 % (42.8-82.8); PLATELET COUNT 200 10^3/uL (134-434); RBC 3.03 M/mm3 (4.00-5.60); WHITE BLOOD COUNT 5.4 K/mm3 (4.0-10.0)
[2023-02-05 19:14] LABS: INR 1.09 (0.83-1.09); PROTHROMBIN TIME (PATIENT) 12.6 SEC (9.7-13.0)
[2023-02-05 19:17] LABS: ACTIVATED PTT 30.2 SECONDS (25.2-36.5)
[2023-02-05 19:37] LABS: POTASSIUM 4.1 mmol/L (3.5-5.1)
[2023-02-05 19:39] LABS: CALCIUM 8.1 mg/dL (8.5-10.1)
[2023-02-05 19:43] LABS: CREATININE 2.5 mg/dL (0.55-1.3)
[2023-02-05 19:44] LABS: TOT PROT 4.6 g/dl (6.4-8.2)
[2023-02-05 19:45] LABS: BILIRUBIN,TOTAL 0.6 mg/dL (0.2-1)
[2023-02-05 19:54] LABS: ALBUMIN 1.8 g/dl (3.4-5.0); BLOOD UREA NITROGEN 8.2 mg/dL (7-18)
[2023-02-05] MEDS ORDERED: PIPERACILLIN/TAZOB 3.375 GM 3.375 GM in DEXTROSE 5%-WATER - 50 ML IVPB ONE (19:58)
[2023-02-05] MEDS ORDERED: VANCOMYCIN 1,000 MG in DEXTROSE 5%-WATER - 250 ML IVPB ONE (19:58)
[2023-02-05] MEDS ORDERED: PIPERACILLIN/TAZOB 3.375 GM 3.375 GM/50 ML BAG IVPB ONE (20:00)
[2023-02-05 20:13] LABS: ERYTHROCYTE SEDIMENTATION RATE 28 mm/hr (0-20)
[2023-02-05] MEDS ORDERED: VANCOMYCIN 1 GRAM (PRE-DOCKED) 1,000 MG/250 ML BAG IVPB ONE (21:36)
[2023-02-06] MEDS ORDERED: oxyCODONE HCL 5 MG TABLET ONE ×2 (03:27→10:39)
[2023-02-06] MEDS ORDERED: CLINDAMYCIN 600MG PREMIX IVPB 600 MG/50 ML BAG IVPB ONE ×2 (03:27→08:12)
[2023-02-06] MEDS: CLINDAMYCIN 600MG PREMIX IVPB 600 MG/50 ML BAG IVPB SCH ×4 (03:33→21:30)
[2023-02-06] MEDS: oxyCODONE HCL 5 MG TABLET PO PRN ×3 (03:33→21:30)
[2023-02-06] MEDS ORDERED: HEPARIN NA (PORCINE) 5,000 UNITS/ML 1ML VIAL ONE (05:49)
[2023-02-06] MEDS: HEPARIN NA (PORCINE) 5,000 UNITS/ML 1ML VIAL SQ SCH ×2 (05:50→21:30)
[2023-02-06] MEDS ORDERED: FAMOTIDINE 10 MG TABLET ONE (08:23)
[2023-02-06] MEDS ORDERED: ASPIRIN COATED 81 MG TABLET.EC ONE (08:23)
[2023-02-06 08:37] LABS: BASO % 1.1 % (0-2.0); EOS % 4.5 % (0-4.5); HEMATOCRIT 28.9 % (35.4-49); HEMOGLOBIN 9.8 GM/dL (11.7-16.9); MCH 34.2 pg (25.7-33.7); MCHC 33.8 g/dl (32.0-35.9); MEAN CELL VOLUME 101.2 fl (80-96); MONO % 11.2 % (3.8-10.2); NEUT % 64.2 % (42.8-82.8); PLATELET COUNT 166 10^3/uL (134-434); RBC 2.86 M/mm3 (4.00-5.60); RDW 19.1 % (11.9-15.9); RETICULOCYTES 1.44 % (0.5-1.5); WHITE BLOOD COUNT 5.3 K/mm3 (4.0-10.0)
[2023-02-06 08:53] LABS: POTASSIUM 4.6 mmol/L (3.5-5.1)
[2023-02-06 09:00] LABS: BLOOD UREA NITROGEN 9.9 mg/dL (7-18); CALCIUM 8.1 mg/dL (8.5-10.1)
[2023-02-06 09:01] LABS: ALBUMIN 1.7 g/dl (3.4-5.0); MAGNESIUM 2.1 mg/dL (1.8-2.4)
[2023-02-06 09:02] LABS: PHOSPHOROUS 2.7 mg/dL (2.5-4.9)
[2023-02-06 09:03] LABS: CREATININE 2.8 mg/dL (0.55-1.3)
[2023-02-06 09:04] LABS: BILIRUBIN,TOTAL 0.6 mg/dL (0.2-1); TOT PROT 4.4 g/dl (6.4-8.2)
[2023-02-06] MEDS ORDERED: VANCOMYCIN 1,000 MG in DEXTROSE 5%-WATER - 250 ML IVPB SCH ×2 (10:00→21:00)
[2023-02-06] MEDS ORDERED: PIPERACILLIN/TAZOB 2.25 GM 2.25 GM in DEXTROSE 5%-WATER - 50 ML IVPB SCH (10:00)
[2023-02-06] MEDS: FAMOTIDINE 10 MG TABLET PO SCH (10:35)
[2023-02-06] MEDS: VITAMIN B COMP W-C 1 EA TABLET (NEPHRO-VITE) PO SCH (10:36)
[2023-02-06] MEDS: MIDODRINE HCL 5 MG TABLET PO SCH ×2 (10:36→18:59)
[2023-02-06] MEDS: ASPIRIN COATED 81 MG TABLET.EC PO SCH (10:36)
[2023-02-06] MEDS ORDERED: PIPERACILLIN/TAZOB 2.25 GM 2.25 GM/50 ML BAG IVPB ONE (10:39)
[2023-02-06] MEDS: COLLAGENASE CLOSTRIDIUM HIST. 30 GRAMS TUBE TP SCH (10:52)
[2023-02-06] MEDS ORDERED: SODIUM CHLORIDE 250 ML IV PRN (12:01)
[2023-02-06] MEDS: PIPERACILLIN/TAZOB 2.25 GM 2.25 GM in DEXTROSE 5%-WATER - 50 ML IVPB SCH (19:01)
[2023-02-06] MEDS: ROSUVASTATIN CA 10 MG TABLET PO SCH (21:29)
[2023-02-06] MEDS: LACTOBACILLUS ACIDOPHILUS 1 TABLET PO SCH (21:30)
[2023-02-07] MEDS: PIPERACILLIN/TAZOB 2.25 GM 2.25 GM in DEXTROSE 5%-WATER - 50 ML IVPB SCH ×3 (02:02→17:34)
[2023-02-07] MEDS: CLINDAMYCIN 600MG PREMIX IVPB 600 MG/50 ML BAG IVPB SCH ×4 (03:34→21:28)
[2023-02-07] MEDS: HEPARIN NA (PORCINE) 5,000 UNITS/ML 1ML VIAL SQ SCH ×4 (06:40→21:29)
[2023-02-07 09:09] LABS: BASO % 1.3 % (0-2.0); EOS % 4.5 % (0-4.5); HEMATOCRIT 23.7 % (35.4-49); HEMOGLOBIN 7.9 GM/dL (11.7-16.9); LYMPH % 20.8 % (8-40); MCH 33.9 pg (25.7-33.7); MCHC 33.4 g/dl (32.0-35.9); MEAN CELL VOLUME 101.5 fl (80-96); MEAN PLT VOLUME 9.8 fl (7.5-11.1); MONO % 12.2 % (3.8-10.2); NEUT % 61.2 % (42.8-82.8); PLATELET COUNT 149 10^3/uL (134-434); RBC 2.34 M/mm3 (4.00-5.60); RDW 19.2 % (11.9-15.9)
[2023-02-07] MEDS: VITAMIN B COMP W-C 1 EA TABLET (NEPHRO-VITE) PO SCH (09:12)
[2023-02-07] MEDS: FAMOTIDINE 10 MG TABLET PO SCH (09:12)
[2023-02-07] MEDS: ASPIRIN COATED 81 MG TABLET.EC PO SCH (09:12)
[2023-02-07] MEDS: MIDODRINE HCL 5 MG TABLET PO SCH ×4 (09:15→17:34)
[2023-02-07] MEDS: COLLAGENASE CLOSTRIDIUM HIST. 30 GRAMS TUBE TP SCH (09:21)
[2023-02-07 09:38] LABS: POTASSIUM 3.1 mmol/L (3.5-5.1)
[2023-02-07 09:45] LABS: ALBUMIN 1.8 g/dl (3.4-5.0); CALCIUM 8.1 mg/dL (8.5-10.1)
[2023-02-07 09:47] LABS: BLOOD UREA NITROGEN 4.4 mg/dL (7-18)
[2023-02-07 09:51] LABS: BILIRUBIN,TOTAL 0.8 mg/dL (0.2-1)
[2023-02-07] MEDS: oxyCODONE HCL 5 MG TABLET PO PRN ×2 (14:33→23:13)
[2023-02-07] MEDS: LACTOBACILLUS ACIDOPHILUS 1 TABLET PO SCH (21:29)
[2023-02-07] MEDS: ROSUVASTATIN CA 10 MG TABLET PO SCH (21:29)
[2023-02-08] MEDS: PIPERACILLIN/TAZOB 2.25 GM 2.25 GM in DEXTROSE 5%-WATER - 50 ML IVPB SCH ×3 (01:53→17:16)
[2023-02-08] MEDS: HEPARIN NA (PORCINE) 5,000 UNITS/ML 1ML VIAL SQ SCH ×3 (05:27→22:23)
[2023-02-08] MEDS: CLINDAMYCIN 600MG PREMIX IVPB 600 MG/50 ML BAG IVPB SCH ×4 (05:27→22:22)
[2023-02-08] MEDS: oxyCODONE HCL 5 MG TABLET PO PRN ×2 (06:35→22:20)
[2023-02-08] MEDS: FAMOTIDINE 10 MG TABLET PO SCH (09:54)
[2023-02-08] MEDS: MIDODRINE HCL 5 MG TABLET PO SCH ×3 (09:55→17:16)
[2023-02-08] MEDS: ASPIRIN COATED 81 MG TABLET.EC PO SCH (09:55)
[2023-02-08] MEDS: VITAMIN B COMP W-C 1 EA TABLET (NEPHRO-VITE) PO SCH (09:55)
[2023-02-08] MEDS: COLLAGENASE CLOSTRIDIUM HIST. 30 GRAMS TUBE TP SCH (09:56)
[2023-02-08 12:30] LABS: BASO % 1.4 % (0-2.0); EOS % 5.9 % (0-4.5); HEMATOCRIT 23.6 % (35.4-49); HEMOGLOBIN 8.1 GM/dL (11.7-16.9); LYMPH % 21.6 % (8-40); MCH 33.9 pg (25.7-33.7); MCHC 34.2 g/dl (32.0-35.9); MEAN CELL VOLUME 99.2 fl (80-96); MEAN PLT VOLUME 9.5 fl (7.5-11.1); MONO % 11.8 % (3.8-10.2); NEUT % 59.3 % (42.8-82.8); PLATELET COUNT 153 10^3/uL (134-434); RBC 2.38 M/mm3 (4.00-5.60); RDW 19.1 % (11.9-15.9)
[2023-02-08 12:49] LABS: POTASSIUM 3.2 mmol/L (3.5-5.1)
[2023-02-08 12:53] LABS: BLOOD UREA NITROGEN 6.5 mg/dL (7-18); CALCIUM 7.7 mg/dL (8.5-10.1)
[2023-02-08] MEDS ORDERED: POTASSIUM CHLORIDE TABS 20 MEQ TABLET.ER (FP) PO SCH ×2 (14:00→14:02)
[2023-02-08] MEDS: POTASSIUM CHLORIDE TABS 20 MEQ TABLET.ER (FP) PO SCH (15:05)
[2023-02-08] MEDS: ROSUVASTATIN CA 10 MG TABLET PO SCH (22:22)
[2023-02-08] MEDS: LACTOBACILLUS ACIDOPHILUS 1 TABLET PO SCH (22:23)
[2023-02-09] MEDS: PIPERACILLIN/TAZOB 2.25 GM 2.25 GM in DEXTROSE 5%-WATER - 50 ML IVPB SCH ×3 (01:29→16:59)
[2023-02-09] MEDS: CLINDAMYCIN 600MG PREMIX IVPB 600 MG/50 ML BAG IVPB SCH ×4 (03:48→21:25)
[2023-02-09] MEDS: oxyCODONE HCL 5 MG TABLET PO PRN ×3 (06:08→22:00)
[2023-02-09] MEDS: HEPARIN NA (PORCINE) 5,000 UNITS/ML 1ML VIAL SQ SCH ×3 (06:08→22:25)
[2023-02-09 08:23] LABS: HEMATOCRIT 25.6 % (35.4-49); HEMOGLOBIN 8.8 GM/dL (11.7-16.9); MCH 34.4 pg (25.7-33.7); MCHC 34.4 g/dl (32.0-35.9); MEAN CELL VOLUME 99.9 fl (80-96); MEAN PLT VOLUME 9.3 fl (7.5-11.1); PLATELET COUNT 149 10^3/uL (134-434); RBC 2.56 M/mm3 (4.00-5.60); RDW 19.7 % (11.9-15.9); WHITE BLOOD COUNT 4.9 K/mm3 (4.0-10.0)
[2023-02-09 08:49] LABS: POTASSIUM 3.5 mmol/L (3.5-5.1)
[2023-02-09 08:52] LABS: BLOOD UREA NITROGEN 10.1 mg/dL (7-18)
[2023-02-09 08:55] LABS: CREATININE 3.7 mg/dL (0.55-1.3)
[2023-02-09] MEDS ORDERED: SODIUM CHLORIDE 250 ML IV PRN (09:37)
[2023-02-09 09:49] LABS: ANISOCYTOSIS 0; MACROCYTOSIS 0
[2023-02-09] MEDS: MIDODRINE HCL 5 MG TABLET PO SCH ×3 (11:17→16:59)
[2023-02-09] MEDS ORDERED: EPOETIN ALFA-EPBX 10,000 UNIT/ML VIAL IVPUSH ONE (12:00)
[2023-02-09] MEDS: VITAMIN B COMP W-C 1 EA TABLET (NEPHRO-VITE) PO SCH (13:56)
[2023-02-09] MEDS: FAMOTIDINE 10 MG TABLET PO SCH (13:57)
[2023-02-09] MEDS: POTASSIUM CHLORIDE TABS 20 MEQ TABLET.ER (FP) PO SCH (13:57)
[2023-02-09] MEDS: SILVER SULFADIAZINE 1% TOP CREAM 50 GM JAR TP SCH (14:00)
[2023-02-09] MEDS: COLLAGENASE CLOSTRIDIUM HIST. 30 GRAMS TUBE TP SCH (14:00)
[2023-02-09] MEDS: ASPIRIN COATED 81 MG TABLET.EC PO SCH (14:02)
[2023-02-09] MEDS: ROSUVASTATIN CA 10 MG TABLET PO SCH (22:23)
[2023-02-09] MEDS: LACTOBACILLUS ACIDOPHILUS 1 TABLET PO SCH (22:25)
[2023-02-10] MEDS: PIPERACILLIN/TAZOB 2.25 GM 2.25 GM in DEXTROSE 5%-WATER - 50 ML IVPB SCH ×3 (02:37→18:19)
[2023-02-10] MEDS: CLINDAMYCIN 600MG PREMIX IVPB 600 MG/50 ML BAG IVPB SCH ×2 (03:38→08:46)
[2023-02-10] MEDS: HEPARIN NA (PORCINE) 5,000 UNITS/ML 1ML VIAL SQ SCH ×3 (05:28→21:20)
[2023-02-10] MEDS: POTASSIUM CHLORIDE TABS 20 MEQ TABLET.ER (FP) PO SCH (10:32)
[2023-02-10] MEDS: ASPIRIN COATED 81 MG TABLET.EC PO SCH (10:32)
[2023-02-10] MEDS: VITAMIN B COMP W-C 1 EA TABLET (NEPHRO-VITE) PO SCH (10:33)
[2023-02-10] MEDS: FAMOTIDINE 10 MG TABLET PO SCH (10:33)
[2023-02-10] MEDS ORDERED: SODIUM CHLORIDE 250 ML IV PRN (12:12)
[2023-02-10] MEDS ORDERED: HYDROmorphone HCl 2 MG/ML VIAL IVPUSH PRN (13:34)
[2023-02-10] MEDS ORDERED: HYDROmorphone HCl 2 MG/ML VIAL IVPB PRN (14:15)
[2023-02-10] MEDS: DOCUSATE SODIUM 100 MG CAPSULE (FP) PO SCH ×2 (14:38→21:20)
[2023-02-10] MEDS: MIDODRINE HCL 5 MG TABLET PO SCH ×4 (14:55→18:19)
[2023-02-10] MEDS: COLLAGENASE CLOSTRIDIUM HIST. 30 GRAMS TUBE TP SCH (15:18)
[2023-02-10] MEDS: SILVER SULFADIAZINE 1% TOP CREAM 50 GM JAR TP SCH (15:18)
[2023-02-10] MEDS: ACETAMINOPHEN 325 MG TABLET (FP) PO PRN (18:18)
[2023-02-10] MEDS: oxyCODONE HCL 5 MG TABLET PO PRN (21:18)
[2023-02-10] MEDS: LACTOBACILLUS ACIDOPHILUS 1 TABLET PO SCH (21:19)
[2023-02-10] MEDS: ROSUVASTATIN CA 10 MG TABLET PO SCH (21:19)
[2023-02-11] MEDS: PIPERACILLIN/TAZOB 2.25 GM 2.25 GM in DEXTROSE 5%-WATER - 50 ML IVPB SCH ×3 (01:53→22:55)
[2023-02-11] MEDS: HEPARIN NA (PORCINE) 5,000 UNITS/ML 1ML VIAL SQ SCH ×3 (05:41→22:54)
[2023-02-11] MEDS: DOCUSATE SODIUM 100 MG CAPSULE (FP) PO SCH ×3 (05:42→22:56)
[2023-02-11] MEDS: MIDODRINE HCL 5 MG TABLET PO SCH ×4 (08:28→17:12)
[2023-02-11 10:30] LABS: POTASSIUM 3.5 mmol/L (3.5-5.1)
[2023-02-11 10:32] LABS: BLOOD UREA NITROGEN 8.5 mg/dL (7-18)
[2023-02-11 10:41] LABS: HEMATOCRIT 22.2 % (35.4-49); HEMOGLOBIN 7.5 GM/dL (11.7-16.9); MCH 34.3 pg (25.7-33.7); MCHC 33.8 g/dl (32.0-35.9); MEAN CELL VOLUME 101.6 fl (80-96); MEAN PLT VOLUME 10.2 fl (7.5-11.1); PLATELET COUNT 134 10^3/uL (134-434); RBC 2.19 M/mm3 (4.00-5.60); RDW 18.3 % (11.9-15.9); WHITE BLOOD COUNT 4.7 K/mm3 (4.0-10.0)
[2023-02-11] MEDS ORDERED: EPOETIN ALFA-EPBX 10,000 UNIT/ML VIAL IVPUSH ONE (11:15)
[2023-02-11] MEDS: VITAMIN B COMP W-C 1 EA TABLET (NEPHRO-VITE) PO SCH (12:09)
[2023-02-11] MEDS: FAMOTIDINE 10 MG TABLET PO SCH (12:09)
[2023-02-11] MEDS: POTASSIUM CHLORIDE TABS 20 MEQ TABLET.ER (FP) PO SCH (12:09)
[2023-02-11] MEDS: ASPIRIN COATED 81 MG TABLET.EC PO SCH (12:09)
[2023-02-11] MEDS: COLLAGENASE CLOSTRIDIUM HIST. 30 GRAMS TUBE TP SCH (12:10)
[2023-02-11] MEDS: SILVER SULFADIAZINE 1% TOP CREAM 50 GM JAR TP SCH (12:10)
[2023-02-11] MEDS: oxyCODONE HCL 5 MG TABLET PO PRN (14:01)
[2023-02-11] MEDS: ROSUVASTATIN CA 10 MG TABLET PO SCH (22:54)
[2023-02-11] MEDS: LACTOBACILLUS ACIDOPHILUS 1 TABLET PO SCH (22:54)
[2023-02-12] MEDS: HEPARIN NA (PORCINE) 5,000 UNITS/ML 1ML VIAL SQ SCH ×3 (05:52→21:48)
[2023-02-12] MEDS: DOCUSATE SODIUM 100 MG CAPSULE (FP) PO SCH ×4 (05:52→21:48)
[2023-02-12] MEDS: ACETAMINOPHEN 325 MG TABLET (FP) PO PRN ×3 (06:05→21:47)
[2023-02-12] MEDS: PIPERACILLIN/TAZOB 2.25 GM 2.25 GM in DEXTROSE 5%-WATER - 50 ML IVPB SCH ×3 (07:41→17:08)
[2023-02-12] MEDS ORDERED: PIPERACILLIN/TAZOBACTAM 2.25 GM VIAL IVPB ONE (09:48)
[2023-02-12] MEDS: POTASSIUM CHLORIDE TABS 20 MEQ TABLET.ER (FP) PO SCH (10:04)
[2023-02-12] MEDS: FAMOTIDINE 10 MG TABLET PO SCH (10:04)
[2023-02-12] MEDS: ASPIRIN COATED 81 MG TABLET.EC PO SCH (10:04)
[2023-02-12] MEDS: VITAMIN B COMP W-C 1 EA TABLET (NEPHRO-VITE) PO SCH (10:04)
[2023-02-12] MEDS: MIDODRINE HCL 5 MG TABLET PO SCH ×3 (10:05→17:10)
[2023-02-12] MEDS: SILVER SULFADIAZINE 1% TOP CREAM 50 GM JAR TP SCH (11:48)
[2023-02-12] MEDS: COLLAGENASE CLOSTRIDIUM HIST. 30 GRAMS TUBE TP SCH (11:48)
[2023-02-12] MEDS: LACTOBACILLUS ACIDOPHILUS 1 TABLET PO SCH (21:48)
[2023-02-12] MEDS: ROSUVASTATIN CA 10 MG TABLET PO SCH (21:48)
[2023-02-13] MEDS: PIPERACILLIN/TAZOB 2.25 GM 2.25 GM in DEXTROSE 5%-WATER - 50 ML IVPB SCH ×3 (01:52→17:10)
[2023-02-13] MEDS: DOCUSATE SODIUM 100 MG CAPSULE (FP) PO SCH ×3 (06:05→21:29)
[2023-02-13] MEDS ORDERED: SODIUM CHLORIDE 250 ML IV PRN (07:46)
[2023-02-13] MEDS ORDERED: EPOETIN ALFA-EPBX 10,000 UNIT/ML VIAL SQ ONE (08:00)
[2023-02-13 08:14] LABS: BASO % 1.5 % (0-2.0); EOS % 4.1 % (0-4.5); HEMATOCRIT 21.7 % (35.4-49); HEMOGLOBIN 7.3 GM/dL (11.7-16.9); LYMPH % 20.9 % (8-40); MCHC 33.6 g/dl (32.0-35.9); MEAN CELL VOLUME 104.2 fl (80-96); MEAN PLT VOLUME 10.2 fl (7.5-11.1); MONO % 10.8 % (3.8-10.2); NEUT % 62.7 % (42.8-82.8); PLATELET COUNT 122 10^3/uL (134-434); RBC 2.08 M/mm3 (4.00-5.60); RDW 18.5 % (11.9-15.9); WHITE BLOOD COUNT 4.6 K/mm3 (4.0-10.0)
[2023-02-13 08:18] LABS: INR 1.15 (0.83-1.09); PROTHROMBIN TIME (PATIENT) 13.3 SEC (9.7-13.0)
[2023-02-13 08:21] LABS: ACTIVATED PTT 33.2 SECONDS (25.2-36.5)
[2023-02-13 08:23] LABS: POTASSIUM 4.3 mmol/L (3.5-5.1)
[2023-02-13 08:40] LABS: ALBUMIN 1.8 g/dl (3.4-5.0); BLOOD UREA NITROGEN 10.4 mg/dL (7-18); MAGNESIUM 1.8 mg/dL (1.8-2.4)
[2023-02-13 08:42] LABS: PHOSPHOROUS 1.5 mg/dL (2.5-4.9)
[2023-02-13 08:43] LABS: BILIRUBIN,TOTAL 1.3 mg/dL (0.2-1); CREATININE 2.9 mg/dL (0.55-1.3)
[2023-02-13 08:44] LABS: TOT PROT 4.3 g/dl (6.4-8.2)
[2023-02-13] MEDS: MIDODRINE HCL 5 MG TABLET PO SCH ×3 (09:21→18:06)
[2023-02-13] MEDS: ACETAMINOPHEN 325 MG TABLET (FP) PO PRN ×2 (09:29→18:06)
[2023-02-13 12:56] LABS: RETICULOCYTES 2.16 % (0.5-1.5)
[2023-02-13] MEDS: FAMOTIDINE 10 MG TABLET PO SCH (13:32)
[2023-02-13] MEDS: POTASSIUM CHLORIDE TABS 20 MEQ TABLET.ER (FP) PO SCH (13:32)
[2023-02-13] MEDS: ASPIRIN COATED 81 MG TABLET.EC PO SCH (13:32)
[2023-02-13] MEDS: VITAMIN B COMP W-C 1 EA TABLET (NEPHRO-VITE) PO SCH (14:29)
[2023-02-13] MEDS: SILVER SULFADIAZINE 1% TOP CREAM 50 GM JAR TP SCH (14:30)
[2023-02-13] MEDS: COLLAGENASE CLOSTRIDIUM HIST. 30 GRAMS TUBE TP SCH (14:30)
[2023-02-13] MEDS ORDERED: MAGNESIUM SULF 50% (8.12 MEQ/2 ML-1 GM VIAL) IVPB ONE (15:39)
[2023-02-13] MEDS ORDERED: NAPH,MB-DB/K PH,MBDB POWDER PACKET PO ONE (15:40)
[2023-02-13] MEDS ORDERED: PIPERACILLIN/TAZOBACTAM 2.25 GM VIAL IVPB ONE (17:05)
[2023-02-13] MEDS ORDERED: IRON SUCROSE INJECTION 100 MG in SODIUM CHLORIDE 95 ML IVPB ONE (17:55)
[2023-02-13] MEDS: ROSUVASTATIN CA 10 MG TABLET PO SCH (21:29)
[2023-02-13] MEDS: LACTOBACILLUS ACIDOPHILUS 1 TABLET PO SCH (21:29)
[2023-02-14] MEDS: ACETAMINOPHEN 325 MG TABLET (FP) PO PRN ×2 (01:17→07:40)
[2023-02-14] MEDS: PIPERACILLIN/TAZOB 2.25 GM 2.25 GM in DEXTROSE 5%-WATER - 50 ML IVPB SCH ×3 (01:28→17:32)
[2023-02-14] MEDS: DOCUSATE SODIUM 100 MG CAPSULE (FP) PO SCH ×3 (06:11→22:08)
[2023-02-14] MEDS: AMINO ACIDS/PROTEIN HYDROLYS 30 ML LIQUID.PKT PO SCH (08:38)
[2023-02-14 09:01] LABS: HEMATOCRIT 27.3 % (35.4-49); HEMOGLOBIN 9.3 GM/dL (11.7-16.9); MCH 34.3 pg (25.7-33.7); MCHC 33.9 g/dl (32.0-35.9); MEAN CELL VOLUME 101.2 fl (80-96); MEAN PLT VOLUME 9.9 fl (7.5-11.1); PLATELET COUNT 127 10^3/uL (134-434); RDW 19.6 % (11.9-15.9); WHITE BLOOD COUNT 5.9 K/mm3 (4.0-10.0)
[2023-02-14 09:29] LABS: POTASSIUM 4.4 mmol/L (3.5-5.1)
[2023-02-14 09:31] LABS: BLOOD UREA NITROGEN 6.9 mg/dL (7-18); CALCIUM 8.1 mg/dL (8.5-10.1); MAGNESIUM 1.7 mg/dL (1.8-2.4)
[2023-02-14 09:34] LABS: CREATININE 1.9 mg/dL (0.55-1.3); PHOSPHOROUS 1.3 mg/dL (2.5-4.9)
[2023-02-14] MEDS: POTASSIUM CHLORIDE TABS 20 MEQ TABLET.ER (FP) PO SCH (09:52)
[2023-02-14] MEDS: ASPIRIN COATED 81 MG TABLET.EC PO SCH (09:52)
[2023-02-14] MEDS: VITAMIN B COMP W-C 1 EA TABLET (NEPHRO-VITE) PO SCH (09:52)
[2023-02-14] MEDS: MIDODRINE HCL 5 MG TABLET PO SCH ×3 (09:52→17:32)
[2023-02-14] MEDS: FAMOTIDINE 10 MG TABLET PO SCH (09:52)
[2023-02-14] MEDS: COLLAGENASE CLOSTRIDIUM HIST. 30 GRAMS TUBE TP SCH (11:55)
[2023-02-14] MEDS: SILVER SULFADIAZINE 1% TOP CREAM 50 GM JAR TP SCH (11:56)
[2023-02-14] MEDS ORDERED: MAGNESIUM SULF 50% (8.12 MEQ/2 ML-1 GM VIAL) IVPB ONE (14:40)
[2023-02-14] MEDS: NAPH,MB-DB/K PH,MBDB POWDER PACKET PO SCH ×2 (15:28→22:08)
[2023-02-14] MEDS: LACTOBACILLUS ACIDOPHILUS 1 TABLET PO SCH (22:08)
[2023-02-14] MEDS: ROSUVASTATIN CA 10 MG TABLET PO SCH (22:08)
[2023-02-15 00:56] VITALS: RESP 18
[2023-02-15] MEDS ORDERED: PIPERACILLIN/TAZOBACTAM 2.25 GM VIAL IVPB ONE (01:26)
[2023-02-15] MEDS: ACETAMINOPHEN 325 MG TABLET (FP) PO PRN ×2 (01:34→10:37)
[2023-02-15] MEDS: PIPERACILLIN/TAZOB 2.25 GM 2.25 GM in DEXTROSE 5%-WATER - 50 ML IVPB SCH ×2 (01:34→10:36)
[2023-02-15 05:37] VITALS: BP 101/70; PULSE 77; TEMP 97.8
[2023-02-15] MEDS: NAPH,MB-DB/K PH,MBDB POWDER PACKET PO SCH ×2 (06:17→13:27)
[2023-02-15] MEDS: DOCUSATE SODIUM 100 MG CAPSULE (FP) PO SCH ×2 (06:17→13:32)
[2023-02-15] MEDS: AMINO ACIDS/PROTEIN HYDROLYS 30 ML LIQUID.PKT PO SCH (10:36)
[2023-02-15] MEDS: MIDODRINE HCL 5 MG TABLET PO SCH ×2 (10:36→13:40)
[2023-02-15] MEDS: VITAMIN B COMP W-C 1 EA TABLET (NEPHRO-VITE) PO SCH (10:36)
[2023-02-15] MEDS: ASPIRIN COATED 81 MG TABLET.EC PO SCH (10:36)
[2023-02-15] MEDS: POTASSIUM CHLORIDE TABS 20 MEQ TABLET.ER (FP) PO SCH (10:36)
[2023-02-15] MEDS: FAMOTIDINE 10 MG TABLET PO SCH (10:36)
[2023-02-15] MEDS: SILVER SULFADIAZINE 1% TOP CREAM 50 GM JAR TP SCH (10:46)
[2023-02-15] MEDS: COLLAGENASE CLOSTRIDIUM HIST. 30 GRAMS TUBE TP SCH (10:46)
[2023-02-16] MEDS ORDERED: SODIUM CHLORIDE 250 ML IV PRN (14:06)
[2023-02-16] MEDS ORDERED: EPOETIN ALFA-EPBX 10,000 UNIT/ML VIAL SQ ONE (14:06)
== END 2023-02-15 15:46 | disposition home or self-care (01) | DRG 299 ==
LOC: JER 14:47 → JERBED 20:21 → J7W 02-06 15:43 → J6S 02-12 01:00
PROVIDERS: ADMIT Internal Medicine; ATTEND Internal Medicine
PROC: 5A1D70Z Performance of Urinary Filtration, Intermittent, Less than 6 Hours Per Day (ICD-10-PCS; principal; 2023-02-06)
PROC: 5A1D70Z Performance of Urinary Filtration, Intermittent, Less than 6 Hours Per Day (ICD-10-PCS; 2023-02-09)
PROC: 5A1D70Z Performance of Urinary Filtration, Intermittent, Less than 6 Hours Per Day (ICD-10-PCS; 2023-02-11)
PROC: 5A1D70Z Performance of Urinary Filtration, Intermittent, Less than 6 Hours Per Day (ICD-10-PCS; 2023-02-13)
PROC: 30233N1 Transfusion of Nonautologous Red Blood Cells into Peripheral Vein, Percutaneous Approach (ICD-10-PCS; 2023-02-13)
DX: I73.9 Peripheral vascular disease, unspecified (principal); N18.6 End stage renal disease; L97.418 Non-pressure chronic ulcer of right heel and midfoot with other specified severity; I13.2 Hypertensive heart and chronic kidney disease with heart failure and with stage 5 chronic kidney disease, or end stage renal disease; I50.22 Chronic systolic (congestive) heart failure; I25.10 Atherosclerotic heart disease of native coronary artery without angina pectoris; I45.10 Unspecified right bundle-branch block; E78.5 Hyperlipidemia, unspecified; I25.2 Old myocardial infarction; K76.0 Fatty (change of) liver, not elsewhere classified; I25.5 Ischemic cardiomyopathy; I95.89 Other hypotension; E83.39 Other disorders of phosphorus metabolism; E83.42 Hypomagnesemia; D63.1 Anemia in chronic kidney disease; Z99.2 Dependence on renal dialysis; Z95.1 Presence of aortocoronary bypass graft
CPT/HCPCS: 36415; 36430; 73610-TC-RT-FY; 73630-TC-RT-FY; 73718-TC-RT; 80048; 80053; 82272; 82607; 82728; 82746; 82962; 83540; 83550; 83605; 83735; 84100; 84466; 85025; 85027; 85045; 85610; 85651; 85730; 86140; 86850; 86900; 86901; 86922; 87040; 93005; 93010; 93925-TC; 97116-GP; 97161-GP; 99285-25; G0480; J1644; J1756; P9058; Q5106

== ENCOUNTER 2023-03-14 17:16 | Inpatient (IN) | payer BC ==
[2023-03-14 20:24] LABS: BASO % 0.6 % (0-2.0); EOS % 0.4 % (0-4.5); HEMATOCRIT 34.6 % (35.4-49); HEMOGLOBIN 11.3 GM/dL (11.7-16.9); LYMPH % 5.6 % (8-40); MCH 34.3 pg (25.7-33.7); MCHC 32.7 g/dl (32.0-35.9); MEAN CELL VOLUME 104.8 fl (80-96); MEAN PLT VOLUME 9.8 fl (7.5-11.1); MONO % 4.6 % (3.8-10.2); NEUT % 88.8 % (42.8-82.8); PLATELET COUNT 68 10^3/uL (134-434); RBC 3.31 M/mm3 (4.00-5.60); RDW 19.5 % (11.9-15.9); WHITE BLOOD COUNT 13.4 K/mm3 (4.0-10.0)
[2023-03-14 20:31] LABS: INR 1.44 (0.83-1.09); PROTHROMBIN TIME (PATIENT) 16.6 SEC (9.7-13.0)
[2023-03-14 20:33] LABS: ACTIVATED PTT 36.9 SECONDS (25.2-36.5)
[2023-03-14 21:05] LABS: ERYTHROCYTE SEDIMENTATION RATE 16 mm/hr (0-20)
[2023-03-14] MEDS ORDERED: PIPERACILLIN/TAZOB 4.5 GM 4.5 GM in DEXTROSE 5%-WATER 100 ML IVPB ONE (21:08)
[2023-03-14] MEDS ORDERED: VANCOMYCIN 1,000 MG in DEXTROSE 5%-WATER - 250 ML IVPB ONE (21:08)
[2023-03-14 21:13] LABS: ALBUMIN 1.6 g/dl (3.4-5.0); BLOOD UREA NITROGEN 4.2 mg/dL (7-18); MAGNESIUM 1.9 mg/dL (1.8-2.4)
[2023-03-14] MEDS ORDERED: VANCOMYCIN 1 GRAM (PRE-DOCKED) 1,000 MG/250 ML BAG IVPB ONE (21:15)
[2023-03-14] MEDS ORDERED: PIPERACILLIN/TAZOB 4.5 GM 4.5 GM/100 ML BAG IVPB ONE (21:15)
[2023-03-14 21:16] LABS: CREATININE 1.7 mg/dL (0.55-1.3)
[2023-03-14 21:17] LABS: BILIRUBIN,TOTAL 1.2 mg/dL (0.2-1); TOT PROT 4.6 g/dl (6.4-8.2)
[2023-03-14] MEDS ORDERED: DEXTROSE 50%-WATER - 25 GM/50 ML VIAL IVPUSH ONE ×2 (21:30)
[2023-03-14] MEDS ORDERED: DEXTROSE 50%-WATER 25 GM/50 ML DISP.SYRIN ONE (21:31)
[2023-03-15] MEDS ORDERED: SODIUM CHLORIDE 1,000 ML IV SCH (00:15)
[2023-03-15] MEDS ORDERED: PIPERACILLIN/TAZOB 3.375 GM 3.375 GM/50 ML BAG IVPB ONE ×2 (01:54→09:40)
[2023-03-15] MEDS: PIPERACILLIN/TAZOB 3.375 GM 3.375 GM in DEXTROSE 5%-WATER - 50 ML IVPB SCH ×4 (02:00→15:33)
[2023-03-15 05:56] LABS: HEMATOCRIT 30.8 % (35.4-49); HEMOGLOBIN 10.2 GM/dL (11.7-16.9); MCH 34.8 pg (25.7-33.7); MCHC 33.2 g/dl (32.0-35.9); MEAN CELL VOLUME 104.9 fl (80-96); PLATELET COUNT 47 10^3/uL (134-434); RBC 2.94 M/mm3 (4.00-5.60); WHITE BLOOD COUNT 9.4 K/mm3 (4.0-10.0)
[2023-03-15] MEDS ORDERED: SODIUM CHLORIDE 0.9% 500 ML INFUS.BAG IV ONE (06:03)
[2023-03-15] MEDS ORDERED: MIDODRINE HCL 5 MG TABLET PO ONE ×2 (06:13→12:00)
[2023-03-15] MEDS ORDERED: SODIUM PHOSPHATE - 0 MM in DEXTROSE 5%-WATER - 250 ML IVPB ONE ×2 (06:15→15:30)
[2023-03-15 06:22] LABS: POTASSIUM 3.6 mmol/L (3.5-5.1)
[2023-03-15 06:24] LABS: CALCIUM 7.3 mg/dL (8.5-10.1)
[2023-03-15 06:25] LABS: ALBUMIN 1.4 g/dl (3.4-5.0); BLOOD UREA NITROGEN 4.9 mg/dL (7-18)
[2023-03-15 06:28] LABS: CREATININE 1.7 mg/dL (0.55-1.3)
[2023-03-15 06:30] LABS: BILIRUBIN,TOTAL 1.1 mg/dL (0.2-1)
[2023-03-15] MEDS ORDERED: SODIUM CHLORIDE 500 ML IV STA ×2 (06:43→18:06)
[2023-03-15] MEDS ORDERED: ASPIRIN COATED 81 MG TABLET.EC ONE (09:39)
[2023-03-15] MEDS ORDERED: FAMOTIDINE 20 MG TABLET ONE (09:39)
[2023-03-15] MEDS ORDERED: CLOPIDOGREL BISULFATE 75 MG TABLET (FP) ONE (09:39)
[2023-03-15] MEDS ORDERED: MIDODRINE HCL 5 MG TABLET ONE (09:40)
[2023-03-15] MEDS ORDERED: FAMOTIDINE 20 MG TABLET PO SCH ×2 (10:00→22:00)
[2023-03-15] MEDS ORDERED: SODIUM HYPOCHLORITE 0.25%- 473 ML BULK BOTTLE NR SCH (10:00)
[2023-03-15] MEDS ORDERED: MIDODRINE HCL 5 MG TABLET PO SCH (10:00)
[2023-03-15] MEDS ORDERED: VITAMIN B COMP W-C 1 EA TABLET (NEPHRO-VITE) PO SCH (10:00)
[2023-03-15] MEDS ORDERED: CLOPIDOGREL BISULFATE 75 MG TABLET (FP) PO SCH (10:00)
[2023-03-15] MEDS ORDERED: ASPIRIN COATED 81 MG TABLET.EC PO SCH (10:00)
[2023-03-15] MEDS ORDERED: VANCOMYCIN 1 GM PREMIX - 1 GM/200 ML BAG IVPB ONE (10:00)
[2023-03-15] MEDS: MIDODRINE HCL 5 MG TABLET PO SCH ×3 (10:33→17:28)
[2023-03-15] MEDS ORDERED: CEFTRIAXONE 2 GM-D5W BAG 2 GM/50 ML BAG IVPB SCH (12:45)
[2023-03-15] MEDS: CEFTRIAXONE 2 GM in DEXTROSE 5%-WATER 100 ML IVPB SCH (14:14)
[2023-03-15 14:57] LABS: PHOSPHOROUS 1.9 mg/dL (2.5-4.9)
[2023-03-15] MEDS ORDERED: SODIUM CHLORIDE 250 ML IV PRN (17:00)
[2023-03-15] MEDS ORDERED: SODIUM CHLORIDE 250 ML IV STA (17:29)
[2023-03-15] MEDS ORDERED: PIPERACILLIN/TAZOB 2.25 GM 2.25 GM in DEXTROSE 5%-WATER - 50 ML IVPB SCH (18:00)
[2023-03-15] MEDS: ROSUVASTATIN CA 10 MG TABLET PO SCH (21:18)
[2023-03-15] MEDS: LACTOBACILLUS ACIDOPHILUS 1 TABLET PO SCH (21:18)
[2023-03-15] MEDS: CHLORHEXIDINE GLUCONATE 4% CLEANSER FOR DECOLONIZATION TP SCH (21:19)
[2023-03-15] MEDS: MUPIROCIN 2% TOPICAL OINTMENT FOR DECOLONIZATION NS SCH (21:19)
[2023-03-15] MEDS: ARTIFICIAL TEARS (POLYVINYL ALCOHOL) OPTH DROPS OU PRN (21:19)
[2023-03-15] MEDS ORDERED: LACTOBACILLUS ACIDOPHILUS 1 TABLET PO SCH (22:00)
[2023-03-15] MEDS ORDERED: ROSUVASTATIN CA 20 MG TABLET PO SCH (22:00)
[2023-03-16 07:08] LABS: CHLORIDE 112 mmol/L (98-107); POTASSIUM 3.6 mmol/L (3.5-5.1); SODIUM 141 mmol/L (136-145)
[2023-03-16 07:12] LABS: ALBUMIN 1.3 g/dl (3.4-5.0); CALCIUM 7.8 mg/dL (8.5-10.1)
[2023-03-16 07:14] LABS: ANION GAP 5 MMOL/L (8-16); BLOOD UREA NITROGEN 5.5 mg/dL (7-18); CO2 24 mmol/L (21-32); MAGNESIUM 1.7 mg/dL (1.8-2.4)
[2023-03-16 07:16] LABS: SGPT/ALT 38 U/L (13-61)
[2023-03-16 07:17] LABS: PHOSPHOROUS 2.2 mg/dL (2.5-4.9); SGOT/AST 97 U/L (15-37)
[2023-03-16 07:18] LABS: BILIRUBIN,TOTAL 1.4 mg/dL (0.2-1); HEMATOCRIT 29.7 % (35.4-49); MCH 34.7 pg (25.7-33.7); MCHC 33.6 g/dl (32.0-35.9); MEAN CELL VOLUME 103.3 fl (80-96); MEAN PLT VOLUME 10.3 fl (7.5-11.1); PLATELET COUNT 49 10^3/uL (134-434); RBC 2.87 M/mm3 (4.00-5.60); RDW 19.7 % (11.9-15.9); TOT PROT 3.9 g/dl (6.4-8.2); WHITE BLOOD COUNT 8.5 K/mm3 (4.0-10.0)
[2023-03-16 07:20] LABS: ALK PHOS 336 U/L (45-117); GLUCOSE,RANDOM 39 mg/dL (74-106)
[2023-03-16] MEDS ORDERED: DEXTROSE 50%-WATER - 25 GM/50 ML VIAL IVPUSH ONE (07:58)
[2023-03-16] MEDS ORDERED: MAGNESIUM SULF 50% (8.12 MEQ/2 ML-1 GM VIAL) IVPB ONE (08:03)
[2023-03-16] MEDS ORDERED: DEXTROSE 50%-WATER 25 GM/50 ML DISP.SYRIN ONE (08:03)
[2023-03-16] MEDS ORDERED: NAPH,MB-DB/K PH,MBDB POWDER PACKET PO ONE (08:03)
[2023-03-16] MEDS ORDERED: DEXTROSE 50%-WATER 25 GM/50 ML DISP.SYRIN IVPUSH ONE (08:13)
[2023-03-16 08:58] LABS: ANISOCYTOSIS 1+; MACROCYTOSIS 1+
[2023-03-16] MEDS: MIDODRINE HCL 5 MG TABLET PO SCH ×3 (09:05→17:50)
[2023-03-16] MEDS: VITAMIN B COMP W-C 1 EA TABLET (NEPHRO-VITE) PO SCH (09:08)
[2023-03-16] MEDS: CLOPIDOGREL BISULFATE 75 MG TABLET (FP) PO SCH (09:08)
[2023-03-16] MEDS: FAMOTIDINE 10 MG TABLET PO SCH (09:09)
[2023-03-16] MEDS: MUPIROCIN 2% TOPICAL OINTMENT FOR DECOLONIZATION NS SCH ×2 (09:09→21:00)
[2023-03-16] MEDS: SODIUM HYPOCHLORITE 0.25%- 473 ML BULK BOTTLE NR SCH (09:11)
[2023-03-16] MEDS: CEFTRIAXONE 2 GM in DEXTROSE 5%-WATER 100 ML IVPB SCH (09:12)
[2023-03-16] MEDS: ARTIFICIAL TEARS (POLYVINYL ALCOHOL) OPTH DROPS OU PRN (09:13)
[2023-03-16] MEDS ORDERED: SODIUM CHLORIDE 250 ML IV PRN (09:20)
[2023-03-16] MEDS ORDERED: SODIUM PHOSPHATE - 15 MM in DEXTROSE 5%-WATER - 250 ML IVPB ONE (09:30)
[2023-03-16] MEDS ORDERED: ALBUMIN HUMAN 25% 12.5 GM/50 ML VIAL IV SCH (10:00)
[2023-03-16 13:37] VITALS: BMI 21.4
[2023-03-16] MEDS ORDERED: MELATONIN 5 MG TABLETS PO PRN (17:25)
[2023-03-16] MEDS ORDERED: ALBUMIN HUMAN 5% 250 ML IV SOLUTION IV ONE ×2 (19:45)
[2023-03-16] MEDS ORDERED: ALBUMIN HUMAN 5% 500 ML IV SOLUTION IV ONE (20:00)
[2023-03-16] MEDS: LACTOBACILLUS ACIDOPHILUS 1 TABLET PO SCH (20:59)
[2023-03-16] MEDS: ROSUVASTATIN CA 10 MG TABLET PO SCH (20:59)
[2023-03-16] MEDS: CHLORHEXIDINE GLUCONATE 4% CLEANSER FOR DECOLONIZATION TP SCH (21:00)
[2023-03-16] MEDS: NOREPINEPHRINE BITARTRATE/D5W 8 MG/250 ML BAG IVPB SCH (21:09)
[2023-03-17 06:47] LABS: BASO % 1.4 % (0-2.0); EOS % 1.5 % (0-4.5); HEMATOCRIT 28.9 % (35.4-49); HEMOGLOBIN 9.5 GM/dL (11.7-16.9); MCH 34.7 pg (25.7-33.7); MEAN CELL VOLUME 105.1 fl (80-96); MEAN PLT VOLUME 10.2 fl (7.5-11.1); MONO % 3.9 % (3.8-10.2); NEUT % 86.2 % (42.8-82.8); PLATELET COUNT 49 10^3/uL (134-434); RBC 2.75 M/mm3 (4.00-5.60); RDW 19.4 % (11.9-15.9); WHITE BLOOD COUNT 8.7 K/mm3 (4.0-10.0)
[2023-03-17 07:08] LABS: POTASSIUM 3.6 mmol/L (3.5-5.1)
[2023-03-17 07:14] LABS: BLOOD UREA NITROGEN 7.4 mg/dL (7-18); CALCIUM 7.6 mg/dL (8.5-10.1)
[2023-03-17 07:17] LABS: CREATININE 2.5 mg/dL (0.55-1.3)
[2023-03-17 07:19] LABS: BILIRUBIN,TOTAL 1.7 mg/dL (0.2-1); TOT PROT 4.1 g/dl (6.4-8.2)
[2023-03-17 07:36] LABS: ALBUMIN 1.7 g/dl (3.4-5.0)
[2023-03-17] MEDS: MIDODRINE HCL 5 MG TABLET PO SCH ×4 (08:00→18:03)
[2023-03-17] MEDS: AMINO ACIDS/PROTEIN HYDROLYS 30 ML LIQUID.PKT GT SCH (08:01)
[2023-03-17] MEDS: ALBUMIN HUMAN 25% 12.5 GM/50 ML VIAL IV SCH ×4 (08:25→09:55)
[2023-03-17 08:40] LABS: PHOSPHOROUS 2.7 mg/dL (2.5-4.9)
[2023-03-17 08:41] LABS: ANISOCYTOSIS 1+; MACROCYTOSIS 1+
[2023-03-17] MEDS: CLOPIDOGREL BISULFATE 75 MG TABLET (FP) PO SCH (10:26)
[2023-03-17] MEDS: CEFTRIAXONE 2 GM in DEXTROSE 5%-WATER 100 ML IVPB SCH (10:26)
[2023-03-17] MEDS: VITAMIN B COMP W-C 1 EA TABLET (NEPHRO-VITE) PO SCH (10:26)
[2023-03-17] MEDS: SODIUM HYPOCHLORITE 0.25%- 473 ML BULK BOTTLE NR SCH (10:27)
[2023-03-17] MEDS: MUPIROCIN 2% TOPICAL OINTMENT FOR DECOLONIZATION NS SCH ×2 (10:30→21:09)
[2023-03-17] MEDS: FAMOTIDINE 10 MG TABLET PO SCH (10:30)
[2023-03-17] MEDS: PIPERACILLIN/TAZOB 2.25 GM 2.25 GM in DEXTROSE 5%-WATER - 50 ML IVPB SCH (18:03)
[2023-03-17] MEDS: CHLORHEXIDINE GLUCONATE 4% CLEANSER FOR DECOLONIZATION TP SCH (21:09)
[2023-03-17] MEDS: NOREPINEPHRINE BITARTRATE/D5W 8 MG/250 ML BAG IVPB SCH (21:09)
[2023-03-17] MEDS: ROSUVASTATIN CA 10 MG TABLET PO SCH (21:09)
[2023-03-17] MEDS: LACTOBACILLUS ACIDOPHILUS 1 TABLET PO SCH (21:09)
[2023-03-17] MEDS ORDERED: ONDANSETRON 4 MG/2 ML VIAL IVPB ONE (23:05)
[2023-03-18] MEDS: PIPERACILLIN/TAZOB 2.25 GM 2.25 GM in DEXTROSE 5%-WATER - 50 ML IVPB SCH ×2 (01:16→09:35)
[2023-03-18 07:05] LABS: BASO % 0.6 % (0-2.0); EOS % 0.5 % (0-4.5); HEMATOCRIT 31.9 % (35.4-49); HEMOGLOBIN 10.5 GM/dL (11.7-16.9); MCH 34.3 pg (25.7-33.7); MCHC 32.9 g/dl (32.0-35.9); MEAN CELL VOLUME 104.1 fl (80-96); MEAN PLT VOLUME 10.2 fl (7.5-11.1); MONO % 3.5 % (3.8-10.2); NEUT % 89.4 % (42.8-82.8); PLATELET COUNT 44 10^3/uL (134-434); RBC 3.07 M/mm3 (4.00-5.60); RDW 19.9 % (11.9-15.9); WHITE BLOOD COUNT 11.8 K/mm3 (4.0-10.0)
[2023-03-18 07:21] LABS: POTASSIUM 3.3 mmol/L (3.5-5.1)
[2023-03-18 07:24] LABS: CALCIUM 7.9 mg/dL (8.5-10.1)
[2023-03-18 07:29] LABS: CREATININE 1.8 mg/dL (0.55-1.3); PHOSPHOROUS 2.1 mg/dL (2.5-4.9)
[2023-03-18 07:30] LABS: BILIRUBIN,TOTAL 2.9 mg/dL (0.2-1); TOT PROT 4.5 g/dl (6.4-8.2)
[2023-03-18] MEDS ORDERED: ALBUTEROL SO4 2.5/IPRATROPIUM 0.5 INH SOL 3 ML VIAL.NEB. NEB PRN (09:22)
[2023-03-18] MEDS ORDERED: NAPH,MB-DB/K PH,MBDB POWDER PACKET PO ONE (09:30)
[2023-03-18] MEDS: VITAMIN B COMP W-C 1 EA TABLET (NEPHRO-VITE) PO SCH (09:36)
[2023-03-18] MEDS: CLOPIDOGREL BISULFATE 75 MG TABLET (FP) PO SCH (09:36)
[2023-03-18] MEDS: AMINO ACIDS/PROTEIN HYDROLYS 30 ML LIQUID.PKT GT SCH (09:36)
[2023-03-18] MEDS: MIDODRINE HCL 5 MG TABLET PO SCH ×3 (09:36→17:36)
[2023-03-18] MEDS: MUPIROCIN 2% TOPICAL OINTMENT FOR DECOLONIZATION NS SCH ×2 (09:36→21:15)
[2023-03-18] MEDS: FAMOTIDINE 10 MG TABLET PO SCH (09:36)
[2023-03-18] MEDS: SODIUM HYPOCHLORITE 0.25%- 473 ML BULK BOTTLE NR SCH (09:37)
[2023-03-18] MEDS ORDERED: MAGNESIUM 2GM/50ML STERILE WATER IVPB IVPB ONE (09:45)
[2023-03-18] MEDS: KCL 10 MEQ IVPB 10 MEQ/100 ML INFUS.BAG IVPB SCH ×3 (10:04→15:08)
[2023-03-18] MEDS ORDERED: INSULIN (NOVOLOG) ASPART 100 UNITS/ML 10ML VIAL ONE (11:20)
[2023-03-18] MEDS ORDERED: INSULIN (LEVEMIR) 100 UNITS/ML UNITS SQ ONE (11:20)
[2023-03-18] MEDS ORDERED: MIDAZOLAM HCL 2 MG/2 ML SINGLE DOSE VIAL IVPUSH ONE ×2 (12:56→17:51)
[2023-03-18] MEDS: MEROPENEM 1 GM in DEXTROSE 5%-WATER 100 ML IVPB SCH (15:08)
[2023-03-18] MEDS ORDERED: MIDAZOLAM HCL 2 MG/2 ML SINGLE DOSE VIAL ONE (17:55)
[2023-03-18] MEDS ORDERED: SODIUM CHLORIDE 250 ML IV PRN (21:00)
[2023-03-18] MEDS: LACTOBACILLUS ACIDOPHILUS 1 TABLET PO SCH (21:15)
[2023-03-18] MEDS: NOREPINEPHRINE BITARTRATE/D5W 8 MG/250 ML BAG IVPB SCH (21:15)
[2023-03-18] MEDS: ROSUVASTATIN CA 10 MG TABLET PO SCH (21:15)
[2023-03-18] MEDS: CHLORHEXIDINE GLUCONATE 4% CLEANSER FOR DECOLONIZATION TP SCH (21:15)
[2023-03-19] MEDS: MEROPENEM 1 GM in DEXTROSE 5%-WATER 100 ML IVPB SCH ×2 (00:24→14:40)
[2023-03-19 04:06] VITALS: TEMP 97.3
[2023-03-19 06:51] LABS: POTASSIUM 4.2 mmol/L (3.5-5.1)
[2023-03-19 06:55] LABS: ALBUMIN 1.8 g/dl (3.4-5.0); BLOOD UREA NITROGEN 6.4 mg/dL (7-18); CALCIUM 8.1 mg/dL (8.5-10.1); MAGNESIUM 1.9 mg/dL (1.8-2.4)
[2023-03-19 06:58] LABS: CREATININE 2.1 mg/dL (0.55-1.3)
[2023-03-19 06:59] LABS: PHOSPHOROUS 2.7 mg/dL (2.5-4.9)
[2023-03-19 07:00] LABS: BILIRUBIN,TOTAL 2.8 mg/dL (0.2-1); TOT PROT 4.5 g/dl (6.4-8.2)
[2023-03-19] MEDS ORDERED: VASOPRESSIN 40 UNITS/100 ML BAG IV SCH (07:15)
[2023-03-19 07:19] LABS: HEMATOCRIT 30.2 % (35.4-49); HEMOGLOBIN 10.2 GM/dL (11.7-16.9); MCH 34.8 pg (25.7-33.7); MCHC 33.6 g/dl (32.0-35.9); MEAN CELL VOLUME 103.5 fl (80-96); MEAN PLT VOLUME 10.5 fl (7.5-11.1); PLATELET COUNT 43 10^3/uL (134-434); RBC 2.92 M/mm3 (4.00-5.60); RDW 19.5 % (11.9-15.9); WHITE BLOOD COUNT 12.2 K/mm3 (4.0-10.0)
[2023-03-19] MEDS: PIPERACILLIN/TAZOB 2.25 GM 2.25 GM in DEXTROSE 5%-WATER - 50 ML IVPB SCH ×2 (07:49→07:50)
[2023-03-19] MEDS ORDERED: ACETAMINOPHEN 1000 MG/100 ML BAG IVPB ONE (08:00)
[2023-03-19] MEDS ORDERED: EPOETIN ALFA-EPBX 3,000 UNIT/ML VIAL IVPUSH ONE (08:00)
[2023-03-19] MEDS: NOREPINEPHRINE BITARTRATE/D5W 8 MG/250 ML BAG IVPB SCH (08:04)
[2023-03-19] MEDS: AMINO ACIDS/PROTEIN HYDROLYS 30 ML LIQUID.PKT GT SCH (08:09)
[2023-03-19] MEDS ORDERED: MIDAZOLAM HCL 2 MG/2 ML SINGLE DOSE VIAL IVPUSH PRN (08:16)
[2023-03-19] MEDS ORDERED: MIDAZOLAM HCL 2 MG/2 ML SINGLE DOSE VIAL ONE (08:25)
[2023-03-19] MEDS: ALBUMIN HUMAN 25% 12.5 GM/50 ML VIAL IV SCH ×3 (08:37→09:53)
[2023-03-19] MEDS: FAMOTIDINE 10 MG TABLET PO SCH (09:01)
[2023-03-19] MEDS: MUPIROCIN 2% TOPICAL OINTMENT FOR DECOLONIZATION NS SCH ×2 (09:01→22:44)
[2023-03-19] MEDS: VITAMIN B COMP W-C 1 EA TABLET (NEPHRO-VITE) PO SCH (09:01)
[2023-03-19] MEDS: MIDODRINE HCL 5 MG TABLET PO SCH (09:02)
[2023-03-19] MEDS: CLOPIDOGREL BISULFATE 75 MG TABLET (FP) PO SCH (09:02)
[2023-03-19] MEDS: SODIUM HYPOCHLORITE 0.25%- 473 ML BULK BOTTLE NR SCH (09:03)
[2023-03-19] MEDS ORDERED: MORPHINE SULFATE/0.9% NACL/PF 100 MG/100 ML BAG ONE (09:23)
[2023-03-19] MEDS ORDERED: MORPHINE SULFATE/0.9% NACL/PF 100 MG/100 ML BAG IVPB SCH (09:30)
[2023-03-19] MEDS: CHLORHEXIDINE GLUCONATE 4% CLEANSER FOR DECOLONIZATION TP SCH (22:44)
[2023-03-20 00:19] VITALS: BP 47/30
[2023-03-20 06:28] VITALS: PULSE 42; RESP 14
== END 2023-03-20 09:03 | disposition expired | DRG 871 ==
LOC: JER 17:16 → JERBED 23:21 → J5S 03-15 00:38 → JERBED 03-15 06:23 → JICU 03-15 11:08
PROVIDERS: ADMIT Internal Medicine
PROC: 05HD33Z Insertion of Infusion Device into Right Cephalic Vein, Percutaneous Approach (ICD-10-PCS; principal; 2023-03-15)
PROC: 05HM33Z Insertion of Infusion Device into Right Internal Jugular Vein, Percutaneous Approach (ICD-10-PCS; 2023-03-18)
PROC: B543ZZA Ultrasonography of Right Jugular Veins, Guidance (ICD-10-PCS; 2023-03-18)
DX: A41.9 Sepsis, unspecified organism (principal); J96.01 Acute respiratory failure with hypoxia; N18.6 End stage renal disease; R65.21 Severe sepsis with septic shock; M86.9 Osteomyelitis, unspecified; I13.2 Hypertensive heart and chronic kidney disease with heart failure and with stage 5 chronic kidney disease, or end stage renal disease; I50.22 Chronic systolic (congestive) heart failure; E46 Unspecified protein-calorie malnutrition; L89.610 Pressure ulcer of right heel, unstageable; D69.6 Thrombocytopenia, unspecified; I25.10 Atherosclerotic heart disease of native coronary artery without angina pectoris; Z95.1 Presence of aortocoronary bypass graft; E78.5 Hyperlipidemia, unspecified; Z68.21 Body mass index [BMI] 21.0-21.9, adult
CPT/HCPCS: 0241U-QW; 36415; 70450-TC; 71045-TC-FY; 73630-TC-RT-FY; 80053; 82962; 83036; 83605; 83735; 84100; 84484; 85025; 85027; 85610; 85651; 85730; 86140; 86704; 86705; 86803; 87040; 87070; 87081; 87186; 87205; 87340; 93005; 93010; 99285-25; G0480; J3490; P9047